=== PATIENT | male | born 1990 | race African-American/Black ===

== ENCOUNTER 2017-12-18 07:24 | Day surgery (SDC) | payer OTHER ==
[2017-12-15 14:40] LABS: Hematocrit 20.8 % (39.6-49.0)
[2017-12-18] MEDS ORDERED: NA CHLORIDE 0.9% 250 ML ONE (07:42)
[2017-12-18 07:43] VITALS: TEMP 98.1
[2017-12-18] MEDS ORDERED: FUROSEMIDE 40 MG/4 ML VIAL ONE (10:27)
[2017-12-18 10:56] VITALS: BP 161/66
[2017-12-18 12:21] VITALS: O2SAT 97
== END 2017-12-18 11:49 | disposition home or self-care (01) ==
LOC: DS 07:24
PROVIDERS: ATTEND Internal Medicine Nephrology
PROC: 30233N1 Transfusion of Nonautologous Red Blood Cells into Peripheral Vein, Percutaneous Approach (ICD-10-PCS; principal; 2017-12-18)
DX: D63.1 Anemia in chronic kidney disease (principal); N18.6 End stage renal disease; Z99.2 Dependence on renal dialysis
CPT/HCPCS: 36415; 36430; 85014; 85018; 86850; 86900; 86901; P9016

== ENCOUNTER 2019-03-15 13:53 | Emergency (ER) | payer OTHER ==
--- OUTSIDE RECORDS SUMMARY | 2019-03-15 13:56 | XMS REPORT | Clinical Summary ---
:1990 Author Organization [facility] Address [address] [place] [address] Care Team Providers Name Role Phone Dago Ortez MD Primary Care Provider Allergies No Known Allergies Medications Medication Sig Dispensed Refills Start Date End Date Status NIFEdipine CC 1 T PO BID 0 08/28/2018 Active (ADALAT CC) 90 MG 24 hr tablet sevelamer (RENVELA) 3 Tab PO TID 10 09/26/2018 Active 800 mg tablet WITH MEALS AND 1 T PO BID WITH A SNACK carvedilol (COREG) Take 50 mg by 0 Active 25 MG tablet mouth 2 (two) times a day with meals. famotidine (PEPCID) Take 20 mg by 0 Active 20 MG tablet mouth 2 (two) times a day. carvedilol (COREG) TK 2 TS PO BID 0 08/28/2018 Discontinued 25 MG tablet 9 hydrALAZINE 1 T PO BID 1 08/28/2018 Discontinued (APRESOLINE) 100 MG 9 tablet ramipril (ALTACE) 10 ONE PO QHS 2 08/28/2018 Discontinued MG capsule 9 doxazosin (CARDURA) 8mg 2x aday 3 10/26/2018 Discontinued 8 MG tablet 9 doxazosin (CARDURA) Take 8 mg by 0 Discontinued 4 MG tablet mouth 2 (two) 9 times a day. traMADol (ULTRAM) 50 Take 1 tablet 20 tablet 0 12/16/2018 mg tablet (50 mg total) 9 by mouth every 6 (six) hours as needed for moderate pain for up to 5 days. ferrous sulfate Take 1 tablet 30 tablet 0 12/16/2018 (FERROUSUL) 325 (65 (325 mg total) 9 FE) MG tablet by mouth daily with breakfast for 30 days. folic acid (FOLVITE) Take 1 tablet 30 tablet 0 12/16/2018 1 MG tablet (1 mg total) 9 by mouth daily for 30 days. cyanocobalamin Take 1 tablet 30 tablet 0 12/16/2018 (cyanocobalamin) (1,000 mcg 9 1000 MCG tablet total) by mouth daily for 30 days. doxazosin (CARDURA) Take 1 tablet 30 tablet 0 02/09/2019 4 MG tablet (4 mg total) 9 by mouth daily for 30 days. hydrALAZINE Take 1 tablet 60 tablet 0 02/08/2019 (APRESOLINE) 100 MG (100 mg total) 9 tablet by mouth every 12 (twelve) hours for 30 days. ramipril (ALTACE) 10 Take 1 capsule 30 capsule 0 02/09/2019 MG capsule (10 mg total) 9 by mouth daily for 30 days. 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 Overview: Added automatically from request for surgery [id number] Encounters Date Type Specialty Care Team Description 02/26/2019 Office Visit Cardiovascular Elizabeth Clemente Encounter regarding TRA Sanchez vascular access for dialysis for end-stage renal disease (HCC) (Primary Dx) 02/06/2019 Surgery General Surgery LEFT ARM AV FISTULA REVISION 02/06/2019 Anesthesia Event General Surgery Lucinda Bone FNP 02/06/2019 - Hospital Encounter General Internal Orlin De Luna ESRD (end stage renal disease) on dialysis ([facility]); 02/08/2019 Medicine MD Erlinda Anemia of chronic disease Yanira Mcfarland MD 01/04/2019 Prep for Surgery Cardiovascular Elizabeth Clemente ESRD (end stage renal disease) on dialysis ([facility]) (Primary Dx); TRA Sanchez Anemia of chronic disease 01/04/2019 Orders Only Cardiovascular Elizabeth Clemente Encounter regarding TRA Sanchez vascular access for dialysis for end-stage renal disease ([facility]) (Primary Dx) 01/03/2019 Office Visit Cardiovascular Orlin De Luna Aneurysm of arteriovenous dialysis fistula, subsequent encounter (Primary Dx); MD Erlinda Encounter regarding vascular access for dialysis for end- stage renal disease (HCC) 12/24/2018 Telephone Cardiovascular Jakob Cohn MA 12/12/2018 Surgery General Surgery LEFT AV FISTULOGRAM WITH ANGIOPLASTY AND REVISION 12/12/2018 Anesthesia Event General Surgery Lucinda Bone, MARKETING COMMUNICATIONS SPECIALIST 12/12/2018 - Hospital Encounter General Internal Orlin De Luna Aneurysm of 12/16/2018 Medicine MD Erlinda arteriovenous [place], dialysis fistula, MD Yanira initial encounter (HCC) 12/10/2018 Telephone Cardiovascular Jakob Cohn MA 11/27/2018 Telephone Cardiovascular Emilia Raya RN 11/22/2018 Hospital Encounter Radiology Orlin De Luna Preop testing MD Erlinda 11/22/2018 Pre-Admit Testing Pre-Admission Testing Orlin De Luna Preop testing (Primary Dx); Appointment MD Erlinda Aneurysm of arteriovenous dialysis fistula, initial encounter (HCC) 11/02/2018 Prep for Surgery Cardiovascular Elkin Raya, DAVID arteriovenous dialysis fistula, initial encounter (HCC) (Primary Dx) 11/02/2018 Orders Only Cardiovascular Elkin Raya RN arteriovenous dialysis fistula, initial encounter (HCC) (Primary Dx) 11/02/2018 Telephone Cardiovascular Jakob Cohn MA 10/18/2018 Office Visit Cardiovascular Orlin De Luna Encounter regarding MD Erlinda vascular access for dialysis for end-stage renal disease (HCC) (Primary Dx) 09/20/2018 Office Visit Cardiovascular Orlin De Luna Aneurysm of arteriovenous dialysis fistula, initial encounter (HCC) (Primary Dx); MD Erlinda Left arm swelling after 03/14/2018 Family History Medical History Relation Name Comments Hypertension Father Hypertension Mother Relation Name Status Comments Father Alive Mother Alive Social History Tobacco Use Types Packs/Day Years Used Date Never Smoker Smokeless Tobacco: Never Used Alcohol Use Drinks/Week oz/Week Comments No Alcohol Habits Answer Date Recorded How often do you have a drink containing alcohol? Never 12/12/2018 How many drinks containing alcohol do you have on a typical Not asked day when you are drinking? How often do you have six or more drinks on one occasion? Not asked Sex Assigned at Date Recorded Not on file Job Start Date Occupation Industry Not on file Not on file Not on file Travel History Travel Start Travel End No recent travel history available. Last Filed Vital Signs Vital Sign Reading Time Taken Blood Pressure 135/70 02/26/2019 11:15 AM CDT Pulse 81 02/26/2019 11:15 AM CDT Temperature 37.2 C (99 F) 02/08/2019 4:16 PM CDT Respiratory Rate 25 02/08/2019 4:30 PM CDT Oxygen Saturation 96% 02/26/2019 11:15 AM CDT Inhaled Oxygen Concentration - - Weight 98.9 kg (218 lb) 02/08/2019 3:45 AM CDT Height 195.6 cm (6' 5") 02/06/2019 8:37 PM CDT Body Mass Index 25.85 02/06/2019 8:37 PM CDT Plan of Treatment Health Maintenance Due Date Last Done Comments INFLUENZA VACCINE 03/21/2019 Procedures Procedure Name Priority Date/Time Associated Comments Diagnosis HEPATITIS B SURFACE Routine 02/08/2019 12:45 Results for this ANTIGEN PM CDT procedure are in the results section. HEMODIALYSIS Routine 02/08/2019 12:12 PM CDT ESTIMATED GFR Routine 02/08/2019 6:25 Results for this AM CDT procedure are in the results section. BASIC METABOLIC PANEL Routine 02/08/2019 6:25 Results for this AM CDT procedure are in the results section. HC COMPLETE BLD COUNT Routine 02/08/2019 6:25 Results for this W/AUTO DIFF AM CDT procedure are in the results section. ESTIMATED GFR Routine 02/07/2019 5:10 Results for this AM CDT procedure are in the results section. BASIC METABOLIC PANEL Routine 02/07/2019 5:10 Results for this AM CDT procedure are in the results section. CBC WITH PLATELET AND Routine 02/07/2019 5:10 Results for this DIFFERENTIAL AM CDT procedure are in the results section. NV AN ELECTIVE Routine 02/06/2019 2:07 SUPRAGLOTTIC AIRWAY PM CDT Procedure Note - Efrem Nielson CRNA - 02/06/2019 2:07 PM CDT Airway Date/Time: 02/06/2019 1:11 PM Performed by: Efrem Nielson CRNA Authorized by: Bhanu Hamilton MD Location: OR Urgency: Elective Anesthesiologist: Bhanu Hamilton MD Resident/BURNISHER AND BUMPER/AA: Efrem Nielson CRNA Performed by: resident/BURNISHER AND BUMPER/AA Preoxygenated with 100% O2: Yes Mask Ventilation: Easy mask Final Airway Type: Supraglottic airway Final LMA: I-Gel LMA Size: 5 Number of Attempts at Approach: 1 POC PANEL 4 Routine 02/06/2019 11:54 AM Results for this CDT procedure are in the results section. ESTIMATED GFR STAT 02/06/2019 11:50 AM Results for this CDT procedure are in the results section. TYPE AND SCREEN STAT 02/06/2019 11:50 AM Results for this CDT procedure are in the results section. PROTHROMBIN TIME WITH STAT 02/06/2019 11:50 AM ESRD (end stage Results for this INR CDT renal disease) on procedure are in dialysis ([facility]) the results section. PARTIAL THROMBOPLASTIN STAT 02/06/2019 11:50 AM ESRD (end stage Results for this TIME (PTT) CDT renal disease) on procedure are in dialysis ([facility]) the results section. HC COMPLETE BLD COUNT STAT 02/06/2019 11:50 AM ESRD (end stage Results for this W/AUTO DIFF CDT renal disease) on procedure are in dialysis ([facility]) the results Anemia of chronic section. disease BASIC METABOLIC PANEL STAT 02/06/2019 11:50 AM ESRD (end stage Results for this CDT renal disease) on procedure are in dialysis ([facility]) the results section. ESTIMATED GFR Routine 12/16/2018 5:44 AM Results for this CDT procedure are in the results section. BASIC METABOLIC PANEL Routine 12/16/2018 5:44 AM Results for this CDT procedure are in the results section. HC COMPLETE BLD COUNT Routine 12/16/2018 5:44 AM Results for this W/AUTO DIFF CDT procedure are in the results section. HEMODIALYSIS Routine 12/15/2018 11:19 AM CDT HC COMPLETE BLD COUNT Routine 12/15/2018 6:14 AM Results for this W/AUTO DIFF CDT procedure are in the results section. ESTIMATED GFR Routine 12/15/2018 6:14 AM Results for this CDT procedure are in the results section. BASIC METABOLIC PANEL Routine 12/15/2018 6:14 AM Results for this CDT procedure are in the results section. TRANSFUSE RED BLOOD STAT 12/14/2018 11:39 AM CELLS CDT HEMODIALYSIS Routine 12/14/2018 10:52 AM CDT HEPATITIS B SURFACE Routine 12/14/2018 7:30 AM Results for this ANTIBODY CDT procedure are in the results section. HEPATITIS B SURFACE AB, Routine 12/14/2018 7:30 AM Results for this QUANTITATIVE CDT procedure are in the results section. HEPATITIS B SURFACE Routine 12/14/2018 7:30 AM Results for this ANTIGEN CDT procedure are in the results section. ESTIMATED GFR Routine 12/14/2018 5:15 AM Results for this CDT procedure are in the results section. HC COMPLETE BLD COUNT Routine 12/14/2018 5:15 AM Results for this W/AUTO DIFF CDT procedure are in the results section. BASIC METABOLIC PANEL Routine 12/14/2018 5:15 AM Results for this CDT procedure are in the results section. ESTIMATED GFR Routine 12/13/2018 6:00 AM Results for this CDT procedure are in the results section. HC COMPLETE BLD COUNT Routine 12/13/2018 6:00 AM Results for this W/AUTO DIFF CDT procedure are in the results section. BASIC METABOLIC PANEL Routine 12/13/2018 6:00 AM Results for this CDT procedure are in the results section. OR FL < 1 HOUR Routine 12/12/2018 7:52 PM Results for this CDT procedure are in the results section. MAGNESIUM LEVEL Routine 12/12/2018 6:38 PM Results for this CDT procedure are in the results section. GLUCOSE LEVEL, SYRINGE Routine 12/12/2018 6:38 PM Results for this CDT procedure are in the results section. IONIZED CALCIUM, Routine 12/12/2018 6:38 PM Results for this ARTERIAL CDT procedure are in the results section. POTASSIUM, SYRINGE Routine 12/12/2018 6:38 PM Results for this CDT procedure are in the results section. HEMOGLOBIN, SYRINGE Routine 12/12/2018 6:38 PM Results for this CDT procedure are in the results section. ARTERIAL BLOOD GAS, Routine 12/12/2018 6:38 PM Results for this CORRECTED CDT procedure are in the results section. SODIUM LEVEL, SYRINGE Routine 12/12/2018 6:38 PM Results for this CDT procedure are in the results section. ACTIVATED CLOTTING TIME Routine 12/12/2018 6:35 PM Results for this CDT procedure are in the results section. MAGNESIUM LEVEL Routine 12/12/2018 5:44 PM Results for this CDT procedure are in the results section. GLUCOSE LEVEL, SYRINGE Routine 12/12/2018 5:44 PM Results for this CDT procedure are in the results section. HEMOGLOBIN, SYRINGE Routine 12/12/2018 5:44 PM Results for this CDT procedure are in the results section. IONIZED CALCIUM, Routine 12/12/2018 5:44 PM Results for this ARTERIAL CDT procedure are in the results section. POTASSIUM, SYRINGE Routine 12/12/2018 5:44 PM Results for this CDT procedure are in the results section. SODIUM LEVEL, SYRINGE Routine 12/12/2018 5:44 PM Results for this CDT procedure are in the results section. ARTERIAL BLOOD GAS, Routine 12/12/2018 5:44 PM Results for this CORRECTED CDT procedure are in the results section. ACTIVATED CLOTTING TIME Routine 12/12/2018 5:40 PM Results for this CDT procedure are in the results section. ARTERIAL LINE Routine 12/12/2018 4:55 PM CDT Procedure Note - Crescencio Nicholson - 12/12/2018 4:55 PM CDT Arterial line Performed by: Crescencio Nicholson CRNA Authorized by: Aby Robles MD Patient Location: OR Staff: Anesthesiologist: Aby Robles MD Performed by: Anesthesiologist Pre-procedure: patient identified, IV checked, site and side verified, risks and benefits discussed, procedure verified, surgical consent complete, patient position confirmed, monitors and equipment checked and pre-op evaluation complete MSBT: antiseptic used, all elements of maximal sterile barrier technique followed, hand hygiene performed, cap/gown used by other personnel and solutions labeled Indications: Indications: multiple ABGs and hemodynamic monitoring Anesthesia: Anesthesia: General Procedure Details: Arterial Line placement: Placed post induction Line placement site: Radial Line placement side: Right Arterial line gauge: 20 G Number of attempts: 2 Ultrasound guidance used: Yes Post-procedure: Post-procedure: Sterile dressing applied Post procedure circulation, sensation, movement: Normal and unchanged Patient tolerance: Patient tolerated the procedure well with no immediate complications ACTIVATED CLOTTING TIME Routine 12/12/2018 4:48 PM CDT ACTIVATED CLOTTING TIME Routine 12/12/2018 4:40 PM CDT HEMOGLOBIN, SYRINGE Routine 12/12/2018 4:34 PM CDT IONIZED CALCIUM, ARTERIAL Routine 12/12/2018 4:34 PM CDT MAGNESIUM LEVEL Routine 12/12/2018 4:34 PM CDT POTASSIUM, SYRINGE Routine 12/12/2018 4:34 PM CDT GLUCOSE LEVEL, SYRINGE Routine 12/12/2018 4:34 PM CDT SODIUM LEVEL, SYRINGE Routine 12/12/2018 4:34 PM CDT ARTERIAL BLOOD GAS, Routine 12/12/2018 4:34 PM CDT Results for this CORRECTED procedure are in the results section. NV AN ELECTIVE SUPRAGLOTTIC Routine 12/12/2018 1:21 PM CDT AIRWAY Procedure Note - Sabrina Kuo CRNA - 12/12/2018 1:21 PM CDT Airway Date/Time: 12/12/2018 1:10 PM Performed by: Sabrina Kuo CRNA Authorized by: Aby Robles MD Location: OR Urgency: Elective Difficult Airway: No Anesthesiologist: Aby Robles MD Resident/BURNISHER AND BUMPER/AA: Sabrina Kuo CRNA Performed by: resident/DARLYN/AA Preoxygenated with 100% O2: Yes C-spine Precautions Maintained Throughout: Yes Mask Ventilation: Easy mask Final Airway Type: Supraglottic airway Final LMA: I-Gel LMA Size: 5 Number of Attempts at Approach: 1 POC PANEL 4 Routine 12/12/2018 11:48 Results for this AM CDT procedure are in the results section. PREPARE RBC STAT 12/12/2018 11:40 Results for this AM CDT procedure are in the results section. PREPARE RBC STAT 12/12/2018 11:40 Results for this AM CDT procedure are in the results section. ESTIMATED GFR STAT 12/12/2018 11:40 Results for this AM CDT procedure are in the results section. TYPE AND SCREEN STAT 12/12/2018 11:40 Results for this AM CDT procedure are in the results section. PARTIAL THROMBOPLASTIN STAT 12/12/2018 11:40 Results for this TIME (PTT) AM CDT procedure are in the results section. PROTHROMBIN TIME WITH STAT 12/12/2018 11:40 Results for this INR AM CDT procedure are in the results section. BASIC METABOLIC PANEL STAT 12/12/2018 11:40 Results for this AM CDT procedure are in the results section. HC COMPLETE BLD COUNT STAT 12/12/2018 11:40 Results for this W/AUTO DIFF AM CDT procedure are in the results section. XR CHEST 2 VW Routine 11/22/2018 11:37 Preop testing Results for this AM CDT procedure are in the results section. TYPE AND SCREEN Routine 11/22/2018 11:08 Preop testing Results for this AM CDT procedure are in the results section. HC COMPLETE BLD COUNT Routine 11/22/2018 11:08 Aneurysm of Results for this W/AUTO DIFF AM CDT arteriovenous procedure are in dialysis fistula, the results initial encounter section. (HCC) PROTHROMBIN TIME WITH Routine 11/22/2018 11:08 Aneurysm of Results for this INR AM CDT arteriovenous procedure are in dialysis fistula, the results initial encounter section. (HCC) PARTIAL THROMBOPLASTIN Routine 11/22/2018 11:08 Aneurysm of Results for this TIME (PTT) AM CDT arteriovenous procedure are in dialysis fistula, the results initial encounter section. (HCC) ECG PRE/POST OP Routine 11/22/2018 10:09 Preop testing Results for this AM CDT procedure are in the results section. after 03/14/2018 Results Hepatitis B surface antigen (02/08/2019 12:45 PM CDT)Only the most recent of2 resultswithin the time period is included. Pathologist [facility] Hepatitis B surface Non-reactive Non-reactive [facility] Specimen Blood Performing Organization Address City/State/Zipcode Phone Number [facility] DEPARTMENT OF PATHOLOGY [address] [place] [address] AND GENOMIC MEDICINE [facility] [id number] Estimated GFR (02/08/2019 6:25 AM CDT)Only the most recent of8 resultswithin the time period is included. [facility] Estimated GFR 6 (A) mL/min/1.73 [facility] Comment: m2 [place] CatergoryUnitsInterpretation HOSPITAL G1 >=90 Normal or high G2 60-89Mildly decreased [id number] to moderately decreased [id number] to severely decreased G4 15-29Severely decreased G5 <15Kidney failure The eGFR was calculated using the Chronic Kidney Disease Epidemiology Collaboration (CKD-EPI) equation. Interpretation is based on recommendations of the National Kidney Foundation-Kidney Disease Outcomes Quality Initiative (NKF-KDOQI) published in 2014. Specimen Plasma specimen Performing Organization Address City/State/Zipcode Phone Number [facility] DEPARTMENT OF PATHOLOGY [address] [place] [address] AND GENOMIC MEDICINE [facility] [address] [place] [address] HOSPITAL CBC with platelet and differential (02/08/2019 6:25 AM CDT)Only the most recent of9 resultswithin the time period is included. WBC 4.6 4.5 - 11.0 k/uL [facility] RBC 3.07 (L) 4.40 - 6.00 [facility] m/uL [facility] HGB 9.2 (L) 14.0 - 18.0 [facility] g/dL [facility] HCT 29.2 (L) 41.0 - 51.0 % [facility] MCV 95.1 82.0 - 100.0 fL [facility] MCH 30.0 27.0 - 34.0 pg [facility] MCHC 31.5 31.0 - 37.0 [facility] g/dL [facility] RDW - SD 49.6 37.0 - 55.0 fL [facility] MPV 10.0 6.9 - 11.0 fL [facility] Platelet count 162 150 - 400 K/uL [facility] Nucleated RBC 0.00 /100 WBC [facility] Neutrophils 68.0 39.0 - 69.0 % [facility] Lymphocytes 16.7 (L) 25.0 - 45.0 % [facility] Monocytes 7.4 0.0 - 10.0 % [facility] Eosinophils 6.7 (H) 0.0 - 5.0 % [facility] Basophils 0.6 0.0 - 1.0 % [facility] Immature granulocytes 0.6 0.0 - 1.0 % [facility] Specimen Blood Performing Organization Address City/[facility]/Zipcode Phone Number [facility] DEPARTMENT OF PATHOLOGY [address] [place] [address] Basic metabolic panel (02/08/2019 6:25 AM CDT)Only the most recent of8 resultswithin the time period is included. Sodium 138 135 - 148 mEq/L [facility] Potassium 4.5 3.5 - 5.0 mEq/L [facility] Chloride 97 (L) 98 - 112 mEq/L [facility] CO2 30 24 - 31 mEq/L [facility] Anion gap 11@ANIO 7 - 15 mEq/L [facility] BUN 34 (H) 6 - 20 mg/dL [facility] Creatinine 11.03 (H) 0.70 - 1.20 mg/dL [facility] Glucose 87 65 - 99 mg/dL [facility] Calcium 9.1 8.3 - 10.2 mg/dL [facility] Specimen Plasma specimen Performing Organization Address City/[facility] Phone Number [facility] DEPARTMENT OF PATHOLOGY [address] [place] [address] [place] [address] HOSPITAL POC panel 4 (02/06/2019 11:54 AM CDT)Only the most recent of2 resultswithin the time period is included. POC sodium 141 135 - 148 [facility] mmol/L [facility] POC potassium 3.4 (L) 3.5 - 5.0 [facility] mmol/L [facility] POC hematocrit 32 (L) 41 - 51 % [facility] POC glucose 84 65 - 99 mg/dL [facility] POC hemoglobin 10.9 (L) 14.0 - 18.0 [facility] Comment: g/dL [place] Meter ID: [id number] HOSPITAL Informatica: Ricardo Lord Specimen Blood Performing Organization Address City/[facility]/Zipcode Phone Number [facility] DEPARTMENT OF PATHOLOGY [address] [place] [address] [place] [address] HOSPITAL Partial thromboplastin time, activated (02/06/2019 11:50 AM CDT)Only the most recent of3 resultswithin the time period is included. PTT 40.0 (H) 23.0 - 36.0 [facility] Comment: [facility] PTT therapeutic range for unfractionated heparin is HOSPITAL 61.0-112.0 seconds which corresponds to Anti-Xa 0.3-0.7 U/ml. Specimen Blood Performing Organization Address City/[facility]/Zipcode Phone Number [facility] DEPARTMENT OF PATHOLOGY [address] [place] [address] [place] [address] HOSPITAL Prothrombin time with INR (02/06/2019 11:50 AM CDT)Only the most recent of3 resultswithin the time period is included. Prothrombin time 14.5 11.5 - 14.5 [facility] INR 1.2 [place] Comment: [facility] International Normalized Ratio (INR) is a [facility] monitoring tool for patients who are stable on oral anticoagulant therapy. An INR of 2.0-3.0 is suggested for deep vein thrombosis/pulmonary embolism. Specimen Blood Performing Organization Address City/[facility]/Zipcode Phone Number [facility] DEPARTMENT OF PATHOLOGY [address] [place] [address] [place] [address] HOSPITAL Type and screen (02/06/2019 11:50 AM CDT)Only the most recent of3 resultswithin the time period is included. ABO grouping A [facility] Rh type POS [facility] Antibody screen (gel) NEG [facility] Specimen Blood Performing Organization Address City/State/Zipcode Phone Number [facility] DEPARTMENT OF PATHOLOGY [address] [place] [address] Transfuse RBC (12/14/2018 11:39 AM CDT)Only the most recent of2 resultswithin the time period is included.Hepatitis B surface Ab, quantitative (12/14/2018 7: 30 AM CDT) Hepatitis B surface 630.50 IU/L [facility] Comment: The anti-HBs is greater than or equal to 10 IU/L. This patient has either had an antibody response to HBV vaccination, received a transfusion, or has recovered from HBV infection. This patient should be considered immune to hepatitis B. An anti-HBs result greater than or equal to 10 IU/L implies immunity. For post-vaccination antibody testing guidelines for the general public refer to MMWR August 12, 2005/Vol. 54(No. 16);09-12, and for healthcare workers refer to MMWR August 09, 2013/Vol. 62(No. 10);09-08. Reference Interval: anti-HBs 9.99 IU/L or less ....... Negative 10.00 IU/L or greater .... Positive Results greater than 1,000.00 IU/L are reported as greater than 1,000.00 IU/L. This assay should not be used for blood donor screening, associated re-entry protocols, or for screening Human Cell, Tissues and Cellular and Tissue-Based Products (HCT/P). Performed by [employer] ([place]), [address] [place] [address] [id number] [email or web address], Fritz Galan MD - Lab. Director Specimen Serum Performing Organization Address [facility] [place]/[facility]/Zipcode Phone Number [facility] [address] [place] [address] [facility] RE[facility] LAB [address] [place] [phone] Hepatitis B surface antibody (12/14/2018 7:30 AM CDT) Hepatitis B surface Reactive (A) Non-reactive [facility] Specimen Performing Organization Address City/[facility]/Zipcode Phone Number [facility] DEPARTMENT OF PATHOLOGY AND [address] [place] [id number] [facility]IC[facility] [address] [address] [place] < 1 Hour (12/12/2018 7:52 PM CDT) Specimen Narrative Performed At EXAMINATION:OR [place] 1 HOUR [facility] CLINICAL HISTORY:intraoperative IMPRESSION: Fluoroscopy was provided. No radiologist present.Please see procedure report for discussion of procedure, findings. [facility]-[id number] Procedure Note Hm Interface, Radiology Results Incoming - 12/12/2018 8:03 PM CDT EXAMINATION: [place] 1 HOUR CLINICAL HISTORY: intraoperative IMPRESSION: Fluoroscopy was provided. No radiologist present. Please see procedure report for discussion of procedure, findings. [facility]-[id number] Performing Organization Address City/State/Zipcode Phone Number [facility] [address] [place] [address] Sodium level, syringe (12/12/2018 6:38 PM CDT)Only the most recent of3 resultswithin the time period is included. Sodium, syringe 137 125 - 148 mEq/L [facility] Specimen Blood Performing Organization Address City/[facility] Phone Number [facility] DEPARTMENT OF PATHOLOGY [address] [place] [address] [place] [address] HOSPITAL Potassium, syringe (12/12/2018 6:38 PM CDT)Only the most recent of3 resultswithin the time period is included. Potassium, syringe 4.7 3.5 - 5.0 mEq/L [facility] Specimen Blood Performing Organization Address [facility] Centercomo Phone Number [facility] DEPARTMENT OF PATHOLOGY [address] [place] [address] Ionized calcium, arterial (12/12/2018 6:38 PM CDT)Only the most recent of3 resultswithin the time period is included. Ionized calcium, 1.11 1.11 - 1.32 [facility] arterial mmol/L [facility] Specimen Blood Performing Organization Address [facility]/Zipcode Phone Number [facility] DEPARTMENT OF PATHOLOGY [address] [place] [address] [place] [address] HOSPITAL Hemoglobin, syringe (12/12/2018 6:38 PM CDT)Only the most recent of3 resultswithin the time period is included. Hemoglobin, syringe 9.4 (L) 14.0 - 18.0 g/dL [facility] Specimen Blood Performing Organization Address City/[facility] Cent[facility]ode Phone Number [facility] DEPARTMENT OF PATHOLOGY [address] [place] [address] [place] [address] HOSPITAL Glucose level, syringe (12/12/2018 6:38 PM CDT)Only the most recent of3 resultswithin the time period is included. Glucose, syringe 99 65 - 99 mg/dL [facility] Specimen Blood Performing Organization Address [facility] Centercode Phone Number [facility] DEPARTMENT OF PATHOLOGY [address] [place] [address] [place] [address] HOSPITAL Arterial blood gas, corrected (12/12/2018 6:38 PM CDT)Only the most recent of3 resultswithin the time period is included. pH, arterial 7.49 (H) 7.35 - 7.45 [facility] pCO2, arterial 45 35 - 45 mmHg [facility] pO2, arterial 221 (H) 80 - 90 mmHg [facility] Temperature, Celsius 37.0 Degrees C [facility] O2 saturation, 99 95 - 100 % [facility] arterial [facility] pH, arterial 7.49 [facility] pCO2, arterial 45 mmHg [facility] pO2, arterial 221 mmHg [facility] Base excess, arterial 9 (H) -2 - 2 mEq/L [facility] Specimen Blood Performing Organization Address [facility] Phone Number [facility] DEPARTMENT OF PATHOLOGY [address] [place] [address] [place] [address] HOSPITAL Magnesium level (12/12/2018 6:38 PM CDT)Only the most recent of3 resultswithin the time period is included. Magnesium 1.8 1.6 - 2.6 mg/dL [facility] Specimen Plasma specimen Performing Organization Address City/[facility]/Zipcode Phone Number [facility] DEPARTMENT OF PATHOLOGY [id number] [place] [address] Activated clotting time (12/12/2018 6:35 PM CDT)Only the most recent of4 resultswithin the time period is included. Activated clotting 122 96 - 152 sec [facility] Comment: [place] Meter ID: [id number] ?Inform[employer]: Name not found in RALS Specimen Performing Organization Address [facility]/Zipcode Phone Number [facility] DEPARTMENT OF PATHOLOGY [address] [place] [address] Prepare RBC, 1 Units (12/12/2018 11:40 AM CDT)Only the most recent of2 resultswithin the time period is included. Product name Red Blood Cells [facility] -1, Leukored [facility] Unit number [id number] [facility] Product code [id number] [facility] Dispense status Transfused [facility] Blood expiration [id number] [facility] Blood type code 6200 [facility] Blood type A POSITIVE [facility] Specimen Blood Performing Organization Address City/[facility]/Zipcode Phone Number [facility] DEPARTMENT OF PATHOLOGY [address] [place] [address] XR Chest 2 Vw (11/22/2018 11:37 AM CDT) Specimen Narrative Performed At EXAMINATION:XR CHEST 2 VW [facility] CLINICAL HISTORY:Z01.818 Encounter for other preprocedural examination, Routine CXR [id number] surgery, Pre OP Testing COMPARISON: None . IMPRESSION: 1.Heart size is enlarged. 2.There is interstitial prominence in lungs bilaterally probably involving the lung bases. Differential considerations include the possibility of infection or interstitial changes relating to the patient's volume status. 3.A pleural effusion or pneumothorax is not identified. Osseous structures are intact. [facility]-[id number] Procedure Note Hm Interface, Radiology Results Incoming - 11/22/2018 11:44 AM CDT EXAMINATION: XR CHEST 2 VW CLINICAL HISTORY: Z01.818 Encounter for other preprocedural examination, Routine CXR pre-op high-risk surgery, Pre OP Testing COMPARISON: None . IMPRESSION: 1. Heart size is enlarged. 2. There is interstitial prominence in lungs bilaterally probably involving the lung bases. Differential considerations include the possibility of infection or interstitial changes relating to the patient's volume status. 3. A pleural effusion or pneumothorax is not identified. Osseous structures are intact. [id number] Performing Organization Address [facility] Centercomo Phone Number [facility] [address] [place] [address] ECG Pre/Post Op (11/22/2018 10:09 AM CDT) Ventricular rate 74 [facility] Atrial rate 74 [facility] NV interval 158 [facility] QRSD interval 112 [facility] QT interval 412 [facility] QTC interval 457 [facility] P axis 1 51 [facility] QRS axis 1 72 [facility] T wave axis 110 [facility] EKG impression Normal sinus [facility] rhythm-Nonspecific ST abnormality-Abnormal ECG-No previous ECGs available- Specimen Narrative Performed At Performing Organization Address [facility]com[facility] Phone Number [facility] [employer] [address] [place] [address] after 03/14/2018 Insurance Payer Benefit Plan / Subscriber ID Effective Dates Phone Address Type Group MEDICARE MEDICARE PART A xxxxxxxxxxx 2015-Present [place], [place] Medicare AND B CIGNA CIGNA OPEN xxxxxxxxxxx 2015-Present O ACCESS/NETWORK Advance Directives Patient has advance care planning documents, and code status on file. For more information, please contact:Jacob Plata[address] [place] [address] Code Status Date Activated Date Inactivated Comments Full Code 02/06/2019 8:42 PM 02/08/2019 10:44 PM Code Status decision reached by: Patient
--- OUTSIDE RECORDS SUMMARY | 2019-03-15 13:57 | XMS REPORT ---
:1990 [facility] Address [address] [place] [address] Dr. [address] [place] [address] Care Team Providers Name Role Phone Unavailable Unavailable Unavailable Problems This patient has no known problems. Allergies, Adverse Reactions, Alerts This patient has no known allergies or adverse reactions. Medications This patient has no known medications. Encounters Start End Encounter Admission Attending Care Care Encounter Date/Time Date/Time Type Type Clinicians Facility Department ID 2019-03-13 Outpatient [facility] CAR [id number] 15:38:29 2019-02-13 Outpatient [facility] CAR 7520 15:11:59 2019-01-07 Outpatient [facility] PUL [id number] 15:14:45 2018-11-26 Inpatient [facility] [id number] 15:57:49 2018-11-26 Outpatient [facility] CAR [id number] 15:57:24 2019-02-14 2019-02-14 Outpatient [facility] [id number] 13:21:00 13:21:00
--- OUTSIDE RECORDS SUMMARY | 2019-03-15 13:57 | XMS REPORT | Continuity of Care Document ---
:1990 Author Organization [employer] Care Team Providers Name Role Phone [facility] Unavailable Unavailable Problems Problem Status Onset Classification Date Comments Source Date Reported ARF Active Finding 12/18/[address] [facility] [place] Weakness Active Finding 12/18/[address] [facility] [place] High blood Active Finding 12/18/[address] [facility] pressure 6 - [place] Vomiting Active Finding 12/18/[address] [facility] [place] Medications Medication Details Route Status Patient Ordering Order Source Instructions Provider Date Hydralazine TWICE Active Carmen [facility] [place] Carvedilol TWICE Active Carmen [facility] [place] Losartan DAILY Active Carmen [facility] Potassium [facility] [place] Nifedipine DAILY Active Carmen [facility] [place] Allergies, Adverse Reactions, Alerts Substance Category Reaction Severity Reaction Status Date Comments Source type Reported No Known Unknown Allergy to Active [facility] All[facility]ies [place] No Known Unknown Allergy to Active [facility] [place] Immunizations No Data Provided for This Section Results Order Name Results Value Reference Date Interpretation Comments Source Range Laboratory Hemoglobin 7.6 13.6 - 17.9 12/18/ [facility] [place] Laboratory Hematocrit 21.8 39.6 - 49.0 12/18/ [facility] [place] Pathology Reports No Data Provided for This Section Diagnostic Reports No Data Provided for This Section Consultation Notes No Data Provided for This Section Discharge Summaries No Data Provided for This Section History and Physicals No Data Provided for This Section Vital Signs Vital Sign Value Date Comments Source Temperature Oral (F) 98.1 F 12/18/2017 [facility] Heart Rate 76 12/18/2017 [facility] Hubbard Respitory Rate 20 12/18/2017 [facility] - [place] Systolic (mm Hg) 161 12/18/2017 [facility] Diastolic (mm Hg) 66 12/18/2017 D[facility] Hubbard Height 78 12/18/2017 [facility] Hubbard Weight 232.00 12/18/2017 [facility] Hubbard Encounters Location Location Encounter Encounter Reason Attending ADM DC Status Source Details Type Number For Provider Date Date Visit DANNI Gore Registered [id number] 12/13 [facility] [place] DANNI Gore Departed [id number] 12/18 12/[address] [facility] - [facility] [place] Procedures No Data Provided for This Section Assessment and Plan No Data Provided for This Section Plan of Care Plan of Care Date Source No known plan of care. 12/18/2017 DANNI Hubbard No known plan of care. 12/18/2017 [facility] Hubbard Social History Social History Date Source Query Response Date Recorded Comment 12/18/2017 [facility] Alcohol Use? Yes August 21, 2015 4:01pm CD- Drugs? No August 21, 2015 4:01pm Family History Value Date Source Query Response Instance Date Recorded Comment 12/18/2017 DANNI Hubbard Nurses notes kidney polycystic disease aneurysm 1997 uncle August 21, 2015 4:01pm Nurses notes polycystic kidney disease mom August 21, 2015 4:01pm Nurses notes polycystic kidney disease August 21, 2015 4:01pm Medical History Heart disease Stroke Kidney disease uncle August 21, 2015 4:01pm Medical History Hypertension Kidney disease mom August 21, 2015 4:01pm Medical History Hypertension Kidney disease August 21, 2015 4:01pm Advance Directives Order Name Results Value Date Source Advance Directives Advance Directives Advance Directive Response Recorded Date/Time 12/18/2017 DANNI Davis - Does Patient Have Living Will [place] No August 31, 2015 6:00pm Durable Power of Garage Manager for Health Care No August 21, 2015 4:01pm Functional Status No Data Provided for This Section
[2019-03-15] MEDS ORDERED: ONDANSETRON 4 MG/2 ML VIAL ONE (15:44)
[2019-03-15] MEDS ORDERED: MORPHINE 4 MG/ML SYR ONE ×2 (15:44→15:51)
[2019-03-15] MEDS ORDERED: LIDOCAINE 1% MPF 5 ML VIAL ONE (16:43)
--- NOTE | 2019-03-15 17:55 | EDPHYS ---
Physician Documentation [facility] Name: Clyde Juárez Age: 28 yrs Sex: Male : 1990 Arrival Date: 03/15/2019 Time: 13:54 Bed 24 Private MD: ED Physician Navjot Beltrán HPI: 03/15 15:06 This 28 yrs old Black Male presents to ER via Ambulatory with complaints of Penile jmm Problem. 15:06 The patient presents with swelling. Onset: The symptoms/episode began/occurred jmm gradually, at 11:30. Modifying factors: The symptoms are alleviated by nothing, the symptoms are aggravated by nothing. This is a 28 year old male with a history of esrd that presents to the ED with complaints of an erection beginning at approx 1130 am. Patient has had a similar episode a few months prior. . Historical: - Allergies: 14:28 No Known Allergies; ss - PMHx: 14:28 Hypertension; ESRD; dialysis MWF; ss - PSHx: 14:28 pins put in right thumb; fistula left upper arm; ss - Immunization history:: Adult Immunizations up to date. - Social history:: Smoking status: Patient/guardian denies using tobacco. - Ebola Screening: : Patient denies exposure to infectious person Patient denies travel to an Ebola-affected area in the 21 days before illness onset. ROS: 15:06 Constitutional: Negative for fever, chills, and weight loss, Cardiovascular: Negative jmm for chest pain, palpitations, and edema, Respiratory: Negative for shortness of breath, cough, wheezing, and pleuritic chest pain. 15:06 : Positive for penile pain. 15:06 All other systems are negative. Exam: 15:06 Constitutional: This is a well developed, well nourished patient who is awake, alert, jmm and in no acute distress. Head/Face: atraumatic. Eyes: EOMI, no conjunctival erythema appreciated ENT: Moist Mucus Membranes Neck: Trachea midline, Supple Chest/axilla: Normal chest wall appearance and motion. Cardiovascular: Regular rate and rhythm. No edema appreciated Respiratory: Normal respirations, no respiratory distress appreciated Abdomen/GI: Non distended, soft Back: Normal ROM 15:06 Skin: General appearance color normal MS/ Extremity: Moves all extremities, no obvious deformities appreciated, no edema noted to the lower extremities Neuro: Awake and alert, normal gait Psych: Behavior is normal, Mood is normal, Patient is cooperative and pleasant 15:06 : Male external genitalia: swelling: penile, that is moderate. Vital Signs: 14:26 BP 143 / 69; Pulse 76; Resp 16; Temp 99.0(TE); Pulse Ox 99% on R/A; Weight 95.25 kg; ss Height 6 ft. 5 in. (195.58 cm); Pain 10/10; 16:01 BP 161 / 93; Pulse 75; Resp 16; Pulse Ox 100% ; rv 16:30 BP 162 / 99; Pulse 75; Resp 15; Pulse Ox 100% on R/A; rv 17:00 BP 162 / 101; Pulse 79; Resp 15; Pulse Ox 97% on R/A; rv 17:30 BP 160 / 101; Pulse 79; Resp 14; Pulse Ox 97% on R/A; rv 18:00 BP 165 / 95; Pulse 77; Resp 17; Pulse Ox 99% on R/A; rv 14:26 Body Mass Index 24.90 (95.25 kg, 195.58 cm) Procedures: 15:06 Performed aspiration of cavernous . local lidocaine 1% plain injected at the 9/3 oclock jmm position. Aspirated venous blood bilaterally. Decreased tumescence after procedure. . MDM: 15:06 Patient medically screened. inge 17:54 Data reviewed: vital signs, nurses notes. Counseling: I had a detailed discussion with inge the patient and/or guardian regarding: the historical points, exam findings, and any diagnostic results supporting the discharge/admit diagnosis, the need for outpatient follow up, to return to the emergency department if symptoms worsen or persist or if there are any questions or concerns that arise at home. 17:54 ED course: Unable to perform UA to ESRD. Patient is advised to follow up with Urology jmm for reevaluation. Patient was otherwise given strict return precautions. patient understood and agrees with the plan of care. . 03/15 15:14 Order name: Saline Lock; Complete Time: 15:40 inge Administered Medications: 15:15 Drug: Zofran 4 mg Route: IVP; Site: right antecubital; ca1 15:20 Drug: morphine 4 mg Route: IVP; Site: right antecubital; ca1 18:05 Not Given (discontinued by MD): Terbutaline 10 mg PO once rv Disposition: 03/16 09:49 Co-signature as Attending Physician, Navjot Beltrán MD I agree with the assessment and jovan plan of care. Disposition: 03/15/19 17:54 Discharged to Home. Impression: Priapism. - Condition is Stable. - Discharge Instructions: Priapism. - Medication Reconciliation Form, Thank You Letter, Antibiotic Education, Prescription Opioid Use form. - Follow up: Dotty Mendoza MD; When: 2 - 3 days; Reason: Recheck today's complaints, Continuance of care, Re-evaluation by your physician. Signatures: Navjot Beltrán MD MD cha Mickail, Joel, PA PA jm Bindu Cazares, DAVID RN Trung Mina RN RN Angie Ortiz RN RN ca1 Corrections: (The following items were deleted from the chart) 03/15 18:05 17:26 Urine Dipstick-Ancillary ordered. [facility] 18:09 17:54 03/15/2019 17:54 Discharged to Home. Impression: Priapism. Condition is Stable. rv Forms are Medication Reconciliation Form, Thank You Letter, Antibiotic Education, Prescription Opioid Use. Follow up: Dotty Mendoza; When: 2 - 3 days; Reason: Recheck today's complaints, Continuance of care, Re-evaluation by your physician. [facility] 19:27 15:06 Performed aspiration of cavernous . inge calvin
--- NOTE | 2019-03-15 17:55 | ER ---
Nurse's Notes [facility] Name: Clyde Juárez Age: 28 yrs Sex: Male : 1990 Arrival Date: 03/15/2019 Time: 13:54 Bed 24 Private MD: Diagnosis: Priapism Presentation: 03/15 14:26 Presenting complaint: Patient states: "I have been having erection problems. They come ss periodically, the come and go randomly, and usually last 1 hour, but it's been over two hours, so I'm here." Spouse reports patient had to have it drained 1 month ago. Transition of care: patient was not received from another setting of care. Onset of symptoms was March 15, 2019. Risk Assessment: Do you want to hurt yourself or someone else? Patient reports no desire to harm self or others. Initial Sepsis Screen: Does the patient meet any 2 criteria? No. Patient's initial sepsis screen is negative. Does the patient have a suspected source of infection? No. Patient's initial sepsis screen is negative. Care prior to arrival: None. 14:26 Method Of Arrival: Ambulatory ss 14:26 Acuity: ROSSY 2 ss Historical: - Allergies: 14:28 No Known Allergies; ss - PMHx: 14:28 Hypertension; ESRD; dialysis MWF; ss - PSHx: 14:28 pins put in right thumb; fistula left upper arm; ss - Immunization history:: Adult Immunizations up to date. - Social history:: Smoking status: Patient/guardian denies using tobacco. - Ebola Screening: : Patient denies exposure to infectious person Patient denies travel to an Ebola-affected area in the 21 days before illness onset. Screenin:00 Abuse screen: Denies threats or abuse. Denies injuries from another. Nutritional rv screening: No deficits noted. Tuberculosis screening: No symptoms or risk factors identified. Fall Risk None identified. Assessment: 15:58 General: Appears in no apparent distress. uncomfortable, Behavior is calm, cooperative. rv Pain: Complains of pain in genital. Neuro: Level of Consciousness is awake, alert, obeys commands, Oriented to person, place, time, situation. Cardiovascular: Patient's skin is warm and dry. Respiratory: Airway is patent. GI: No signs and/or symptoms were reported involving the gastrointestinal system. : Reports pain painful erection. EENT: No signs and/or symptoms were reported regarding the EENT system. Derm: Skin is intact. Musculoskeletal: No signs and/or symptoms reported regarding the musculoskeletal system. Vital Signs: 14:26 BP 143 / 69; Pulse 76; Resp 16; Temp 99.0(TE); Pulse Ox 99% on R/A; Weight 95.25 kg; ss Height 6 ft. 5 in. (195.58 cm); Pain 10/10; 16:01 BP 161 / 93; Pulse 75; Resp 16; Pulse Ox 100% ; rv 16:30 BP 162 / 99; Pulse 75; Resp 15; Pulse Ox 100% on R/A; rv 17:00 BP 162 / 101; Pulse 79; Resp 15; Pulse Ox 97% on R/A; rv 17:30 BP 160 / 101; Pulse 79; Resp 14; Pulse Ox 97% on R/A; rv 18:00 BP 165 / 95; Pulse 77; Resp 17; Pulse Ox 99% on R/A; rv 14:26 Body Mass Index 24.90 (95.25 kg, 195.58 cm) ED Course: 13:54 Patient arrived in ED. as 14:28 Triage completed. ss 14:28 Arm band placed on right wrist. ss 15:05 Mauricio Thornton PA is PHCP. [facility] 15:05 Navjot Beltrán MD is Attending Physician. jmm 15:39 Angie Ortiz, RN is Primary Nurse. ca1 15:50 Trung Mina, RN is Primary Nurse. rv 16:00 Patient has correct armband on for positive identification. Placed in gown. Bed in low rv position. Call light in reach. Side rails up X 1. Adult w/ patient. Pulse ox on. NIBP on. 17:54 Dotty Mendoza MD is Referral Physician. jm 18:06 ASPIRATION OF BLOOD IN THE GENITALIA. IV discontinued, intact, bleeding controlled, No rv redness/swelling at site. Pressure dressing applied. Administered Medications: 15:15 Drug: Zofran 4 mg Route: IVP; Site: right antecubital; ca1 15:20 Drug: morphine 4 mg Route: IVP; Site: right antecubital; ca1 18:05 Not Given (discontinued by MD): Terbutaline 10 mg PO once rv Outcome: 17:54 Discharge ordered by MD. alcazar 18:07 Discharged to home ambulatory. rv 18:07 Condition: good 18:07 Discharge instructions given to patient, family, Instructed on discharge instructions, follow up and referral plans. Demonstrated understanding of instructions, follow-up care. 18:09 Patient left the ED. rv Signatures: Mauricio Thornton PA PA jmm Martinez, Amelia as Smirch, Shelby, RN RN ss Trung Mina RN RN rv Angie Ortiz RN RN ca1 Corrections: (The following items were deleted from the chart) 18:09 18:06 No provider procedures requiring assistance completed. rv rv
[2019-03-15 18:57] VITALS: TEMP 99
[2019-03-15 19:03] VITALS: BP 165/95; O2SAT 99
== END 2019-03-15 18:09 | disposition home or self-care (01) ==
LOC: ER 13:53
DX: N48.30 Priapism, unspecified (principal); I12.0 Hypertensive chronic kidney disease with stage 5 chronic kidney disease or end stage renal disease; N18.6 End stage renal disease; Z99.2 Dependence on renal dialysis
CPT/HCPCS: 96375; 96374; 99283; J2405

== ENCOUNTER 2020-11-09 08:55 | Inpatient (IN) | payer OTHER ==
--- OUTSIDE RECORDS SUMMARY | 2020-11-09 09:05 | XMS REPORT | Continuity of Care Document ---
:1990 Author Organization [facility] Address [address] [place] [address] Care Team Providers Name Role Phone Laura Vargas Attending Clinician YOEL Attending Clinician Unavailable AMITA Attending Clinician Unavailable FRAN Attending Clinician Unavailable Odalis Castillo Attending Clinician Dimas Attending Clinician Lorin Attending Clinician OLIVIA Attending Clinician Unavailable Guerita Arango Attending Clinician Agustin Ortez Attending Clinician Eric Guerrier Attending Clinician Blanca Angulo Attending Clinician Sadi Gillette Attending Clinician Laura Vargas Admitting Clinician YOEL Admitting Clinician Unavailable OLIVIA Admitting Clinician Unavailable Odalis Castillo Admitting Clinician Eric Guerrier Admitting Clinician Blanca Angulo Admitting Clinician Problems Condition Condition Condition Status Onset Resolution Last Treating Co mments Source Name Details Category Date Date Treatment Clinician Date LABS Diagnosis Active 2020-11-06 Mem oria 3-17 08:00:00 l LABS 11:00: [place] 00 Active 11/04/2020 [facility] D41.02 Diagnosis Active 2020-10-20 Mem oria 1-21 05:21:00 l D41.02 00:00: [place] 00 Active 09/10/2020 [facility] ESLD Diagnosis Active 2020-06-03 Mem oria 9-17 13:07:00 l ESLD 00:00: [place] 00 Active 05/07/2020 [facility] LISTED Diagnosis Active 2020-04-30 Mem oria UPDATE 8-11 09:10:00 l LISTED 00:00: [place] UPDATE 00 Active 03/31/2020 [facility] ESRD Diagnosis Active 2020-04-30 Mem oria 8-11 13:03:00 l ESRD 00:00: [place] 00 Active 03/31/2020 [facility], [place] SPLIT Diagnosis Active 2020-02-13 Mem oria NIGHT 02-03 16:45:00 l STUDY SPLIT 00:00: [place] [id number] NIGHT 00 STUDY [id number] Active 02/04/2020 [facility] FOLLOW UP/ Diagnosis Active 2020-01-28 Memoria PAH;ESRD 01-14 15:30:00 l FOLLOW 00:00: [place] UP/ 00 PAH;ESRD Active 01/15/2020 [facility] FOLLOW UP Diagnosis Active 2020-05-05 Memoria S/P RHC 01-14 16:43:00 l FOLLOW 00:00: [place] UP S/P RHC 00 Active 01/15/2020 [facility] CCL/ RHC Diagnosis Active 2020-01-21 M emoria - 08:03:00 l CCL/ RHC 00:00: Jose n 00 Active 01/08/2020 [facility] PAH Diagnosis Active 2019-10-20 Mem oria 1-03 15:11:00 l PAH 00:00: [place] 00 Active 08/23/2019 [facility] HIGH Diagnosis Active 2019-04-30 Mem oria CARDIAC 9-04 10:14:00 l OUTPUT HIGH 00:00: [place] CARDIAC 00 OUTPUT Active 04/24/2019 [facility] CCL / RHC Diagnosis Active 2019-04-02 Memoria W/ [place] 03-13 08:29:00 l CCL / 00:00: [place] RHC W/ [place] 00 Active 03/13/2019 [facility] FOLLOW UP Diagnosis Active 2019-05-18 Memoria 5-16 19:15:00 l FOLLOW 00:00: [place] UP 00 Active 9 [facility] PULMONARY Diagnosis Active 2019-04-18 Memoria HYPERTENSI - 11:44:00 l ON 00:00: [place] PULMONARY 00 HYPERTENSI ON Active 9 [facility] CCL / RHC Diagnosis Active 2018-12-28 Memoria - 15:52:00 l CCL / 00:00: [place] RHC 00 Active 09/11/2018 [facility] CLEARANCE Diagnosis Active 2018-11-19 Memoria FOR 08-28 14:36:00 l RENAL/LUNG 00:00: Jose n BIOPSY CLEARANCE 00 FOR RENAL/LUNG BIOPSY Active 08/28/2018 [facility] 1ST NIGHT Diagnosis Active 2017-082018-11-17 Memoria - [id number] 2 16:09:00 l 1ST 00:00: [place] NIGHT - 00 [id number] Active 07/25/2018 [facility] PNEUMONITI Diagnosis Active 2017-082018-11-14 Memoria S 09-10 16:05:00 l 00:00: [place] PNEUMONITI 00 S Active 07/11/2018 [facility] I27.20 - Diagnosis Active 2017-082018-08-19 M emoria PULMONARY - 15:41:00 l HYPERTENSI I27.20 - 00:01: He rmann ON, UNSPEC PULMONARY 00 HYPERTENSI ON, UNSPEC Active 07/03/2018 [facility] DX: Diagnosis Active 2017-082018-11-16 Mem oria R06.00/I27 08 15:36:00 l .20 DX: 00:00: [place] R06.00/I27 00 .20 Active 06/28/2018 [facility] [place] PULMONARY Diagnosis Active 2017-082018-11-14 Memoria HTN, FLUID 0- 16:05:00 l OVERLOAD 00:00: [place] PULMONARY 00 HTN, FLUID OVERLOAD Active 05/21/2018 [facility] N18.6 Diagnosis Active 2017 Mem oria 12-11 14:49:00 l N18.6 00:00: [place] 00 Active 12/11/2017 [facility] NA Diagnosis Active 2017 Mem oria 12-11 08:22:00 l NA 00:00: [place] 00 Active 12/11/[address] [facility] END STAGE Diagnosis Active 2017-12-22 Memoria RENAL 4- 13:45:00 l DISEASE ON END 00:00: Jose mulligan DIALYSIS STAGE 00 RENAL DISEASE ON DIALYSIS Active 12/11/[address] [facility] LAB Diagnosis Active 2017-12-01 Mem oria 4-11 14:25:00 l LAB 11:00: [place] 00 Active 11/29/2017 [facility] F/U Diagnosis Active 2017-11-16 Mem oria 3-06 14:48:00 l F/U 00:00: [place] 00 Active 10/24/2017 [facility] LABH Diagnosis Active 2017-09-01 Mem oria 1-05 15:53:00 l LABH 11:00: [place] 00 Active 08/25/2017 [facility] PA KIDNEY Diagnosis Active 2020-04-06 Memoria ACCT FOR 3-07 10:10:00 l F/C NOTES PA 08:00: [place] ONLY KIDNEY 00 ACCT FOR F/C NOTES ONLY Active 10/25/2016 [facility] CARDIAC Diagnosis Active 2016 Me moria CLEARANCE 3-07 15:05:00 l CARDIAC 00:00: [place] CLEARANCE 00 Active 10/25/2016 [facility] PRE Diagnosis Active 2016-11-03 Mem oria TRANSPLANT 2-08 08:58:00 l VISIT PRE 00:00: [place] TRANSPLANT 00 VISIT Active 09/28/2016 [facility] N/A Diagnosis Active 2016-05-17 Mem oria 05-10 06:57:00 l N/A 00:00: [place] 00 Active 05/10/[address] [facility] Asthma Problem Active 2020-10-19 Memor ia (disorder) 07:43:11 l Asthma [place] (disorder) Active Problem 10/19/2020 [facility], [place] [facility] [place],[facility], [facility], [facility] Dependence Problem Active 2020-10-19 M emoria on renal 07:43:11 l dialysis [place] (finding) Dependence on renal dialysis (finding) Active Problem 10/19/2020 MWF [facility], [place],M Bean [place],[facility], [facility], [place], [facility] End stage Problem Active 2020-10-19 Me moria renal 07:43:11 l disease End [place] (disorder) stage renal disease (disorder) Active Problem 10/19/2020 [facility], [place],[facility] [place],[facility], [facility] [place], [facility] Gastroesop Problem Active 2020-10-19 M emoria hageal 07:43:11 l reflux [place] disease Gastroesop (disorder) hageal reflux disease (disorder) Active Problem 10/19/2020 [facility], [place],[facility] MAR[place],[facility], [facility], [place] [facility], [facility] Hypertensi Problem Active 2020-10-19 M emoria ve 07:43:11 l disorder, [place] systemic Hypertensi arterial ve (disorder) disorder, systemic arterial (disorder) Active Problem 10/19/2020 [facility], [place],[facility] MAR[place]IN V[place],[facility], [facility], [place],[facility], [facility] Obesity Problem Active 2020-10-19 Bernabe lester (disorder) 07:43:11 l Obesity [place] (disorder) Active Problem 10/19/2020 [facility], [place], [place],[facility], [facility], [place],[facility], [facility] Anemia Problem Active 2020-10-19 Memor ia (disorder) 07:43:11 l Anemia [place] (disorder) Active Problem 10/19/2020 [facility], [place], [place],[facility], [facility], [facility] [facility], [facility] Pulmonary Problem Active 2020-10-19 Me moria hypertensi 07:43:11 l on [place] (disorder) Pulmonary hypertensi on (disorder) Active Problem 10/19/2020 [facility], [place],[facility], [facility] Disease of Problem Active 2020-10-19 M emoria bladder 07:43:11 l (disorder) Disease Her ruiz of bladder (disorder) Active Problem 10/19/2020 [facility] Low Problem Active 2020-10-19 Memor ia compliance 07:43:11 l bladder Low [place] (disorder) compliance bladder (disorder) Active Problem 10/19/2020 [facility] 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 of 07:43:11 l 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 Active Problem 10/19/2020 [facility] Overactive Problem Active 2020-10-19 M emoria bladder 07:43:11 l [place] Overactive bladder Active Problem 10/19/2020 [facility] ENCNTR FOR Diagnosis Active 2020-01-28 Memoria GENERAL 15:30:00 l ADULT ENCNTR [place] MEDICAL FOR EXAM W/ GENERAL ADULT MEDICAL EXAM W/ Active [facility] ENCOUNTER Diagnosis Active 2017-12-01 Memoria FOR 14:25:00 l PREPROCEDU Jose n RAL ENCOUNTER LABORATORY FOR E PREPROCEDU RAL LABORATORY E Active [facility] KIDNEY Diagnosis Active 2017-10-04 Mem oria TRANSPLANT 15:41:00 l STATUS KIDNEY [place] TRANSPLANT STATUS Active [facility] PRIMARY Diagnosis Active 2018-01-29 Me moria PULMONARY 11:45:00 l HYPERTENSI PRIMARY Her ruiz ON PULMONARY HYPERTENSI ON Active [facility] END STAGE Diagnosis Active 2017-12-22 Memoria RENAL 13:45:00 l DISEASE END [place] STAGE RENAL DISEASE Active [facility] DYSPNEA, Diagnosis Active 2018-11-16 M emoria UNSPECIFIE 15:36:00 l D DYSPNEA, Jose n UNSPECIFIE D Active [facility] PULMONARY Diagnosis Active 2018-11-16 Memoria HYPERTENSI 15:36:00 l ON, [place] UNSPECIFIE PULMONARY D HYPERTENSI ON, UNSPECIFIE D Active [facility] OBSTRUCTIV Diagnosis Active 2018-11-17 Memoria E SLEEP 16:09:00 l APNEA [place] (ADULT) OBSTRUCTIV (PEDIATR E SLEEP APNEA (ADULT) (PEDIATR Active [facility] HIGH Diagnosis Active 2019-04-30 Mem oria OUTPUT 10:14:00 l HEART HIGH [place] FAILURE OUTPUT HEART FAILURE Active [facility] SLEEP Diagnosis Active 2020-02-13 Mem oria APNEA, 16:45:00 l UNSPECIFIE SLEEP Rahel nn D APNEA, UNSPECIFIE D Active [facility] Pleural Problem 2019-01-21 Bernabe lester effusion, 11:46:42 l not Pleural [place] elsewhere effusion, classified not elsewhere classified 01/21/2019 [facility] Pericardia Problem 2019-01-21 M emoria l effusion 11:46:42 l (noninflam Jose n matory) Pericardia l effusion (noninflam matory) 01/21/2019 [facility] Cardiomega Problem 2019-01-21 M emoria ly 11:46:42 l [place] Cardiomega ly 01/21/2019 [facility] Secondary Problem 2019-01-21 Ak moria pulmonary 11:46:42 l arterial [place] hypertensi Secondary on pulmonary arterial hypertensi on 01/21/2019 [facility] Dyspnea, Problem 2019-01-21 Mem oria unspecifie 11:46:42 l d Dyspnea, Jose n unspecifie d 01/21/2019 [facility] Unspecifie Problem 2018-02-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:01:32 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 unspecifie d morphologi c changes 02/22/2018 [facility] End stage Problem 2019-03-27 Ak moria renal 11:09:14 l disease End [place] stage renal disease 03/27/2019 [facility] Personal Problem 2018-02-22 Mem oria history of 12:01:32 l other Personal Jose n specified history of conditions other specified conditions 02/22/2018 [facility] Abnormal Problem 2018-02-22 Mem oria weight 12:01:32 l loss Abnormal Jose n weight loss 8 [facility] Anemia in Problem 2018-02-28 Ak moria chronic 11:28:45 l kidney Anemia [place] disease in chronic kidney disease 02/28/2018 [facility] Secondary Problem 2018-02-28 Ak moria hyperparat 11:28:45 l hyroidism [place] of renal Secondary origin hyperparat hyroidism of renal origin 02/28/2018 [facility] Obesity, Problem 2019-03-27 Mem oria unspecifie 11:09:14 l d Obesity, Jose n unspecifie d 03/27/2019 [facility] Body mass Problem 2018-02-28 Me moria index 11:28:45 l (BMI) Body [place] 29.0-29.9, mass index adult (BMI) 29.0-29.9, adult 02/28/2018 [facility] Other Problem 2019-02-05 Memor ia nonspecifi 14:19:34 l c abnormal Other Rahel nn finding of nonspecifi lung field c abnormal finding of lung field 02/05/2019 [facility] [place] Dependence Problem 2019-03-27 M emoria on renal 11:09:14 l dialysis [place] Dependence on renal dialysis 03/27/2019 [facility] Gastro-eso Problem 2019-03-27 M emoria phageal 11:09:14 l reflux [place] disease Gastro-eso without phageal esophagiti reflux s disease without esophagiti s 03/27/2019 [facility] Unspecifie Problem 2019-03-27 M emoria d asthma, 11:09:14 l uncomplica Jose n hailey Unspecifie d asthma, uncomplica hailey 03/27/2019 [facility] Anemia, Problem 2019-03-27 Bernabe lester unspecifie 11:09:14 l d Anemia, [place] unspecifie d 03/27/2019 [facility] Body mass Problem 2019-03-27 Me moria index 11:09:14 l (BMI) Body [place] 26.0-26.9, mass index adult (BMI) 26.0-26.9, adult 03/27/2019 [facility] Primary Problem 2018-02-27 Bernabe lester pulmonary 13:43:38 l hypertensi Primary Her ruiz on pulmonary hypertensi on 02/27/2018 [facility] Hypertensi Problem 2018-02-27 M emoria ve heart 13:43:38 l and [place] chronic Hypertensi kidney ve heart disease and with heart chronic failure kidney and with disease stage 5 with heart chronic failure kidney and with disease, stage 5 or end chronic stage kidney renal disease, disease or end stage renal disease 02/27/2018 [facility] Acute on Problem 2018-02-27 Mem oria chronic 13:43:38 l diastolic Acute on Her ruiz (congestiv chronic e) heart diastolic failure (congestiv e) heart failure 02/27/2018 [facility] Anemia in Problem 2018-02-27 Me moria other 13:43:38 l chronic Anemia [place] diseases in other classified chronic elsewhere diseases classified elsewhere 02/27/2018 [facility] Other Problem 2018-02-27 Memor ia disorders 13:43:38 l of Other [place] phosphorus disorders metabolism of phosphorus metabolism 02/27/2018 [facility] Alkalosis Problem 2018-02-27 Me moria 13:43:38 l [place] Alkalosis 02/27/2018 [facility] Hypokalemi Problem 2018-02-27 M emoria a 13:43:38 l [place] Hypokalemi a 02/27/2018 [facility] Morbid Problem 2018-02-27 Memor ia (severe) 13:43:38 l obesity Morbid [place] due to (severe) excess obesity calories due to excess calories 02/27/2018 [facility] Body mass Problem 2018-02-27 Ak moria index 13:43:38 l (BMI) Body [place] 28.0-28.9, mass index adult (BMI) 28.0-28.9, adult 02/27/2018 [facility] Awaiting Problem 2018-02-27 [facility] oria organ 13:43:38 l transplant Awaiting He rmann status organ transplant status 02/27/2018 [facility] Abnormal Problem 2019-03-18 Mem oria findings 11:06:24 l on Abnormal Jose n diagnostic findings imaging of on other diagnostic specified imaging of body other structures specified body structures 03/18/2019 [facility] Venous Problem Resolve 2020-10-19 Bernabe lester thrombosis d 07:43:11 l (disorder) Venous Herm yadira thrombosis (disorder) Resolved Problem 10/19/2020 [facility] History of Problem Resolve 2017-2020-10-19 2020-10-19 Memoria - blood d -30 07:43:11 07:43:11 l transfusio History 00:00: Her ruiz n of - blood 00 (context-d transfusio ependent n category) (context-d ependent category) Resolved 12/18/2017 Problem 10/19/2020 [facility], [place],[facility], [facility], [facility], [facility] History of Past Illness Condition Condition Condition Status Onset Resolution Last Treating Co mments Source Name Details Category Date Date Treatment Clinician Date Obstructiv Problem 2019-04-02 2019-04-02 Memoria e sleep - 11:11:26 11:11:26 l apnea 04:56: [place] (adult) Obstructiv 47 (pediatric e sleep ) apnea (adult) (pediatric ) 09/15/2018 04/02/2019 [facility] Hypertensi Problem 2019-03-27 2019-03-27 Memoria ve chronic - 11:09:14 11:09:14 l kidney 04:33: [place] disease Hypertensi 53 with stage ve chronic 5 chronic kidney kidney disease disease or with stage end stage 5 chronic renal kidney disease disease or end stage renal disease 09/12/2018 03/27/2019 [facility] Pulmonary Problem 2019-03-18 2019-03-18 Memoria hypertensi - 11:06:24 11:06:24 l on, 04:31: [place] unspecifie Pulmonary 58 d hypertensi on, unspecifie d 08/31/2018 03/18/2019 [facility], [place] Pneumonia, Problem 2017-082019-02-05 2019-02-05 Memoria unspecifie 10-10 14:19:34 14:19:34 l d organism 04:42: Jose mulligan Pneumonia, 30 unspecifie d organism 08/09/2018 02/05/2019 [facility] Encounter Problem 2018-02-22 2018-02-22 Memoria for 11-24 12:01:32 12:01:32 l preprocedu 03:05: Jose lynch Encounter 42 cardiovasc for ular preprocedu examinatio ral n cardiovasc ular examinatio n 11/24/2017 02/22/2018 [facility] Encounter Problem 2018-01-03 2018-01-03 Memoria for - 16:50:58 16:50:58 l preprocedu 04:03: Jose lynch Encounter 23 laboratory for examinatio preprocedu n ral laboratory examinatio n 10/04/2017 01/03/2018 [facility] Kidney Problem 2018-2017-12-29 2017-12-29 M emoria transplant -20 16:04:29 16:04:29 l status Kidney 04:07: [place] transplant 34 status 10/10/2017 12/29/2017 [facility] Allergies, Adverse Reactions, Alerts Allergy Allergy Status Severity Reaction(s) Onset Inactive Treating Comm ents Source Name Type Date Date Clinician NKFA NKFA Active Memoria l [place] No Known No Known Active Memori a Medicati Medicati l on on [place] Allergie Allergie s s Social History Social Habit Start Date Stop Date Quantity Comments Source Social History 2020-10-13 2020-10-13 [facility] 13:14:45 13:14:45 Medications Ordered Filled Start Stop Current Ordering Indication Dosage Frequency Signature Comments Components Source Medication Medication Date Date Medication? Clinician (SIG) Name Name Oxycodone Yes 5 mg = 1 Bernabe lester Hydrochlori 2-26 tab, PO, l de 5 MG 20:52: Q4H, PRN Jose n Oral Tablet 00 Pain Score 4-6, X 7 day, # 20 tab, 0 Refill(s), [id number], 195.58, cm, 10/13/20 6:54:00 AURICULOTHERAPIST, Height, 98.8, kg, 10/13/20 6:54:00 AURICULOTHERAPIST, Weight Acetaminoph Yes 650 mg = 2 Memoria en 325 MG 2-26 tab, PO, l Oral Tablet 20:52: Q6H, 0 Herm yadira 00 Refill(s) heparin No Notes: Memoria sodium, 2-25 porcine l porcine 22:00: heparin [place] 2500 UNT/ML 00 Injectable Solution Docusate No Notes: Memoria Sodium 100 2-24 (Same as: l MG Oral 15:00: Colace) [place] Capsule 00 (Do Not [Colace] Crush) sennosides, No Notes: Bernabe lester FPC 8.6 MG 2-24 (Same as: l Oral Tablet 15:00: Senokot) He rmann 00 Miralax No Notes: Memoria 2-24 Dissolve l 15:00: in 8 oz of [place] 00 water or juice. (Same as: Miralax) Oxycodone No Notes: Memori a Hydrochlori 2-24 (Same as: l de 5 MG 14:10: Roxicodone Herm yadira Oral Tablet 00 ) Tylenol No Notes: Do Memor ia 2-24 not exceed l 14:10: 4 gm/day. [place] (Same as: Tylenol) Ancef + No Notes: Memoria sterile 2-24 (Same As: l water 10 mL 14:00: Ancef, Herm yadira 00 Kefzol) MEDICATION WASTE Product Size: 1000 mg Product Wasted: ___ mg Renvela No Notes: Memoria 2-24 Same as: l 14:00: Renvela [place] Dulcolax No Notes: Memoria Laxative 2-24 (Same As: l 13:38: Dulcolax, [place] Bisco-Lax) Acetaminoph No Notes: Do M emoria en 300 MG / 2-24 not exceed l Codeine 13:38: 4gm/day of Herm yadira Phosphate 00 acetaminop 30 MG Oral hen. Tablet (Same as: [Tylenol Tylenol with with Codeine #3] Codeine # 3) carvedilol No Notes: Memor ia 2-24 Give with l 03:00: food. [place] 00 (Same As: Coreg) Famotidine No Notes: Memor ia 20 MG Oral 2-24 (Same as: l Tablet 03:00: Pepcid) NIFEdipine No Notes: Memor ia 90 mg oral 2-24 (Same as: l tablet, 03:00: Adalat [place] extended 00 CC,Procard release ia XL) "Do Not Crush" "Avoid grapefruit and grapefruit juice" Ramipril No 10 mg, 1 Memor ia 2-24 cap, l 03:00: Route: PO, [place] 00 Drug form: CAP, Bedtime, Dosing Weight 98.8, kg, Start date: 10/13/20 21:00:00 AURICULOTHERAPIST, Duration: 30 day, Stop date: 11/11/20 21:00:00 CDT sevelamer Yes TAKE 3 Memori a carbonate 2-24 TABLETS BY l 800 mg oral 00:00: MOUTH Rahel nn tablet 00 THREE TIMES DAILY Zofran No Notes: Memoria 2-23 (Same as: l 23:46: Zofran) [place] 00 MEDICATION WASTE Product Size: 4 mg Product Wasted: ___ mg Tylenol No Notes: Do Memor ia 2-23 not exceed l 23:46: 4 gm/day. [place] (Same as: Tylenol) Maalox No Notes: Memoria Advanced 2-23 (aluminum l Regular 23:46: hydroxide- Herm ydaira Strength magnesium SUSP hyd-simeth icone 200-200-20 mg/5ml 30 ml ud ALEX) Dulcolax No Notes: Memoria Laxative 2-23 (Same As: l 23:46: Dulcolax, Bisco-Lax) Hydralazine No Notes: Bernabe lester Hydrochlori 2-23 (Same as: l de 50 MG 20:18: Apresoline Her ruiz Oral Tablet ) May interfere w/enteral feedings Take With Food sugammadex No Route: IV, M emoria (ANES) 2-23 Drug form: l 17:42: SOLN, ONCE, Stop date: 10/13/20 11:42:00 AURICULOTHERAPIST ondansetron No Route: IV, Memoria (ANES) 2-23 Drug form: l 16:46: INJ, ONCE, Stop date: 10/13/20 10:46:00 AURICULOTHERAPIST cisatracuri No Route: IV, Memoria um (ANES) 2-23 Drug form: l 15:51: INJ, ONCE, Stop date: 10/13/20 9:51:00 AURICULOTHERAPIST Hydralazine No Notes: Bernabe lester 2-23 (Same as: l 15:51: Apresoline [place] ) Push over 5 minutes Labetalol No 10 mg, 2 Bernabe lester 2-23 mL, Route: l 15:51: IVP, Drug form: INJ, Q5Min, Dosing Weight 98.8, kg, PRN Elevated BP, Start date: 10/13/20 9:51:00 AURICULOTHERAPIST, Duration: 5 doses or times, Stop date: 10/14/20 0:00:00 AURICULOTHERAPIST, 0 Oxycodone No Notes: Memori a Hydrochlori 2-23 (Same as: l de 5 MG 15:51: Roxicodone Oral Tablet ) Hydromorpho No Notes: Bernabe lester ne 2-23 Same as l 15:51: Dilaudid Flumazenil No Notes: Memor ia 2-23 (Same as: l 15:51: Romazicon) Naloxone No Notes: Memoria 2-23 Same as l 15:51: Narcan Ondansetron No Notes: Bernabe lester 2-23 (Same as: l 15:51: Zofran) MEDICATION WASTE Product Size: 4 mg Product Wasted: ___ mg lidocaine No Route: IV, Me moria (ANES) 2-23 Drug form: l 15:35: INJ, ONCE, Stop date: 10/13/20 9:35:00 AURICULOTHERAPIST propofol No Route: IV, Mem oria (ANES) 2-23 Drug form: l 15:30: INJ, ONCE, Stop date: 10/13/20 9:30:00 AURICULOTHERAPIST fentaNYL No Route: IV, Mem oria (ANES) 2-23 Drug form: l 15:30: INJ, ONCE, Stop date: 10/13/20 9:30:00 AURICULOTHERAPIST ketAMINE No Route: IV, Mem oria (ANES) 2-23 Drug form: l 15:30: INJ, ONCE, Stop date: 10/13/20 9:30:00 AURICULOTHERAPIST midazolam No Route: IV, Me moria (ANES) 2-23 Drug form: l 15:25: SOLN, ONCE, Stop date: 10/13/20 9:25:00 AURICULOTHERAPIST rocuronium No Route: IV, M emoria (ANES) 2-23 Drug form: l 15:15: INJ, ONCE, Stop date: 10/13/20 9:15:00 AURICULOTHERAPIST ceFAZolin No Route: IV, moria (ANES) 2-23 Drug form: l 15:10: INJ, ONCE, Stop date: 10/13/20 9:10:00 AURICULOTHERAPIST Minoxidil No 7.5 mg, 3 Mem oria 2-23 tab, l 15:00: Route: PO, Drug form: TAB, Daily, Dosing Weight 98.8, kg, Start date: 10/13/20 9:00:00 AURICULOTHERAPIST, Duration: 30 day, Stop date: 11/11/20 9:00:00 CDT Hydromorpho No Notes: Bernabe lester ne -23 (Same as: l 13:37: Dilaudid) conc = 0.5 mg/ml Hydromorph one NITRATING ACID MIXER Dose: ;Delay: ;Basal: Naloxone No Notes: Memoria 2-23 Same as l 13:37: Narcan Lactated No Route: IV, Mem oria Ringers 2-23 Total l Injection 13:35: Volume: Rahel nn IV (ANE) 00 1,000, 1000 mL Start date: 10/13/20 7:35:00 AURICULOTHERAPIST, Stop date: 10/13/20 8:35:00 AURICULOTHERAPIST normal No 1,000 mL, Memori a saline 0.9% - Rate: tko l IV 1,000 mL 13:31: ml/hr, Route: IV, Dosing Weight 98.8 kg, Total Volume: 1,000, Start date: 10/13/20 7:31:00 AURICULOTHERAPIST, Duration: 30 day, Stop date: 11/12/20 7:30:00 CDT, 2.32, m2, 0 Exparel Yes Notes: Memoria 2-23 (Same as: l 13:13: Exparel) NOT FOR IV use Postoperat chica analgesia: Infiltrati on (local): Dose is based on surgical site and volume required to cover the area (in general, the maximum total dose is 266 mg). Bunionecto my: 7 mL into the tissues surroundin g the osteotomy and 1 mL into the subcutaneo us tissue of the surgical site (total dose = 8 mL [106 mg]) Hemorrhoid ectomy: 30 mL (20 mL vial diluted with 10 mL NS) divided and administer ed as 6 injections of 5 mL each (total dose = 30 mL [266 mg]) Interscale ne brachial plexus nerve block: Single dose: Total shoulder arthroplas ty or rotator cuff repair: 133 mg (10 mL) Sodium No 1,000 mL, Memori a Chloride 2-23 Rate: 75 l 0.9% IV 12:10: ml/hr, [place] 1,000 mL 00 Infuse over: 13.3 hr, Route: IV, Dosing Weight 97.727 kg, Total Volume: 1,000, Start date: 10/13/20 6:10:00 AURICULOTHERAPIST, Duration: 30 day, Stop date: 11/12/20 6:09:00 CDT, 2.32, m2, 0 Acetaminoph No Notes: Max [facility]oria en 2-23 acetaminop l 12:10: hen 4000 [place] 00 mg/day (4 gm/day). (Same as: Tylenol Extra Strength) Minoxidil No Notes: Memori a 8-14 (Same l 14:00: as:Loniten ) Ramipril No Notes: Memoria 8-14 (Same as: l 02:00: Altace) carvedilol No Notes: Memor ia 8-13 Give with l 22:00: food. [place] (Same As: Coreg) Famotidine No Notes: Memor ia 20 MG Oral 8-13 (Same as: l Tablet 22:00: Pepcid) [place] 00 NIFEdipine No Notes: Memor ia 90 mg oral 8-13 (Same as: l tablet, 22:00: Adalat [place] extended 00 CC,Procard release ia XL) "Do Not Crush" "Avoid grapefruit and grapefruit juice" Hydralazine No Notes: Bernabe lester Hydrochlori 8-13 (Same as: l de 50 MG 18:00: Apresoline Her ruiz Oral Tablet 00 ) May interfere w/enteral feedings Take With Food. Nitroglycer No Notes: Bernabe lester in - (Same l 16:37: as:Nitroqu [place] 00 ick, Nitrostat) "Do Not Crush" Sublingual tablet minoxidil Yes 7.5 mg = 3 Me moria 2.5 mg oral 7-24 tab, PO, l tablet 16:41: Daily, for Rahel nn 39 a total of 7.5mg, # 270 tab, 3 Refill(s), Pharmacy: [id number] minoxidil No 5 mg = 2 Bernabe lester 2.5 mg oral 7-02 tab, PO, l tablet 19:54: Daily, X [place] 00 30 day, # 60 tab, 0 Refill(s), Pharmacy: [facility] minoxidil No 2.5 mg = 1 Me moria 2.5 mg oral 6-27 tab, PO, l tablet 18:50: Daily, # [place] 00 30 tab, 3 Refill(s), Pharmacy: [facility] Hydralazine Yes 50 mg = 1 M emoria Hydrochlori 1-17 tab, PO, l de 50 MG 22:42: TID, # 90 Herm yadira Oral Tablet 00 tab, 6 Refill(s) Fentanyl 2017-08 No 75 Memoria 1-29 microgram, l 17:50: Route: IV, [place] 00 ONCE, Dosing Weight 101.364, kg, Start date: 07/19/18 11:50:00 AURICULOTHERAPIST, Stop date: 07/19/18 11:50:00 AURICULOTHERAPIST Midazolam 2017-08 No 3 mg, Memoria 1-29 Route: IV, l 17:50: ONCE, Dosing Weight 101.364, kg, Start date: 07/19/18 11:50:00 AURICULOTHERAPIST, Stop date: 07/19/18 11:50:00 AURICULOTHERAPIST Famotidine 2017-08 Yes 20 mg = 1 Me moria 20 MG Oral 1-06 tab, PO, l Tablet 20:20: BID, # 60 Jose n 00 tab, 6 Refill(s), Pharmacy: [facility] Ramipril No Notes: Memoria 5-04 (Same as: l 02:00: Altace) Doxazosin No Notes: Memori a 5-04 (Same as: l 02:00: Cardura) Fentanyl No Notes: [facility] 5-03 (Same as: l 22:53: Sublimaze) Preservat chica free. Flumazenil No Notes: Memor ia 5-03 (Same as: l 22:53: Romazicon) Ondansetron No Notes: Bernabe lester 5-03 (Same as: l 22:53: Zofran) MEDICATION WASTE Product Size: 4 mg Product Wasted: _0__ mg Naloxone No Notes: Memoria 5-03 Same as l 22:53: Narcan Metoprolol No Notes: Memor ia 5-03 (Same as: l 22:53: Lopressor) Push over 2 minutes Hydralazine No Notes: Bernabe lester 5-03 (Same as: l 22:53: Apresoline ) Push over 5 minutes Acetaminoph No Notes: Bernabe lester en 5-03 Infuse l 22:53: over 15 minutes Do not exceed 4gm/day of acetaminop hen MEDICATION WASTE Product Size: 1000 mg Product Wasted: __0_ mg protamine No Route: IV, Me moria (ANES) 12-21 Drug form: l 22:03: INJ, ONCE, Stop date: 12/21/17 17:03:00 CDT NIFEdipine No Notes: Memor ia 90 mg oral 5-03 (Same as: l tablet, 22:00: Adalat [place] extended 00 CC,Procard release ia XL) "Do Not Crush" "Avoid grapefruit and grapefruit juice" Hydralazine No Notes: Bernabe lester Hydrochlori 5-03 (Same as: l de 50 MG 22:00: Apresoline Her ruiz Oral Tablet ) May interfere w/enteral feedings Take With Food. carvedilol No Notes: Memor ia 12-21 Give with l 22:00: food. [place] 00 (Same As: Coreg) Sodium No 250 mL, Memoria Chloride 12-21 Route: l 0.9% IV 21:59: IVPB, Start date: 12/21/17 16:59:00 CDT, Duration: 30 day, Stop date: 01/20/18 16:58:00 CDT, PRN Line Flush BD Normal No Notes: Memori a Saline 12-21 (Same as: l Flush 21:59: BD Posiflush) heparin No Route: IV, Bernabe lester (ANES) 12-21 Drug form: l 21:19: INJ, ONCE, Stop date: 12/21/17 16:19:00 CDT propofol No Route: IV, Mem oria (ANES) 12-21 Drug form: l 20:34: INJ, ONCE, Stop date: 12/21/17 15:34:00 CDT midazolam No Route: IV, Me moria (ANES) 12-21 Drug form: l 20:29: SOLN, ONCE, Stop date: 12/21/17 15:29:00 CDT lidocaine No Route: IV, Me moria (ANES) 12-21 Drug form: l 20:29: INJ, ONCE, Stop date: 12/21/17 15:29:00 CDT fentaNYL No Route: IV, Mem oria (ANES) 12-21 Drug form: l 20:29: INJ, ONCE, Stop date: 12/21/17 15:29:00 CDT NS 0.45% IV No 1,000 mL, M emoria 1,000 mL 12-21 Rate: 50 l 20:06: ml/hr, Infuse over: 20 hr, Route: IV, Dosing Weight 106.818 kg, Total Volume: 1,000, Start date: 12/21/17 15:06:00 CDT, Duration: 30 day, Stop date: 01/20/18 15:05:00 CDT, 2.43, m2 Zofran No Notes: Memoria 5-03 (Same as: l 20:06: Zofran) MEDICATION WASTE Product Size: 4 mg Product Wasted: ___ mg Acetaminoph No Notes: Do M emoria en 325 MG / 12-21 not exceed l Hydrocodone 20:06: 4gm/day of [place] Bitartrate 00 acetaminop 10 MG Oral hen. Tablet (Same as: [place] 325/10) Acetaminoph No Notes: Bernabe lester en 325 MG / 12-21 (Same as: l Hydrocodone 20:06: [place] Rahel nn Bitartrate 00 325/5) Do 5 MG Oral not exceed Tablet 4gm/day of acetaminop hen. Acetaminoph No Notes: Do M emoria en 12-21 not exceed l 20:06: 4 gm/day. (Same as: Tylenol) vancomycin No Route: IV, M emoria (ANES) 2000 12-21 Drug form: l mg 20:05: INJ, Start date: 12/21/17 15:05:00 CDT, Stop date: 12/21/17 16:05:00 CDT Sodium No Route: IV, Memor ia Chloride 12-21 Total l 0.9% IV 19:56: Volume: [place] (ANES) 500 00 500, Start mL date: 12/21/17 14:56:00 CDT, Stop date: 12/21/17 15:56:00 CDT Cefazolin No Notes: Memori a 12-21 (Same As: l 15:00: Ancef, Kefzol) MEDICATION WASTE Product Size: 1000 mg Product Wasted: ___ mg Restoril No Notes: Memoria 12-21 (Same As: l 14:34: Restoril) ramipril 10 Yes 10 mg = 1 M emoria mg oral 4-30 cap, PO, l capsule 18:27: Bedtime Procrit No Notes: Memoria 11-20 WASTE: F/P l 23:33: - Red; E Red MEDICATION WASTE Product Size: 3000 unit Product Wasted: ___ unit Ferrlecit + No Notes: Bernabe lester Sodium 4-02 (sodium l Chloride 22:00: ferric [place] 0.9% IV 100 00 gluconate mL complex (elemental iron) 62.5 mg/5 ml INJ) "Limited stability. Use immediatel y after admixture" (Same as: Ferrlecit) MEDICATION WASTE Product Size: 62.5 mg Product Wasted: ___ mg Sodium No 250 mL, Memoria Chloride 3-31 Rate: To l 0.9% 14:08: prime line [place] (titrate) 00 and flush 250 mL remaining blood products., Dosing Weight 108.636, kg, Route: IV, Total Volume: 250, Priority: Routine, Start Date: 11/18/17 9:08:00 CDT, Duration: 1 day, Stop date: 11/19/17 9:07:00 CDT, Replace Every: 24 hr Ferrlecit + No Notes: Bernabe lester Sodium 3-31 (sodium l Chloride 10:00: ferric [place] 0.9% IV 100 00 gluconate mL complex (elemental iron) 62.5 mg/5 ml INJ) "Limited stability. Use immediatel y after admixture" (Same as: Ferrlecit) MEDICATION WASTE Product Size: 62.5 mg Product Wasted: ___ mg Ferrlecit No Notes: Memori a 3-31 (sodium l 00:45: ferric [place] 00 gluconate complex (elemental iron) 62.5 mg/5 ml INJ) "Limited stability. Use immediatel y after admixture" (Same as: Ferrlecit) MEDICATION WASTE Product Size: 62.5 mg Product Wasted: ___ mg PHOS-NaK 2017- No Notes: Memoria 3-30 (Same as: l 22:06: Phos-NaK) [place] 00 Each 1.5 gm pkt has 250mg phosphorou s. Mix w/2.5oz water and stir. Losartan No Notes: Memoria 3-30 (Same as: l 14:00: Cozaar) [place] 00 Hydralazine No Notes: Bernabe lester Hydrochlori 3-30 (Same as: l de 50 MG 14:00: Apresoline Her ruiz Oral Tablet 00 ) May interfere w/enteral feedings Take With Food Furosemide No Notes: Memor ia 40 MG Oral 3-30 (Same as: l Tablet 14:00: Lasix) [place] [Lasix] 00 May cause GI upset. Give with food or milk. carvedilol No Notes: Memor ia 3-30 Give with l 14:00: food. [place] 00 (Same As: Coreg) Renvela No Notes: Memoria 3-30 Same as: l 13:00: Renvela [place] 00 NIFEdipine No Notes: Memor ia 90 mg oral 3-30 (Same as: l tablet, 10:16: Adalat [place] extended 00 CC,Procard release ia XL) "Do Not Crush" "Avoid grapefruit and grapefruit juice" potassium No Notes: Memori a chloride 20 3-30 (Same as: l mEq oral 02:35: K-Dur 20) Herm yadira tablet, 00 "Do Not extended Crush" For release patients unable to swallow tablet, dissolve in one half glass of water. Allow about 2 minutes for the tablets to disintegra te. Stir before giving to prepare slurry and administer . Please exclude Patient s with feeding tube less than 14 [place] (Dobhoff, J-tube etc) and pediatric and patients. With food and full glass of water Hydralazine No Notes: Bernabe lester Hydrochlori 3-30 (Same as: l de 25 MG 02:00: Apresoline Her ruiz Oral Tablet 00 ) May interfere w/enteral feedings Take With Food. Doxazosin No Notes: Memori a 3-30 (Same as: l 02:00: Cardura) [place] 00 DOBUTamine No Notes: Memor ia 50 mg + 3-29 (Same as: l Dextrose 5% 16:55: Dobutrex) H ermann in Water IV 00 Not for 46 mL direct administra tion- DILUTE. Furosemide No 40 mg = 1 Me moria 40 MG Oral 3-06 tab, PO, l Tablet 14:38: BID, Take Jose n [Lasix] 00 1 tablet by mouth twice daily as needed for swelling., 0 Refill(s) doxazosin 2 Yes 2 mg = 1 Me moria mg oral 3-06 tab, PO, l tablet 14:37: BID, 0 [place] 00 Refill(s) Hydralazine Yes 50 mg = 1 M emoria Hydrochlori 3-06 tab, PO, l de 50 MG 14:36: BID, 0 [place] Oral Tablet 00 Refill(s) Hydralazine Yes 25 mg = 1 M emoria Hydrochlori 3-30 tab, PO, l de 25 MG 20:46: QID, # 90 Herm yadira Oral Tablet 00 tab, 11 Refill(s), [id number] Yes 800 mg = 1 Me moria carbonate -28 tab, PO, l 800 MG Oral 19:36: TID-Meals, [place] Tablet 00 # 90 tab, [Renvela] 0 Refill(s) 24 HR No Notes: Memoria Nifedipine 05-18 (Same l 90 MG 14:00: as:Adalat [place] Extended 00 CC, Release Procardia Tablet XL) Give on empty stomach. Take 1 hour before or 2 hours after meal; "Avoid grapefruit and grapefruit juice". Do not crush Losartan No Notes: Memoria 05-18 (Same as: l 14:00: Cozaar) [place] 00 Hydralazine No Notes: Bernabe lester Hydrochlori 05-17 (Same as: l de 10 MG 22:00: Apresoline Her ruiz Oral Tablet 00 ) May interfere w/enteral feedings. Take With Food carvedilol No Notes: Memor ia 05-17 Give with l 22:00: food. [place] (Same As: Coreg) Acetaminoph Yes 2 tab, PO, Memoria en 300 MG / 05-17 Q4H, PRN l Codeine 17:46: Pain Score Herm yadira Phosphate 00 4-6, # 30 30 MG Oral tab, 0 Tablet Refill(s) Zofran No Notes: Memoria 05-17 (Same as: l 17:44: Zofran) [place] MEDICATION WASTE Product Size: 4 mg Product Wasted: ___ mg acetaminoph No Notes: Do M emoria en-codeine 05-17 not exceed l #3 17:44: 4gm/day of acetaminop hen. (Same as: Tylenol with Codeine # 3) Acetaminoph No Notes: Do M emoria en 05-17 not exceed l 17:44: 4 gm/day. (Same as: Tylenol) Cefazolin No Notes: Memori a 05-17 Same as: l 12:00: Ancef Vancomycin Yes 2001 mg: Me moria 05-17 infuse l 11:59: over 2.5 hours 24 HR No Notes: Memoria Nifedipine 10-20 (Same l 90 MG 15:00: as:Adalat Extended CC, Release Procardia Tablet XL) Give on empty stomach. Take 1 hour before or 2 hours after meal; "Avoid grapefruit and grapefruit juice". Do not crush Losartan No Notes: Memoria 10-20 (Same as: l 15:00: Cozaar) Hydralazine No Notes: Bernabe lester Hydrochlori 10-19 (Same as: l de 10 MG 23:00: Apresoline Her ruiz Oral Tablet ) May interfere w/enteral feedings. Take With Food carvedilol No Notes: Memor ia 10-19 Give with l 23:00: food. (Same As: Coreg) Acetaminoph Yes 2 tab, PO, Memoria en 300 MG / -01 Q4H, PRN l Codeine 15:10: Pain Score Herm yadira Phosphate 00 4-6, # 30 30 MG Oral tab, 1 Tablet Refill(s) Zofran No Notes: Memoria 10-19 (Same as: l 15:08: Zofran) MEDICATION WASTE Product Size: 4 mg Product Wasted: ___ mg acetaminoph No Notes: Do M emoria en-codeine 10-19 not exceed l #3 15:08: 4gm/day of acetaminop hen. (Same as: Tylenol with Codeine # 3) Acetaminoph No Notes: Do M emoria en 10-19 not exceed l 15:08: 4 gm/day. [place] (Same as: Tylenol) Ondansetron No Notes: Bernabe lester 10-19 (Same as: l 14:22: Zofran) [place] 00 MEDICATION WASTE Product Size: 4 mg Product Wasted: ___ mg Dexamethaso No Notes: Bernabe lester ne 10-19 Concentrat l 14:22: ion: [place] 00 4mg/ml Acetaminoph No Notes: Bernabe lester en 10-19 Infuse l 14:22: over 15 [place] 00 minutes Do not exceed 4gm/day of acetaminop hen MEDICATION WASTE Product Size: 1000 mg Product Wasted: ___ mg Labetalol No Notes: Memori a 10-19 (Same as: l 14:22: Normodyne, [place] 00 Trandate) Push over 2 minutes Give bolus over 2-3 minutes. Meperidine No Notes: Memor ia 10-19 (Same as: l 14:22: Demerol) "Use Precaution in Elderly, Seizure disorders, and Renal impairment " Fentanyl No Notes: Memoria 10-19 (Same as: l 14:22: Sublimaze) Preservat chica free. Diphenhydra No Notes: Bernabe lester mine 10-19 (Same as: l 14:22: Benadryl) Ketorolac Yes 4 days Memor ia 10-19 l 14:22: MEDICATION [place] 00 WASTE Product Size: 30 mg Product Wasted: ___ mg Flumazenil No Notes: Memor ia 10-19 (Same as: l 14:22: Romazicon) Naloxone No Notes: Memoria 10-19 (Same as: l 14:22: Narcan) Cefazolin No Notes: Memori a 10-19 Same as: l 13:00: Ancef [place] 00 Vancomycin Yes 2001 mg: Me moria 10-19 infuse l 12:34: over 2.5 [place] 00 hours carvedilol Yes 25 mg = 1 Me moria 25 mg oral 2-29 tab, PO, l tablet 14:44: BID [place] 00 losartan 50 Yes 50 mg = 1 M emoria mg oral 2-29 tab, PO, l tablet 14:44: Daily [place] 00 24 HR Yes 90 mg = 1 Memoria Nifedipine 2-29 tab, PO, l 90 MG 14:44: Daily [place] Extended 00 Release Tablet Hydralazine Yes 10 mg = 1 M emoria Hydrochlori 2-29 tab, PO, l de 10 MG 14:44: BID [place] Oral Tablet 00 Vital Signs Vital Name Observation Time Observation Value Comments Source Temperature Oral (F) 2020-10-17 01:37:00 99.2 F [facility] [place] Heart Rate 2020-10-17 01:37:00 [facility] [place] Systolic (mm Hg) 2020-10-17 01:37:00 Bernabe rial [place] Diastolic (mm Hg) 2020-10-17 01:37:00 Mem orial [place] Temperature Oral (F) 2020-10-17 00:30:00 97.6 F [facility] [place] Heart Rate 2020-10-17 00:30:00 [facility] [place] Respitory Rate 2020-10-17 00:30:00 Memori al [place] Systolic (mm Hg) 2020-10-17 00:30:00 Bernabe rial [place] Diastolic (mm Hg) 2020-10-17 00:30:00 Mem orial [place] Heart Rate 2020-10-17 00:00:00 [facility] [place] Respitory Rate 2020-10-17 00:00:00 Memori al [place] Systolic (mm Hg) 2020-10-17 00:00:00 Bernabe rial [place] Diastolic (mm Hg) 2020-10-17 00:00:00 Mem orial [place] Respitory Rate 2020-10-16 23:30:00 Memori al [place] Temperature Oral (F) 2020-10-16 20:30:00 99.1 F [facility] Height 2020-10-13 12:54:00 195.58 cm [facility] Weight 2020-10-13 12:54:00 [facility] BMI Calculated 2020-10-13 12:54:00 [facility] [place] Height 2020-10-09 17:18:00 198.12 cm [facility] [place] Weight 2020-10-09 17:18:00 [facility] [place] BMI Calculated 2020-10-09 17:18:00 [facility] [place] Height 2020-05-21 19:07:00 195.58 cm [facility] [place] Weight 2020-05-21 19:07:00 [facility] [place] BMI Calculated 2020-05-21 19:07:00 [facility] [place] Systolic (mm Hg) 2020-04-30 18:40:00 Bernabe rial [place] Diastolic (mm Hg) 2020-04-30 18:40:00 Mem orial [place] Heart Rate 2020-04-30 18:40:00 [facility] [place] Respitory Rate 2020-04-30 18:40:00 Mem[facility] al [place] Temperature Oral (F) 2020-04-30 18:40:00 97.3 F [facility] [place] Height 2020-04-30 18:40:00 165.1 cm [facility] [place] Weight 2020-04-30 18:40:00 [facility] [place] BMI Calculated 2020-04-30 18:40:00 Mem[facility] al [place] Systolic (mm Hg) 2020-04-07 12:51:00 Bernabe rial [place] Diastolic (mm Hg) 2020-04-07 12:51:00 Mem o[facility] [place] Heart Rate 2020-04-07 12:51:00 [facility] [place] Respitory Rate 2020-04-07 12:51:00 Mem[facility] al [place] Temperature Oral (F) 2020-04-07 12:51:00 98.1 F [facility] [place] Height 2020-04-07 12:51:00 196 cm [facility] [place] Weight 2020-04-07 12:51:00 [facility] [place] BMI Calculated 2020-04-07 12:51:00 [facility] [place] Systolic (mm Hg) 2020-01-28 18:41:00 Bernabe rial [place] Diastolic (mm Hg) 2020-01-28 18:41:00 Mem orial [place] Heart Rate 2020-01-28 18:41:00 [facility] [place] Respitory Rate 2020-01-28 18:41:00 Mem[facility] al [place] Temperature Oral (F) 2020-01-28 18:41:00 98.4 F [facility] [place] Height 2020-01-28 18:41:00 193.04 cm [facility] [place] Weight 2020-01-28 18:41:00 [facility] [place] BMI Calculated 2020-01-28 18:41:00 Memori al [place] Systolic (mm Hg) 2020-01-21 18:06:00 Bernabe rial [place] Diastolic (mm Hg) 2020-01-21 18:06:00 Mem orial [place] Systolic (mm Hg) 2020-01-21 17:45:00 Bernabe rial [place] Diastolic (mm Hg) 2020-01-21 17:45:00 Mem orial [place] Temperature Oral (F) 2020-01-21 13:32:00 98.8 F [facility] [place] Respitory Rate 2020-01-21 13:32:00 Memori al [place] Systolic (mm Hg) 2020-01-21 13:32:00 Bernabe rial [place] Diastolic (mm Hg) 2020-01-21 13:32:00 Mem orial [place] Height 2020-01-17 20:18:00 195.58 cm [facility] [place] Weight 2020-01-17 20:18:00 [facility] [place] BMI Calculated 2020-01-17 20:18:00 Memori al [place] Systolic (mm Hg) 2019-09-19 19:33:00 Bernabe rial [place] Diastolic (mm Hg) 2019-09-19 19:33:00 Mem orial [place] Heart Rate 2019-09-19 19:33:00 [facility] [place] Respitory Rate 2019-09-19 19:33:00 Memori al [place] Temperature Oral (F) 2019-09-19 19:33:00 98.0 F [facility] [place] Height 2019-09-19 19:33:00 193.04 cm [facility] [place] Weight 2019-09-19 19:33:00 [facility] [place] BMI Calculated 2019-09-19 19:33:00 Mem[facility] [place] Height 2019-04-30 15:08:00 195.58 cm [facility] [place] Weight 2019-04-30 15:08:00 [facility] [place] BMI Calculated 2019-04-30 15:08:00 Memori al [place] Systolic (mm Hg) 2019-04-02 21:23:00 Bernabe rial [place] Diastolic (mm Hg) 2019-04-02 21:23:00 Mem orial [place] Systolic (mm Hg) 2019-04-02 20:30:00 Bernabe rial [place] Diastolic (mm Hg) 2019-04-02 20:30:00 Mem orial [place] Systolic (mm Hg) 2019-04-02 20:27:00 Bernabe rial [place] Diastolic (mm Hg) 2019-04-02 20:27:00 Mem orial [place] Respitory Rate 2019-04-02 20:24:00 Memori al [place] Respitory Rate 2019-04-02 20:21:00 Mem[facility] al [place] Respitory Rate 2019-04-02 20:18:00 Mem[facility] al [place] Height 2019-04-02 13:44:00 195.58 cm [facility] [place] Weight 2019-04-02 13:44:00 [facility] [place] BMI Calculated 2019-04-02 13:44:00 Memori al [place] BMI Calculated 2019-02-19 18:50:00 Mem[facility] [place] Height 2019-02-19 18:50:00 193.04 cm [facility] [place] Weight 2019-02-19 18:50:00 [facility] [place] Temperature Oral (F) 2019-02-19 18:50:00 98.6 F [facility] [place] Respitory Rate 2019-02-19 18:50:00 [facility] [place] Heart Rate 2019-02-19 18:50:00 [facility] [place] Weight 2019-02-14 18:21:00 [facility] [place] BMI Calculated 2019-02-14 18:21:00 [facility] [place] Temperature Oral (F) 2019-02-14 18:21:00 98.2 F [facility] [place] Heart Rate 2019-02-14 18:21:00 [facility] [place] Respitory Rate 2019-02-14 18:21:00 Memori al [place] Systolic (mm Hg) 2019-02-14 18:21:00 Bernabe rial [place] Diastolic (mm Hg) 2019-02-14 18:21:00 Mem orial [place] Height 2019-02-14 18:21:00 193.04 cm [facility] [place] Systolic (mm Hg) 2018-10-09 01:00:00 Bernabe rial [place] Diastolic (mm Hg) 2018-10-09 01:00:00 Mem orial [place] Systolic (mm Hg) 2018-10-09 00:45:00 Bernabe rial [place] Diastolic (mm Hg) 2018-10-09 00:45:00 Mem orial [place] Systolic (mm Hg) 2018-10-09 00:30:00 Bernabe rial [place] Diastolic (mm Hg) 2018-10-09 00:30:00 Mem orial [place] Height 2018-10-08 22:28:00 193.04 cm [facility] [place] Weight 2018-10-08 22:28:00 [facility] [place] BMI Calculated 2018-10-08 22:28:00 Mem[facility] al [place] Temperature Oral (F) 2018-10-08 22:20:00 97.8 F [facility] [place] BMI Calculated 2018-09-06 21:43:00 [facility] [place] Height 2018-09-06 21:43:00 193.04 cm [facility] [place] Weight 2018-09-06 21:43:00 [facility] [place] Systolic (mm Hg) 2018-09-06 21:43:00 Bernabe rial [place] Diastolic (mm Hg) 2018-09-06 21:43:00 Mem orial [place] Heart Rate 2018-09-06 21:43:00 [facility] [place] Temperature Oral (F) 2018-09-06 21:43:00 98.0 F [facility] [place] Respitory Rate 2018-09-06 21:43:00 Mem[facility] [place] BMI Calculated 2018-08-28 20:54:00 [facility] [place] Weight 2018-08-28 20:54:00 [facility] [place] Height 2018-08-28 20:54:00 193.04 cm [facility] [place] Temperature Oral (F) 2018-08-28 20:54:00 98.3 F [facility] [place] Systolic (mm Hg) 2018-08-28 20:54:00 Bernabe rial [place] Diastolic (mm Hg) 2018-08-28 20:54:00 Mem orial [place] Respitory Rate 2018-08-28 20:54:00 [facility] [place] Heart Rate 2018-08-28 20:54:00 [facility] [place] Systolic (mm Hg) 2018-07-19 18:30:00 Bernabe rial [place] Diastolic (mm Hg) 2018-07-19 18:30:00 Mem orial [place] Respitory Rate 2018-07-19 18:30:00 Mem[facility] [place] Systolic (mm Hg) 2018-07-19 18:15:00 Bernabe rial [place] Diastolic (mm Hg) 2018-07-19 18:15:00 Mem orial [place] Respitory Rate 2018-07-19 18:15:00 [facility] [place] Respitory Rate 2018-07-19 18:00:00 [facility] [place] Systolic (mm Hg) 2018-07-19 18:00:00 Bernabe rial [place] Diastolic (mm Hg) 2018-07-19 18:00:00 Mem o[facility] [place] Height 2018-07-19 15:55:00 195.58 cm [facility] [place] Weight 2018-07-19 15:55:00 [facility] [place] BMI Calculated 2018-07-19 15:55:00 Mem[facility] [place] Systolic (mm Hg) 2018-06-26 19:37:00 Bernabe rial [place] Diastolic (mm Hg) 2018-06-26 19:37:00 Mem o[facility] [place] Heart Rate 2018-06-26 19:37:00 [facility] [place] BMI Calculated 2018-06-26 19:37:00 Mem[facility] [place] Respitory Rate 2018-06-26 19:37:00 [facility] [place] Weight 2018-06-26 19:37:00 [facility] [place] Height 2018-06-26 19:37:00 195.58 cm [facility] [place] Respitory Rate 2017-12-22 03:30:00 Mem[facility] [place] Systolic (mm Hg) 2017-12-22 03:30:00 Bernabe rial [place] Diastolic (mm Hg) 2017-12-22 03:30:00 Mem orial [place] Respitory Rate 2017-12-22 03:00:00 Mem[facility] [place] Systolic (mm Hg) 2017-12-22 03:00:00 Bernabe rial [place] Diastolic (mm Hg) 2017-12-22 03:00:00 Mem o[facility] [place] Systolic (mm Hg) 2017-12-22 02:30:00 Bernabe rial [place] Diastolic (mm Hg) 2017-12-22 02:30:00 Mem [facility] [place] Respitory Rate 2017-12-22 02:30:00 [facility] [place] Temperature Oral (F) 2017 14:30:00 97.8 F [facility] [place] Weight 2017-12-18 16:45:00 [facility] [place] BMI Calculated 2017-12-18 16:45:00 [facility] [place] Height 2017-12-18 16:45:00 198.12 cm [facility] [place] Respitory Rate 2017-11-21 17:06:00 [facility] [place] Heart Rate 2017-11-21 17:06:00 [facility] [place] Systolic (mm Hg) 2017-11-21 17:06:00 [facility] [place] Diastolic (mm Hg) 2017-11-21 17:06:00 [facility] [place] Temperature Oral (F) 2017-11-21 13:32:00 99.6 F [facility] [place] Heart Rate 2017-11-21 13:32:00 [facility] [place] Systolic (mm Hg) 2017-11-21 13:32:00 [facility] [place] Diastolic (mm Hg) 2017-11-21 13:32:00 [facility] [place] Respitory Rate 2017-11-21 13:32:00 [facility] [place] Systolic (mm Hg) 2017-11-21 08:53:00 [facility] [place] Diastolic (mm Hg) 2017-11-21 08:53:00 [facility] [place] Respitory Rate 2017-11-21 08:53:00 [facility] [place] Heart Rate 2017-11-21 08:53:00 [facility] Temperature Oral (F) 2017-11-21 08:53:00 98.6 F [facility] Temperature Oral (F) 2017-11-21 05:19:00 98.6 F [facility] Weight 2017-11-16 23:40:00 [facility] BMI Calculated 2017-11-16 23:40:00 [facility] [place] Height 2017-11-16 23:40:00 195.58 cm [facility] BMI Calculated 2017-11-16 20:33:00 [facility] Height 2017-11-16 20:33:00 193.04 cm [facility] Weight 2017-11-16 20:33:00 [facility] Temperature Oral (F) 2017-11-16 20:33:00 97.9 F [facility] Heart Rate 2017-11-16 20:33:00 [facility] Respitory Rate 2017-11-16 20:33:00 [facility] Systolic (mm Hg) 2017-11-16 20:33:00 [facility] [place] Diastolic (mm Hg) 2017-11-16 20:33:00 [facility] [place] BMI Calculated 2017-10-24 14:11:00 [facility] Respitory Rate 2017-10-24 14:11:00 [facility] [place] Heart Rate 2017-10-24 14:11:00 [facility] Weight 2017-10-24 14:11:00 [facility] Height 2017-10-24 14:11:00 196 cm [facility] Systolic (mm Hg) 2017-10-24 14:11:00 [facility] [place] Diastolic (mm Hg) 2017-10-24 14:11:00 [facility] [place] Temperature Oral (F) 2016-11-17 19:16:00 98.6 F [facility] Heart Rate 2016-11-17 19:16:00 [facility] Systolic (mm Hg) 2016-11-17 19:16:00 [facility] [place] Diastolic (mm Hg) 2016-11-17 19:16:00 [facility] [place] Height 2016-11-17 19:16:00 195.58 cm [facility] Weight 2016-11-17 19:16:00 [facility] BMI Calculated 2016-11-17 19:16:00 [facility] BMI Calculated 2016-10-25 13:43:00 [facility] Weight 2016-10-25 13:43:00 [facility] Height 2016-10-25 13:43:00 196 cm [facility] Systolic (mm Hg) 2016-10-25 13:43:00 [facility] Diastolic (mm Hg) 2016-10-25 13:43:00 [facility] Respitory Rate 2016-10-25 13:43:00 [facility] [place] Heart Rate 2016-10-25 13:43:00 [facility] Systolic (mm Hg) 2016-05-17 19:15:00 [facility] [place] Diastolic (mm Hg) 2016-05-17 19:15:00 [facility] Respitory Rate 2016-05-17 19:15:00 [facility] Respitory Rate 2016-05-17 19:00:00 [facility] [place] Systolic (mm Hg) 2016-05-17 19:00:00 [facility] Diastolic (mm Hg) 2016-05-17 19:00:00 [facility] Systolic (mm Hg) 2016-05-17 18:45:00 [facility] [place] Diastolic (mm Hg) 2016-05-17 18:45:00 [facility] [place] Respitory Rate 2016-05-17 18:45:00 [facility] Temperature Oral (F) 2016-05-17 12:15:00 97.8 F [facility] BMI Calculated 2016-05-12 19:49:00 [facility] Weight 2016-05-12 19:49:00 [facility] Height 2016-05-12 19:49:00 167.64 cm [facility] Systolic (mm Hg) 2015-10-20 16:45:00 [facility] [place] Diastolic (mm Hg) 2015-10-20 16:45:00 [facility] Respitory Rate 2015-10-20 16:45:00 [facility] Respitory Rate 2015-10-20 16:30:00 [facility] Systolic (mm Hg) 2015-10-20 16:30:00 [facility] [place] Diastolic (mm Hg) 2015-10-20 16:30:00 [facility] [place] Respitory Rate 2015-10-20 16:15:00 [facility] [place] Systolic (mm Hg) 2015-10-20 16:15:00 [facility] [place] Diastolic (mm Hg) 2015-10-20 16:15:00 [facility] Temperature Oral (F) 2015-10-20 15:06:00 98.7 F [facility] Temperature Oral (F) 2015-10-20 13:30:00 98.6 F [facility] Height 2015-10-19 14:19:00 198.12 cm [facility] Weight 2015-10-19 14:19:00 [facility] BMI Calculated 2015-10-19 14:19:00 [facility] Procedures Procedure Date / Time Performing Clinician Source Performed AV - Creation of 2018-01-05 05:00:00 [facility] Abdelrahman rmann arteriovenous fistula<sup>1</sup> AV - Creation of 2016-02-15 05:00:00 [facility] He rmann arteriovenous fistula [facility] Insertion of tunneled [facility] H ermann dialysis catheter using fluoroscopic guidance<sup>2</sup> Catheterization of right [facility] [place] [facility] Encounters Start End Encounter Admission Attending Care Care Encounter Source Date/Time Date/Time Type Type Clinicians Facility Department ID 2020-02-05 Outpatient [facility] CAR [id number] [facility] 15:03:55 2019-09-19 Outpatient [facility] PUL [id number] [facility] 13:33:11 2019-02-13 Outpatient [facility] CAR [id number] [facility] 15:11:59 2019-01-07 Outpatient [facility] PUL [id number] [facility] 15:14:45 2018-11-26 Inpatient [facility] MHHH [id number] MHH H 15:57:49 2018-11-26 Outpatient [facility] CAR [id number] [facility] 15:57:24 2020-11-04 2020-11-04 Outpatient [facility] MHH [id number] MHH 11:00:00 11:00:00 2020-10-15 2020-10-16 Outpatient Sam [facility] [id number] 11:21:00 20:23:00 Jacqueline Maria Fernanda Sam 2020-10-15 2020-10-16 Outpatient Sam [facility] [id number] 11:21:00 20:23:00 Jacqueline Maria Fernanda Sam 2020-10-15 2020-10-[address] [id number] 11:21:00 07:37:00 2020-09-17 2020-09-17 Outpatient [facility] [id number] [place] 00:00:00 00:00:[address] 2020-08-27 2020-08-27 Outpatient YOEL [facility] [id number] [place] 00:00:00 00:00:00 JOSE [address] 2020-07-23 2020-07-23 Outpatient YOEL [facility] [id number] [place] 00:00:00 00:00:00 JOSE [address] 2020-06-30 2020-07-12 Inpatient ANABELLGLJAKI [facility] 012 [id number] [place] 00:00:00 00:00:00 JASON [address] 2020-06-26 2020-06-26 Outpatient YOEL [facility] [id number] [place] 00:00:00 00:00:00 JOSE [address] 2020-06-26 2020-06-26 Outpatient WOJCIECHOWS [facility] [id number] [place] 00:00:00 00:00:00 KELLY, 953 [facility] HELEN 2020-06-24 2020-06-24 Outpatient YOEL [facility] [id number] [place] 00:00:00 00:00:00 JOSE Bridges [facility] i 2020-05-21 2020-06-19 [facility] [id number] 14:05:00 23:59:00 Rylee Roberts 2020-05-21 2020-05-21 Outpatient [facility] M[facility]H [id number] [facility] 14:05:00 14:05:00 2020-04-07 2020-05-06 Outpatient Dimas [facility] [id number] 07:35:00 23:59:00 Jarod 05 2020-04-07 2020-04-07 Outpatient [facility]H [id number] [facility] 07:35:00 07:35:00 2020-02-06 2020-03-06 Outpatient Akligianti, [facility] [id number] 16:02:00 23:59:00 Jazzmine 04 2020-03-03 2020-03-03 Outpatient Akligianti, [facility] [id number] 08:35:00 23:59:00 Jazzmine 03 2020-02-28 2020-02-29 Outpatient MH91 MH91 [id number] 10:40:23 23:59:59 2020-02-28 2020-02-29 Outpatient MH91 MH91 [id number] 10:40:23 23:59:59 2020-02-07 2020-02-07 Outpatient Akligianti, MHSE [facility]SE [id number] 19:19:00 23:59:00 Jazzmine 29 2020-02-07 2020-02-07 Outpatient MHSE PUL [id number] MH 19:19:00 19:19:00 [facility] 2020-01-28 2020-01-28 Outpatient Akligianti, [facility] [id number] 13:30:00 23:59:00 Jazzmine 27 2020-01-28 2020-01-28 Outpatient [facility] PUL [id number] [facility] 13:30:00 13:30:00 2020-01-23 2020-01-23 Outpatient YOEL [facility] [id number] [facility] [place] 00:00:00 00:00:00 JOSE [address] 2020-01-21 2020-01-21 Outpatient Dimas [facility] [id number] 08:02:00 13:30:00 Jarod 26 2020-01-21 2020-01-21 Outpatient MH CAR [id number] [facility]H 08:02:00 08:02:00 2019-12-31 2020-01-02 Inpatient OLIVIA, [facility] [id number] [place] 00:00:00 00:00:00 PARDEEP [address] 2019-12-24 2019-12-24 Outpatient YOEL, [facility] [id number] [place] 00:00:00 00:00:00 JOSE [address] 2019-12-24 2019-12-24 Outpatient YOEL, [facility] [id number] [place] 00:00:00 00:00:00 JOSE [address] 2019-12-24 2019-12-24 Outpatient YOEL, [facility] [id number] [place] 00:00:00 00:00:00 JOSE [address] 2019-12-19 2019-12-19 Outpatient YOEL, [facility] [id number] [place] 00:00:00 00:00:00 JOSE [address] 2019-10-17 2019-10-17 Outpatient Lorin, [facility] [id number] 08:41:00 23:59:00 Jazzmine 02 2019-09-19 2019-09-19 Out[facility] [id number] 13:19:00 23:59:00 Jarod 23 2019-09-19 2019-09-[address] [facility] CAR [id number] MH 13:19:00 13:19:00 2019-04-30 2019-04-30 Outpatient Nba [facility] [id number] 09:57:00 23:59:00 Leonardo Dexter 2019-04-30 2019-04-[address] [facility] CAR [id number] MHH 09:57:00 09:57:00 2019-04-02 2019-04-02 Outpatient Nba [facility] [id number] 08:29:00 16:40:00 Leonardo Maria Eugenia Dexter 2019-04-02 2019-04-02 Outpatient [facility] CAR [id number] [facility] 08:29:00 08:29:00 2019-02-14 2019-03-15 Outpatient Akkanti, [facility] [id number] 13:21:00 23:59:00 Jazzmine 03 2019-02-14 2019-02-14 Outpatient [facility] CAR [id number] [facility] 13:21:00 13:21:00 2018-10-08 2018-10-08 [facility] [id number] 16:13:00 19:00:00 Jarod 16 2018-09-12 2018-09-12 Outpatient Akkanti, MHSE MHSE [id number] 19:35:00 23:59:00 Jazzmine 14 2018-09-12 2018-09-12 Outpatient Akkanti, MHSE [facility]SE [id number] 19:35:00 23:59:00 Jazzmine 14 2018-09-06 2018-09-06 Outpatient Cochran, [facility] [id number] 15:15:00 23:59:00 Jarod 15 2018-08-28 2018-08-28 Outpatient Akkanti, [facility] [id number] 14:44:00 23:59:00 Jazzmine 12 2018-07-19 2018-07-19 Outpatient Akkanti, [facility] [id number] 09:11:00 13:00:00 Jazzmine 13 2018-07-19 2018-07-19 Outpatient Akkanti, [id number] 11:40:00 11:40:00 Jazzmine [id number] 5.30 2018-07-03 2018-07-03 Outpatient Akkanti, [facility] [id number] 07:48:00 23:59:00 Jazzmine 11 2018-06-26 2018-06-26 Outpatient Akkanti, [facility] [id number] 12:13:00 23:59:00 Jazzmine 10 2018-06-18 2018-06-19 Outpatient MH91 MH91 [id number] 10:18:00 23:59:59 00 2017 2017 Outpatient Pérez, [facility] [id number] 08:23:00 22:45:00 Dago Dmitry Velez 2017-11-29 2017-11-29 Outpatient De [facility] [id number] 15:00:00 23:59:00 Golmannyne, 02 Shalini Odalis 2017-10-24 2017-11-22 Outpatient De [facility] [id number] 07:34:00 23:59:00 Golconsuelo, 02 Shalini Odalis 2017-11-20 2017-11-21 Outpatient Chey, [facility] [id number] 13:09:00 16:00:00 Nayeli Luda Sheltonis 2017-11-16 2017-11-16 Outpatient Cochran, [facility] [id number] 14:46:00 23:59:00 Jarod 2017-09-27 2017-09-27 Outpatient De [facility] [id number] 15:00:00 23:59:00 Golovine, 39 Shalini Odalis 2017-09-22 2017-09-22 Outpatient De [facility] [id number] 15:00:00 23:59:00 Golovine, 44 Shalini Odalis 2017-09-20 2017-09-20 Outpatient Kev, [facility] [id number] 15:00:00 23:59:00 Emelia Rasheedh 2017-03-22 2017-03-22 Outpatient De [facility] [id number] 15:00:00 23:59:00 Golovine, 15 Shalini Odalis 2016-10-25 2016-11-23 Outpatient De [facility] [id number] 07:32:00 23:59:00 Golovine, 01 Shalini Odalis 2016-11-17 2016-11-17 Outpatient Dimas, [facility] [id number] 14:00:00 23:59:00 Jarod 2016-11-17 2016-11-17 Outpatient De [facility] M[facility] [id number] 10:36:00 23:59:00 Golovine, 00 Shalini Jacobo 2016-05-17 2016-05-17 Outpatient [facility] [id number] 06:53:00 14:40:00 Messi T 02 2015-10-20 2015-10-20 Outpatient Nain [facility] [id number] 06:08:00 11:19:00 Messi T 00 Results Test Description Test Time Test Comments Results Result Comments Source CHEM PANEL 2020-10-16 2.2 [facility] 11:08:00 CHEM PANEL 2020-10-16 3.5 [facility] 11:08:00 CHEM PANEL 2020-10-16 79 [facility] 11:08:00 CHEM PANEL 2020-10-16 [facility] 11:08:00 CHEM PANEL 2020-10-16 9.12 [facility] 11:08:00 CHEM PANEL 2020-10-16 138 [facility] 11:08:00 CHEM PANEL 2020-10-16 3.7 [facility] 11:08:00 CHEM PANEL 2020-10-16 103 [facility] nn 11:08:00 CHEM PANEL 2020-10-16 27 [facility] 11:08:00 CHEM PANEL 2020-10-16 11.7 [facility] 11:08:00 CHEM PANEL 2020-10-16 9.2 [facility] 11:08:00 CHEM PANEL 2020-10-16 11:08:00 Test Item Value Reference Range Interpretation Comme nts B/C Ratio (test code = B/C Ratio) 3 1 6-25 [facility] [id number] 11:08:006.7[facility]annCHE[facility] PANEL 2020-10-16 11:08:002.7[facility]annCHE[facility] WLNXY6329-59-79 11:08:004.0[facility]CHE[facility] VQOPG7069-16-99 11:08:00 Test Item Value Reference Range Interpretation Comments A/G Ratio (test code = A/G Ratio) 0.7 1 0.7-1.6 [facility] [id number] 11:08:00<6[facility]annCHEM PANEL 2020-10-16 11:08:0013[facility]annCHE[facility] RXSLF3190-72-35 11:08:0056[facility]annCHE[facility] FUPCD2209-66-34 11:08:000.3[facility]annCHE[facility] NHDVP1655-03-98 11:08:008[facility] ZfjhsyqWHQDGJCKXS8381-99-81 11:08:005.3[facility] AKDQMTXDVT0007-57-92 11:08:002.70[facility] XjilsfeYCCSQXOQHW7788-47-60 11:08:00 7.8[facility] KaepjkaCHIFCADUKB0077-80-36 11:08:0023.1[facility] HermannHEMATOLOGY 2020-10-16 11:08:0085.5[facility] VvxbgqfSSUSBRREGB8517-82-28 11:08:00 Test Item Value Reference Range Interpretation Comments MCH (test code = MCH) 29.1 pg 27.0-31.0 [facility] JvibaspNQKYBOLXSJ9381-65-32 11:08:0034.0[facility]annHEMATOLOGY 2020-10-16 11:08:0015.1[facility] UzxnlgdLMSXWZTFGS7192-82-29 11:08:79129Gdgwhuan VpllbnnNBFYELMDOP8071-64-00 11:08:007.7[facility] PpsjmfuHGVYUQBZGI0159-43-80 11:08:0063.1[facility] WkuiudkCTDBOSAPNA7375-98-13 11:08:0017.2[facility] FODCZQTCOC4986-35-30 11:08:0012.0[facility] BenmxfhTXESSVNCHJ7191-33-46 11:08:00 7.2[facility] IrcioemSSKQVXIPEO4793-08-79 11:08:000.5[facility]annHEMATOLOGY 2020-10-16 11:08:003.4[facility] HmdxiemRONLEXUPHE1628-51-81 11:08:000.9[facility] LgvkbvmQLFPZEOEFG6684-50-93 11:08:000.6[facility] ZkrdngwGCXYJWQJAI5306-36-25 11:08:000.4[facility] B[facility] MGVTVZO0124-57-99 09:46:00Negative (10/15/20 3:46 AM)[facility]annCHE[facility] VOSUJ2585-87-51 09:46:0073[facility] CHEM YBYXA2295-91-67 09:46:0019[facility]annCHEM IJPBP8081-21-03 09:46:006.88 [facility] GYYGF2412-69-54 09:46:41156Knrzelwl HermannCHEM PANEL 2020-10-15 09:46:003.7[facility]annCHEM JTAQM9298-92-86 09:46:42970Gkvesypo HermannCHEM UQFPQ9358-48-82 09:46:0028[facility]annCHEM EBYZY6952-14-29 09:46:0010.7[facility]annCHE[facility] GIJFW3908-19-85 09:46:008.6[facility]annCHE[facility] NXZCZ7861-55-52 09:46:0011[facility]annCHEM BOJBI9745-67-57 09:46:002.2 [facility]annCHE[facility] JHWZR0337-82-58 09:46:003.5[facility] HermannHEMATOLOGY 2020-10-15 09:46:004.8[facility] KqkymmhDHSSJODIYU3152-02-15 09:46:002.88[facility] LhcvscaETOEXIZBGG8320-86-99 09:46:008.2[facility] OpblrchINCFCLLOAV3297-17-41 09:46:0024.6[facility] StaansqGGYAJYVBGC4177-62-70 09:46:0085.3[facility] OLTGNOALBJ8639-49-03 09:46:00 Test Item Value Reference Range Interpretation Comments MCH (test code = MCH) 28.6 pg 27.0-31.0 [facility] HpzqedgIUETKPAFQQ3987-44-81 09:46:0033.5[facility]annHEMATOLOGY 2020-10-15 09:46:0014.7[facility] QzgbumrBVYUDSNLHC2885-38-57 09:46:93060Dsdqlndz FnoitdnXOLVKTUQTS7992-21-21 09:46:007.9[facility] GlwrsiwQKPZABCRTT7260-87-89 09:46:0063.3[facility] FymbidhFSUKQXFPEJ0625-80-10 09:46:0015.0[facility] LWEPVXPTIK9111-85-67 09:46:0013.4[facility] EiszbldSFOBKNZMUO1728-49-85 09:46:00 7.9[facility] KtcmgnfWYHYLXANGH2836-45-01 09:46:000.4[facility] HermannHEMATOLOGY 2020-10-15 09:46:003.0[facility] UsvkrcpLUWLSLGPRF6572-61-40 09:46:000.7[facility] ZwlozdgOVRSGDRALJ0812-19-60 09:46:000.6[facility] HxwcqzoPFETHIXDWL0285-46-49 09:46:000.4[facility] KnxcnqoMJJSWZYGXW5853-99-25 18:48:00Negative *NA*(10/14/20 12:48 PM)[facility]annCHE[facility] NXEGL5137-93-63 18:44:0091[facility]annCHEM NHBCA0773-01-45 18:44:0035[facility]annCHEM OVMBX9636-75-53 18:44:009.17 [facility]annCHE[facility] UQNTC4581-43-86 18:44:45022Wmoueamz HermannCHEM PANEL 2020-10-14 18:44:004.0[facility]annCHEM BLYJR6127-40-55 18:44:55538Sgsevjvl HermannCHEM IUAPR5437-97-17 18:44:0026[facility]annCHE[facility] YLDXQ6304-86-28 18:44:008.8[facility]annCHE[facility] XTAWM7962-80-27 18:44:0011.0[facility]annCHE[facility] TIPEN4561-45-89 18:44:008[facility]annCHE[facility] GLPVY4588-79-97 18:44:002.2 [facility] RVHRC7913-67-10 18:44:005.0[facility]annHEMATOLOGY 2020-10-14 18:44:007.6[facility] QctffvtQQRLYJOFME9978-23-58 18:44:0022.7[facility]annCHEM BCZAA9588-20-83 10:51:007.0[facility]annCHEM RUAWU0567-55-70 10:51:002.8[facility]annCHE[facility] AWJTW9991-64-85 10:51:0012[facility]annCHEM NEIJW4796-72-60 10:51:0016[facility]annCHEM ICFUK5595-37-99 10:51:0053 [facility]CHE[facility] UJHVV9900-18-17 10:51:000.6[facility]annCHEM PANEL 2020-10-14 10:51:00 Test Item Value Reference Range Interpretation Comments B/C Ratio (test code = B/C Ratio) 4 1 6-25 [facility] HWNKB7791-82-35 10:51:004.2[facility]annCHEM PANEL 2020-10-14 10:51:00 Test Item Value Reference Range Interpretation Comments A/G Ratio (test code = A/G Ratio) 0.7 1 0.7-1.6 [facility] OcvlxkxMIXBJWUINH6631-93-18 10:51:0068.7[facility] HermannHEMATOLOGY 2020-10-14 10:51:0015.3[facility] WtxkuogCGBHHNBFMQ0387-96-74 10:51:0010.7[facility] JbzjopbVRDYOGPWGO7112-17-41 10:51:004.8[facility] LadpklwPDEUPIQZGL5691-13-51 10:51:000.5[facility] FqsyaaaPFVSOQOAKY1973-67-77 10:51:003.1[facility] TBUZSSTYUI1623-21-73 10:51:000.7[facility] TknabuvFWAFCBUFLU7002-41-53 10:51:000.5 [facility] KzzgdthRMSOTLBZLX5513-65-07 10:51:000.2[facility] HermannHEMATOLOGY 2020-10-14 10:51:004.5[facility] FmmbdqqVROZJVGFZR2576-12-01 10:51:002.67[facility] LtcsegqBNRVNGZOHJ7137-60-21 10:51:0085.0[facility] FxfwparNNMIVQVJZG0519-74-73 10:51:00 Test Item Value Reference Range Interpretation Comments MCH (test code = MCH) 29.7 pg 27.0-31.0 [facility] MrvdegvBIUYXIJNNQ0016-87-13 10:51:0034.9[facility] HermannHEMATOLOGY 2020-10-14 10:51:0015.3[facility] DaqnegwDJCPXVNWCX9944-45-25 10:51:98533Nydzynyi FmlsfhcUAKONKZQIN3986-96-99 10:51:007.7[facility] HermannCHEM JOHVS5362-06-84 18:31:007.1[facility]annCHEM PFWBR6886-39-87 18:31:003.0[facility]annCHEM PVIBW8478-94-96 18:31:0011[facility] HermannCHEM WMIWR7633-10-19 18:31:0012 [facility]annCHE[facility] BYUBM0348-31-23 18:31:0052[facility] HermannCHEM PANEL 2020-10-13 18:31:000.8[facility] HermannCHEM EODMD4052-83-41 18:31:00 Test Item Value Reference Range Interpretation Comments B/C Ratio (test code = B/C Ratio) 4 1 6-25 [facility]CHE[facility] MNFKS9109-81-49 18:31:004.1[facility]annCHEM PANEL 2020-10-13 18:31:00 Test Item Value Reference Range Interpretation Comments A/G Ratio (test code = A/G Ratio) 0.7 1 0.7-1.6 [facility] GsenbopXGPDIPHSEZQS8095-13-92 13:14:004.1[facility]BL[facility] B[facility] ILNZCEI2418-73-68 18:25:00Negative (10/12/20 12:25 PM)[facility] HermannIMMUNOLOGY 2020-10-12 18:25:00Not Detected (10/12/20 12:25 PM)[facility] HermannANEMIA STUDY 2020-04-07 12:35:590745Kmkfdqui HermannANEMIA LXQNO5397-23-60 12:35:0054[facility] HermannANEMIA UOQXN4334-71-92 12:35:88552Thplnlnv HermannANEMIA KELBX8564-08-84 12:35:0032[facility] HermannCHEM AUBNX7893-23-26 12:35:0084[facility] HermannCHEM FYLJS1769-46-89 12:35:0036[facility]annCHEM STKSD7161-89-45 12:35:0010.70 [facility]annCHE[facility] ZBCUH5659-90-06 12:35:99481Kqffebrd HermannCHEM PANEL 2020-04-07 12:35:004.5[facility] HermannCHEM SHWWL2075-17-20 12:35:85949Quoepzji HermannCHEM BXZCT8724-14-64 12:35:0031[facility] HermannCHEM UDXQV6720-91-56 12:35:008.6[facility] HermannCHEM SEKDY3198-69-62 12:35:007.9[facility] HermannCHEM SRODS2402-67-48 12:35:003.8[facility] HermannCHEM HOHKG0234-10-73 12:35:0010 [facility]annCHEM HISDJ0103-10-61 12:35:0010[facility] HermannCHEM PANEL 2020-04-07 12:35:0093[facility] HermannCHEM YYBBC7457-45-36 12:35:000.6[facility] HermannCHEM HWALA3090-39-79 12:35:0013.5[facility] HermannCHEM KTXFK9547-66-68 12:35:00 Test Item Value Reference Range Interpretation Comments B/C Ratio (test code = B/C Ratio) 3 1 6-25 [facility]annCHE[facility] XBQLO0075-31-76 12:35:004.1[facility] HermannCHEM PANEL 2020-04-07 12:35:00 Test Item Value Reference Range Interpretation Comments A/G Ratio (test code = A/G Ratio) 0.9 1 0.7-1.6 [facility]annCHEM DEVZO9962-84-60 12:35:007[facility] HermannCHEM PANEL 2020-04-07 12:35:002.3[facility]annCHEM RGSDW8447-41-77 12:35:004.4[facility] HermannCHEM CTYAV2616-29-35 12:35:004.4[facility]annCHEM FNNBB4986-64-17 12:35:0016[facility]annCHEM IJBGU9955-84-94 12:35:0010.80[facility]annCHEM YBVPW8680-19-54 12:35:007[facility] FipvxpoCNYNJKGYYK2345-58-20 12:35:00 Test Item Value Reference Range Interpretation Comments PTT (test code = PTT) 32.3 s 22.9-35.8 [facility] ZimrpvmKGYUIOMKEW4716-89-45 12:35:00 Test Item Value Reference Range Interpretation Comments PT (test code = PT) 15.2 s 12.0-14.7 [facility] IggpdcfRKFFHBUVLQ6076-40-40 12:35:00 Test Item Value Reference Range Interpretation Comments INR (test code = INR) 1.19 1 0.85-1.17 [facility] ZzcifrgQBINZPSALA0589-26-26 12:35:004.1[facility]annHEMATOLOGY 2020-04-07 12:35:003.68[facility] IlyzolxKRUFKCTZYA5615-58-73 12:35:0010.7[facility] KehpidtQORIQIOLJT2114-19-10 12:35:0032.0[facility] UzcwwiiGMWGBZHZRL9746-86-48 12:35:0087.0[facility] IungcctWFDMIBTIKL7577-41-72 12:35:00 Test Item Value Reference Range Interpretation Comments MCH (test code = MCH) 29.0 pg 27.0-31.0 [facility] OftzlnrLUKMZOUVWD4239-62-35 12:35:0033.3[facility]annHEMATOLOGY 2020-04-07 12:35:0016.0[facility] KlysdmxYSTNTOFYJU4453-61-13 12:35:93238Tyoqamda EbqnkkdWXSYOTOWNT0122-14-98 12:35:007.9[facility] CbajxkmYCXBGBIVJG0829-84-20 12:35:0084[facility] QdmdjjyPMDAMNPUCR0122-37-02 12:35:00 Test Item Value Reference Range Interpretation Comments dRVV Ratio (test code = dRVV Ratio) 1.09 1 [facility] DqvrxdsNFNHYXLBYV3756-18-87 12:35:00Negative (04/07/20 7:35 AM)[facility] PbxnbziJGQIFFNPIZ3260-34-35 12:35:0083[facility] HxfeqpqISVLRVIIOA6200-03-69 12:35:0087[facility] AiavcweKDSJZCNVHM0239-12-17 12:35:0055.0[facility] HHVEGVZTGM8438-34-22 12:35:0025.1[facility] KhrgvbrNDOQMYOWRS8488-59-25 12:35:00 11.4[facility] XxkrbgqWEQIXYNWRN7877-67-12 12:35:007.6[facility]annHEMATOLOGY 2020-04-07 12:35:000.9[facility] KagocezYITFKRLHRT6846-04-08 12:35:002.3[facility] KbgdzxrUIYWOOUIZP2630-48-40 12:35:001.0[facility] OtooxscBBHDEJZHXN5823-23-53 12:35:000.5[facility] XxkipgeSYEHPODWXK5337-47-26 12:35:000.3[facility] HRSCOQVNNZ5877-76-34 12:35:006.80[facility] IkodkirFGIFEWNTRZ2841-85-61 12:35:007 [facility] PwppuqnNQCKBLNEXL3983-34-84 12:35:001.8[facility]annIMMUNOLOGY 2020-04-07 12:35:00<1.6[facility] VczutqvCMCDOCJSFA5584-05-97 12:35:00<0.2 [facility] QaxxswdNNXPCNHNGX6237-33-06 12:35:0033.7[facility]annIMMUNOLOGY 2020-04-07 12:35:00<0.60[facility] KwarqbhGWHRRCXKBN8068-12-37 12:35:00 >750.00[facility] PgqquhlELQCJNCTQM8006-02-55 12:35:00Negative *NA*(04/07/20 7:35 AM)[facility] FhvntmxJVALQBVTAF4974-05-22 12:35:23331W[place]hjnat [place] ICYMWPKRKT1381-73-66 12:35:001.55[facility] KybmsikNNFPDAOSCO4400-90-26 12:35:00 <0.90[facility] ZlqyecwYAAOFGTACS6089-46-69 12:35:00 Test Item Value Reference Range Interpretation Comments T-Spot Pnl A Neg Ctrl Corrected (test 0 1 code = T-Spot Pnl A Neg Ctrl Corrected) [facility] WwmlmptBZFGUWOJFS2762-97-79 12:35:00 Test Item Value Reference Range Interpretation Comments T-Spot Pnl B Neg Ctrl Corrected (test 0 1 code = T-Spot Pnl B Neg Ctrl Corrected) [facility] NtcbbcuNGIOSAPMEL7027-55-42 12:35:00Non-Reactive *NA*(04/07/20 7:35 AM) [facility] MdjrbirMLAUJUNGWO5142-65-59 12:35:00>4000.00[facility] TWLHLFMSBR2394-39-41 12:35:10818.00[facility] KjwzvjrMFXTKKIBCZ4975-38-33 12:35:00 67.4[facility] KpohabqCWDBAKMNEZ2520-93-77 12:35:09150.00[facility] HermannLIPIDS 2020-04-07 12:35:0075[facility] FdthnaaREXUYM9303-95-27 12:35:56968Rghkzzsp HpqxdqhJGOZCB6154-49-10 12:35:0054[facility] PqxgrrzXWQQAB8435-53-81 12:35:00 Test Item Value Reference Range Interpretation Comments CHD Risk (test code = CHD Risk) 3.02 1 4.00-7.30 [facility] QhttjpmHARYAD9163-25-30 12:35:0094[facility] RxhwosyXQFWXF4710-93-85 12:35:00 Test Item Value Reference Range Interpretation Comments VLDL (test code = VLDL) 15 1 [facility]annPARATHYROID IXLIPWI5558-79-09 12:35:09028.0[facility] SPECIAL WJORNBSQW6394-42-03 12:35:00<2[facility] CHEMISTRY 2020-04-07 12:35:00<2[facility]annSPECIAL UKTHHZFNO4674-75-33 12:35:004.7 [facility] CFWDQ5643-04-50 12:35:00Light Yellow *NA*(04/07/20 7:35 AM)[facility] HHFMA4284-96-38 12:35:00Clear (04/07/20 7:35 AM) [facility] EAZGQ9309-83-71 12:35:00 Test Item Value Reference Range Interpretation Comments UA Spec Grav (test code = UA Spec 1.006 1 Grav) [facility] OYILZ9780-11-69 12:35:00Negative *NA*(04/07/20 7:35 AM) [facility] RDWPE6602-62-37 12:35:00Negative (04/07/20 7:35 AM) [facility] QCURP5427-88-43 12:35:00<1.0[facility] FWGYV4920-89-57 12:35:00Negative (04/07/20 7:35 AM)[facility] ZNEUQ6219-20-49 12:35:00Negative (04/07/20 7:35 AM)[facility] GOTIF0083-88-72 12:35:007[facility] OOXFP2245-52-76 12:35:002 [facility] RORQP8725-32-06 12:35:008[facility] HGGOC5419-13-35 12:35:00>=9.0 *ABN*(04/07/20 7:35 AM)[facility] DUMY2115-62-96 12:35:0032.60[facility] WZEP9978-52-13 12:35:77444.0 [facility] CPTN4321-55-42 12:35:391697.4[facility] CHEM 2020-04-07 12:35:0032.60[facility] RKWV9912-46-64 12:35:60383.0 [facility] IUQE7715-69-53 12:35:00 Test Item Value Reference Range Interpretation Comments U Prot/Creat (test code = U 5.71 1 Prot/Creat) [facility] CBTK7940-03-24 12:35:0032.60[facility] CHEM 2020-04-07 12:35:46360.0[facility] NXSE0784-46-23 12:35:048481.4 [facility]annVIRAL - VLYMTYPQ0089-86-00 12:35:00<1.30[facility]annVIRAL - FWYFHKLH4527-16-33 12:35:00<0.90[facility] QnnridnEESAWQKXJX4603-36-44 20:00:00Not Detected (02/28/20 3:00 PM)[facility]annCHEM UQEVB2614-12-52 13:22:0095[facility]annCHEM JCYQO4660-09-84 13:22:0033[facility]annCHEM KOYTE6522-42-23 13:22:0010.38[facility]annCHEM CRKZS9370-55-43 13:22:16954 [facility] ZCSXL4511-90-67 13:22:004.3[facility]annCHEM PANEL 2020-01-21 13:22:0097[facility]annCHEM UGIGO3087-57-66 13:22:0035[facility]annCHEM RFXQQ8461-31-00 13:22:007.9[facility]annCHEM FMVLU9063-61-68 13:22:0014.3[facility]annCHEM HGMSM9990-29-19 13:22:007[facility]annCHE[facility] ZDIJM7689-19-15 13:22:002.5[facility] JmjxlizLHDACBYHZB3444-36-14 13:22:003.3 [facility] WqtonufGGANHOOVUF3413-23-90 13:22:003.71[facility]annHEMATOLOGY 2020-01-21 13:22:0011.5[facility] JdxhjgiRCOZLPVWCB0583-01-06 13:22:0033.7[facility] ZogrtwvVLFDLDGUCP8683-07-06 13:22:0091.0[facility] PhxdqmgBITYZYMVMC1958-75-21 13:22:00 Test Item Value Reference Range Interpretation Comments MCH (test code = MCH) 30.9 pg 27.0-31.0 [facility] DstzjrlCKROLEVOBJ1956-39-46 13:22:0034.0[facility]annHEMATOLOGY 2020-01-21 13:22:0017.4[facility] LsmjzutHXDYVVBOIP0794-30-82 13:22:47028Dqxoovmr WswfpebQFGCFXROGB9173-22-78 13:22:007.7[facility] JtxayysGBROZDXIHU1005-31-85 13:22:00 Test Item Value Reference Range Interpretation Comments PT (test code = PT) 15.4 s 12.0-14.7 [facility] CtwfbmrUBEEUFQVVN4171-11-93 13:22:00 Test Item Value Reference Range Interpretation Comments INR (test code = INR) 1.21 1 0.85-1.17 [facility] NiembecTIAZBDZFKG8540-31-96 13:22:00 Test Item Value Reference Range Interpretation Comments PTT (test code = PTT) 36.0 s 22.9-35.8 [facility] VnpugrwBOVELPAMPL5090-27-48 13:22:0047.7[facility]annHEMATOLOGY 2020-01-21 13:22:0029.7[facility] CtzktgyMNAGWDVCOE0845-85-41 13:22:0012.4[facility] FqmlncdVUDREFODDP6287-55-33 13:22:008.5[facility] UbsyhqiCGMGUIVHUM2452-41-18 13:22:001.7[facility] XkzlojbUWCTCTJGBD8673-77-82 13:22:001.6[facility] LTVCFAXUCI4992-15-68 13:22:001.0[facility] EmvgkulKKLFBHGOFP3571-13-92 13:22:000.4 [facility] MxsstouAAETPKHTLI0212-07-45 13:22:000.3[facility]annHEMATOLOGY 2020-01-21 13:22:000.1[facility] WhqdnwvJSSIGEWJNL4287-83-99 20:20:00Not Detected (01/17/20 3:20 PM)[facility] ICKYNIG9772-32-83 13:54:00Negative (04/02/19 8:54 AM)[facility]annCHEM BGGPP9540-02-62 13:54:0080[facility] CHEM HLMWC0880-22-01 13:54:0040[facility]annCHEM JFTJC6651-32-19 13:54:009.04 [facility]annCHE[facility] JQTPH0087-91-25 13:54:57922Wgyihduk HermannCHEM PANEL 2019-04-02 13:54:004.1[facility]annCHEM XLGBE7088-18-35 13:54:99746Lsvjguei HermannCHEM VFDYP1376-73-13 13:54:0032[facility]annCHEM GDNMC2581-13-93 13:54:009.1[facility]annCHEM VAODJ4636-15-50 13:54:008[facility]annCHEM FUPMW7964-04-59 13:54:0013.1[facility] YwqrfzhAXWCVQFGQC2166-47-23 13:54:002.2 [facility] KzgajefYEDPQWDFER9238-81-52 13:54:003.79[facility]annHEMATOLOGY 2019-04-02 13:54:0011.5[facility] JjadzctFYSVWCQCXI7288-60-05 13:54:0034.3[facility] VyivnedFXAZOWRDVP3545-29-47 13:54:0090.5[facility] SsywdrmMQMSADLVTU9510-67-91 13:54:00 Test Item Value Reference Range Interpretation Comments MCH (test code = MCH) 30.4 pg 27.0-31.0 [facility] PwdhtxwYSKBYEXNLE3506-38-70 13:54:0033.6[facility] HermannHEMATOLOGY 2019-04-02 13:54:0016.2[facility] FojscohVTZWTUWBBP4148-75-79 13:54:63442Yvovenlr GmwyqvyHAJBZTRSGU1211-24-13 13:54:008.3[facility] DnsbsdeAPGVERKECB7831-37-92 13:54:00 Test Item Value Reference Range Interpretation Comments PT (test code = PT) 16.2 s 12.0-14.7 [facility] RxfmwggLKHXHLBWGF3915-47-23 13:54:00 Test Item Value Reference Range Interpretation Comments INR (test code = INR) 1.33 1 0.85-1.17 [facility] ZfwgdmkEXBIXNYOYB5875-81-13 13:54:00 Test Item Value Reference Range Interpretation Comments PTT (test code = PTT) 40.1 s 22.9-35.8 [facility] GrtlbqiUNIIGJZLDI0623-39-65 13:54:0046.4[facility]annHEMATOLOGY 2019-04-02 13:54:0031.0[facility] DkfgixcXWZFGJAGRQ7308-79-37 13:54:0013.8[facility] UxcrfqgQQNNHZWYBJ5431-36-52 13:54:007.8[facility] FxdwbrkYVIXZOTOPX4907-56-80 13:54:001.0[facility] JokarjqZOTMSVZFYX3457-40-46 13:54:001.0[facility] BSRYHAQAHJ1317-30-90 13:54:000.7[facility] ItyesblHRGOFTITVC3745-17-25 13:54:000.3 [facility] IjdarryADSUFSVRPK0148-35-91 13:54:000.2[facility] HermannCHEM PANEL 2018-10-08 22:30:0012[facility] HermannCHEM IMIKM4449-32-28 22:30:0089[facility]annCHEM JHGHQ7592-28-02 22:30:009.2[facility] HermannCHEM PIUPO1155-51-76 22:30:0034[facility]annCHEM XBNLD9690-33-57 22:30:0098[facility]annCHEM KWHHL2060-98-76 22:30:006.74[facility]annCHEM GZJFE1903-21-64 22:30:0023 [facility]annCHEM RKFDP5824-23-90 22:30:003.5[facility] HermannCHEM PANEL 2018-10-08 22:30:80227Bdrxkswe HermannCHEM WJQVI2517-27-96 22:30:0012.5[facility] HermannCHEM EOSFM0075-92-65 22:30:002.1[facility] BjvwfqnNASICQBSHN9053-14-89 22:30:005.7[facility] OpaboxyPBTVWTVTIT5555-65-78 22:30:000.9[facility] HYMVAAKPBV3998-69-55 22:30:001.8[facility] MnihruyRRLEJUMEDW6345-32-34 22:30:00 59.8[facility] JiygkyhUQCEBJTSFW9083-37-82 22:30:009.6[facility] HermannHEMATOLOGY 2018-10-08 22:30:0024.0[facility] DiplbxlZLBQQAOATA0502-58-17 22:30:000.3[facility] ZdoqabdLZWFCHCTVA8385-76-26 22:30:000.7[facility] AsslltkPUEOYAQFET3648-08-22 22:30:000.2[facility] YifemnfDQZOXPIMVJ2908-19-05 22:30:00 Test Item Value Reference Range Interpretation Comments PT (test code = PT) 15.9 s 12.0-14.7 [facility] OazthuqKPBURLEQNJ8898-61-57 22:30:00 Test Item Value Reference Range Interpretation Comments INR (test code = INR) 1.30 1 0.85-1.17 [facility] WnxrqlsXXPLPPTPCK0174-57-89 22:30:00 Test Item Value Reference Range Interpretation Comments PTT (test code = PTT) 38.6 s 22.9-35.8 [facility] GwblcbeUPBBHOJGAL6053-21-66 22:30:00 Test Item Value Reference Range Interpretation Comments MCH (test code = MCH) 30.5 pg 27.0-31.0 [facility] VzeihuqQQBNEEMTFS0399-84-91 22:30:0024.3[facility] HermannHEMATOLOGY 2018-10-08 22:30:008.3[facility] NtapvmzAAQYNPODBS0814-93-43 22:30:0089.0[facility] PgdzrtePYKVZUYUBE1750-18-35 22:30:0034.3[facility] HmrtbpbYHPRCZZGCF2408-71-21 22:30:007.2[facility] PzcbxipJSCMVXCHZZ9298-01-90 22:30:81380Pnfmotty [place] YFWXEAJNJT9287-69-94 22:30:0014.9[facility] WxihorzFMDYVFFUPF0162-51-99 22:30:00 2.9[facility] UxlogmhJESELDXJLN7908-22-82 22:30:002.73[facility] HermannCARDIAC JTWVOWQ6128-93-13 22:30:3043254Wedctxhl HermannCARDIAC MPHWOLC3914-41-36 22:30:122626Tjhtvxei HermannBODY EVQGVC8799-69-01 17:54:00BAL (07/19/18 11:54 AM)[facility]annBODY PPFPHG6586-78-92 17:54:0088[facility]annBODY FLUIDS 2018-07-19 17:54:004[facility]annBODY ZICYXZ1238-17-65 17:54:00Pink *ABN*(07/19/18 11:54 AM)[facility]annBODY ZGQAKW0182-92-18 17:54:604001 [facility]annBODY KIBUGX0513-96-20 17:54:00Moderate Cloudy *ABN*(07/19/18 11:54 AM)[facility]annBODY ZMLRFL3816-47-89 17:54:00Colorless (07/19/18 11:54 AM)[facility]annBODY PIPMSJ8137-32-43 17:54:008[facility] HermannBODY FLUIDS 2018-07-19 17:54:99750Dbrzbcen HermannCARDIAC QQYNPDP3523-56-51 21:26:806316 [facility]annCARDIAC HRXSMJC5275-02-86 21:26:4872316Fybinxuf [place] DRIHUADJHQ8002-88-60 21:26:36<10[facility] JkqaycdUWJGYAJKON8573-14-89 21:26:36 Negative (06/26/18 3:26 PM)[facility] QzlmhtxNGRPIGJWCD7790-36-47 21:26:36Negative (06/26/18 3:26 PM)[facility] GsnygstXNAXADDOFK4610-79-59 21:26:36Negative (06/26/18 3:26 PM)[facility] VydfadtCARFTQWKAI1398-73-09 21:26:36<0.2[facility] JJMVJQDEWR5801-68-46 21:26:36<0.2[facility] HubxrtzNWRXBJQWEU1011-53-32 21:26:36<0.2[facility] IrtvsysFWTLNGCIOT9103-53-47 21:26:36<0.2[facility] HngotgeWZVLPHQMAT3685-10-50 21:26:36<0.2[facility] WmxrnzxPGVBNZUOVP6900-24-04 23:09:007.1[facility] FiexatrYYZWUPAXNZ7289-44-89 23:09:0020.2[facility] HermannCHEM FWDXZ4154-78-08 22:14:008[facility]annCHEM BUHJK6665-47-49 22:14:001.14 [facility]annCHEM SIKJC4353-27-06 22:14:0098[facility]annCHEM PANEL 2017 22:14:009.2[facility] HermannCHEM GWNZF6622-55-30 22:14:0028[facility]annCHEM SQEQF0515-62-35 22:14:0096[facility]annCHEM QCAXL3600-13-32 22:14:0034[facility]annCHEM DXNKO3477-12-58 22:14:003.7[facility]annCHEM QQBXA9049-89-66 22:14:89817Gcituyxl HermannCHEM EHAXV9280-95-31 22:14:0016.0 [facility]annCHEM SJNNK3473-10-92 22:14:0018.0[facility]annCHEM PANEL 2017 22:14:006.1[facility]annBL[facility]OD BANK LFSLDGH4320-98-37 15:25:00 Product available 1(12/21/17 10:25 AM)[facility] IVTXUFS3941-02-82 15:25:00Negative (12/21/17 10:25 AM)[facility]annCHEM KYCLC6609-57-13 15:15:00 9[facility]annCHEM ALZRT9233-96-57 15:15:0017.0[facility]annCHEM PANEL 2017 15:15:0021.0[facility] HermannCHEM PPVHN4531-00-49 15:15:007.1[facility]annCHEM UAMZV4738-07-00 15:15:0035[facility]annCHEM DFLWJ3044-81-59 15:15:0094[facility]annCHEM AQHXX8807-04-73 15:15:003.3[facility] HermannCHEM KTYBN6661-24-56 15:15:14106Ocoiplnv HermannCHEM VPFDB5248-76-01 15:15:001.20 [facility]annCHEM DNUQR1764-12-09 15:15:0084[facility]annCHEM PANEL 2017 15:15:0026[facility] HermannCHEM MXMIZ1998-22-69 15:15:008.5[facility] AvxoxuqNMNEOVFLHUZE0887-02-60 11:09:0014.4[facility] NpnwvelHWIZUNJYGOPY5284-17-24 11:09:006[facility] XjrqyglHDMEUACLIUHV4348-40-29 11:09:0027[facility] KVQKOXCVFAQG3809-48-34 11:09:85020Nktctfwd EgrryogILCNSOBLZFMF6394-54-69 11:09:003.4[facility] CdnoythPLVBMUTEWELF6106-42-38 11:09:0039[facility] ANSYNBFUMPEG5180-30-34 11:09:0084[facility] LikswimDVWIAZECWASU5891-48-40 11:09:00 9.4[facility] IcftqnnNMHZXZWTIZKU1469-43-41 11:09:06917C[facility]hsemh [place] FWKURQHDWDQM0665-85-83 11:09:0012.10[facility] RphtajrAYZJXZTKQC7271-44-65 11:09:000.2[facility] PdofawfRVZJQFPNGS3965-19-08 11:09:000.3[facility] MTNJTLMXAQ7002-57-57 11:09:001.1[facility] DeykcrsAQIJDDQFQU3862-45-98 11:09:00 35.1[facility] EceycegNFMNYMANEC1985-98-52 11:09:008.2[facility] HermannHEMATOLOGY 2017-11-20 11:09:001.1[facility] XbnakxjSOEBSZWKEO6041-05-81 11:09:001.6[facility] FfgnwfrMJFYOKDILX3249-91-06 11:09:005.5[facility] FxsodafDNSXNMCHIJ1656-11-05 11:09:0050.1[facility] RqzzuilSTQLTCORGA1362-31-34 11:09:0084.5[facility] WIGKISAXNJ3127-37-85 11:09:0035.5[facility] UmtsfsdCGLROIKAPC0916-94-65 11:09:00 Test Item Value Reference Range Interpretation Comments MCH (test code = MCH) 30.0 pg 27.0-31.0 [facility] XllzmzlGYQGESWHBI1871-50-76 11:09:74570Nclwadko HermannHEMATOLOGY 2017-11-20 11:09:007.4[facility] DsfgiqsUWMQBXJANN9922-01-55 11:09:0015.2[facility] TttczmuXUGDJCSBRS3345-13-97 11:09:0020.6[facility] CfoytfwEGOBGBXDCW9432-60-05 11:09:007.3[facility] TpeqcloRQLEXEJCRH4054-08-60 11:09:002.44[facility] JODAWGHMEH4861-08-49 11:09:003.2[facility] HermannCHEM OFIQK2573-18-87 10:10:002.3 [facility]annCHEM JIBQT6672-64-42 10:10:008[facility] HermannCHEM PANEL 2017-11-19 10:10:79941Yqyqvvdc HermannCHEM FUWSV7387-61-91 10:10:0011.5[facility] HermannCHEM ZNCNG5716-34-74 10:10:008.9[facility] HermannCHEM EIBXR9649-73-48 10:10:006.2[facility] HermannCHEM HIFCX4152-13-21 10:10:00 Test Item Value Reference Range Interpretation Comments B/C Ratio (test code = B/C Ratio) 3 1 6-25 [facility]annCHEM GCUSA3124-00-87 10:10:0030[facility]annCHEM PANEL 2017-11-19 10:10:002.9[facility] HermannCHEM EOFMH8100-88-95 10:10:003.3[facility] HermannCHEM IKFCE1056-61-06 10:10:0014[facility] HermannCHEM EUJCO8352-83-66 10:10:00 Test Item Value Reference Range Interpretation Comments A/G Ratio (test code = A/G Ratio) 0.9 1 0.7-1.6 [facility]annCHEM CXRSF0108-19-78 10:10:0044[facility] HermannCHEM PANEL 2017-11-19 10:10:0011[facility] HermannCHEM TYQLS3528-86-97 10:10:000.7[facility] HermannCHEM SBFRL6005-95-34 10:10:0030[facility]annCHEM WPIJV2602-58-11 10:10:003.5[facility] HermannCHEM VEYMP9999-39-36 10:10:75769Yxtolfzq HermannCHEM PMLNN0571-93-75 10:10:009.88[facility] HermannCHEM EIATA7336-65-55 10:10:0082 [facility]annCHEM WECJL6981-43-32 10:10:003.6[facility] HermannHEMATOLOGY 2017-11-19 10:10:000.2[facility] IgbsestMFBHOZUAJU5074-53-61 10:10:001.1[facility] SejcmkfDPLHYOBOVN2312-51-10 10:10:001.4[facility] JtqawdhGQWNHWODIO2222-55-43 10:10:000.9[facility] RvhncajBHWKLDZVJQ0932-96-22 10:10:000.3[facility] GMMDXOZMFM9299-45-15 10:10:0046.7[facility] PltrxxzYIZDLEBCQB1103-40-17 10:10:00 37.0[facility] TlrthnwFVKKVAELVK2094-14-97 10:10:005.0[facility] HermannHEMATOLOGY 2017-11-19 10:10:0010.4[facility] FqythgrKNYGUZTSMY2202-08-45 10:10:75138Vimluysu WcmikqkXYMOLRBBVW2591-42-57 10:10:0014.8[facility] QfhexdsHMPQOVTOCL5372-43-41 10:10:007.6[facility] SoqkcwxQGAPDCWEBP1253-47-41 10:10:0035.2[facility] VXAREKWNJV7807-46-22 10:10:00 Test Item Value Reference Range Interpretation Comments MCH (test code = MCH) 30.0 pg 27.0-31.0 [facility] TafteazRUTHISDZXA1523-83-18 10:10:003.0[facility] HermannHEMATOLOGY 2017-11-19 10:10:006.9[facility] JuopalhPEDFTAIBGI7591-82-15 10:10:0085.1[facility] ChskcorIGTUGEEFLL5379-08-52 10:10:0019.5[facility] TyspqxiOBQYCDPVJV4142-69-02 10:10:002.29[facility] JybwbwwVORTUIRTMQ5584-44-18 10:10:00 Test Item Value Reference Range Interpretation Comments INR (test code = INR) 1.21 1 0.85-1.17 [facility]OIMETQYNKH8257-92-57 10:10:00 Test Item Value Reference Range Interpretation Comments PT (test code = PT) 15.4 s 12.0-14.7 [facility]landHtvmyoaALULADZMHJ4400-40-38 10:10:00 Test Item Value Reference Range Interpretation Comments PTT (test code = PTT) 37.1 s 22.9-35.8 [facility] BANK EDSLZMY0836-96-82 14:08:00Product available (11/18/17 9:08 AM)[facility] HermannCHEM EISOV5236-00-88 10:47:0010[facility] HermannCHEM WPWFZ1569-87-92 10:47:000.8[facility] HermannCHEM EFISQ6328-45-74 10:47:0052 [facility] HermannCHEM MBBPS0157-79-02 10:47:0013[facility] HermannCHEM PANEL 2017-11-18 10:47:0013Mem[facility] HermannCHEM FTEJE5935-94-77 10:47:003.7[facility] HermannCHEM KKNPP0695-63-94 10:47:00 Test Item Value Reference Range Interpretation Comments A/G Ratio (test code = A/G Ratio) 0.8 1 0.7-1.6 [facility] HermannCHEM EGYAY6750-85-67 10:47:003.1[facility] HermannCHEM PANEL 2017-11-18 10:47:0020[facility] HermannCHEM GYYAZ4118-35-44 10:47:07337Qprcdgmb HermannCHEM UARMK3351-04-57 10:47:007.56[facility] HermannCHEM TSYZM1664-98-80 10:47:0080[facility] HermannCHEM KLBFB1518-20-34 10:47:90288Uykrblym HermannCHEM ZYMLY3825-03-62 10:47:0030[facility] HermannCHEM LDILS1207-04-54 10:47:003.5 [facility] HermannCHEM SGVOK9403-86-40 10:47:0013.5[facility] HermannCHEM PANEL 2017-11-18 10:47:008.8[facility] HermannCHEM OXQHB5650-21-62 10:47:00 Test Item Value Reference Range Interpretation Comments B/C Ratio (test code = B/C Ratio) 3 1 6-25 [facility] HermannCHEM EGSQC7348-80-03 10:47:006.8[facility] HermannCHEM PANEL 2017-11-18 10:47:002.3[facility] HermannCHEM TZWFE3963-08-06 10:47:002.4[facility] JmkzazqJSIZXGMEAU6490-91-60 10:47:0034.9[facility] DgbkynkBTUARSMLSR4587-80-70 10:47:0014.0[facility] BlnihqeISZFHNNKII6936-50-91 10:47:61611Dxmxdngo [place] ABHIWZXUVA5511-97-64 10:47:003.7[facility] QenmuddJPHXZRSTRS0286-53-11 10:47:00 2.34[facility] LuuqkmvYENKZSBUAM0165-49-69 10:47:00 Test Item Value Reference Range Interpretation Comments MCH (test code = MCH) 30.0 pg 27.0-31.0 [facility] ExjqwxxQHRFYUKHZQ7608-13-58 10:47:007.0[facility] HermannHEMATOLOGY 2017-11-18 10:47:0020.1[facility] IcfzihpESZSZILYCY6415-66-66 10:47:0086.0[facility] LxxbytdHNESQVPRYY2065-92-44 10:47:007.6[facility] PjtzkqkLDTBMJVZOL1045-12-59 10:47:001.1[facility] YyrrwnfJBHZUGKBDT9891-58-81 10:47:000.1[facility] RDORFHEIUG7408-01-41 10:47:000.4[facility] UdcfbzzASITYHOQUW5491-52-01 10:47:000.7 [facility] TnfvahpOWYQKGMYPD8458-05-31 10:47:002.0[facility] HermannHEMATOLOGY 2017-11-18 10:47:0030.5[facility] AcnuodoDGIAAYYTZH2861-30-29 10:47:003.6[facility] DbuomgeJQKJCLBMDX9361-99-81 10:47:009.8[facility] EatpjnlQPJADRJBUA1448-03-31 10:47:0055.4[facility] VlthrkeBJLNFTUBAB6935-54-74 10:47:00 Test Item Value Reference Range Interpretation Comments INR (test code = INR) 1.28 1 0.85-1.17 [facility] DktpouqYCARIBZYQZ5581-07-63 10:47:00 Test Item Value Reference Range Interpretation Comments PT (test code = PT) 16.1 s 12.0-14.7 [facility]HqieouaJHFBDKVXOC4360-65-26 10:47:00 Test Item Value Reference Range Interpretation Comments PTT (test code = PTT) 38.5 s 22.9-35.8 [facility] JVVQFOR3974-41-82 00:45:00Negative (11/17/17 7:45 PM) [facility] HKUYNUI3688-61-15 00:32:00Product available (11/17/17 7:32 PM)[facility] JMYWF9061-72-56 23:00:001.9[facility] HermannCHEM KEJUN3954-01-68 23:00:002.2[facility] HermannCHEM RLDCS0369-84-13 23:00:00 Test Item Value Reference Range Interpretation Comments A/G Ratio (test code = A/G Ratio) 0.9 1 0.7-1.6 [facility] HermannCHEM SNSDI4618-30-63 23:00:003.5[facility] HermannCHEM PANEL 2017-11-17 23:00:00 Test Item Value Reference Range Interpretation Comments B/C Ratio (test code = B/C Ratio) 3 1 6-25 [facility]annCHE[facility] XBWPQ3701-33-15 23:00:0012[facility]annCHEM PANEL 2017-11-17 23:00:003.0[facility]annCHEM SFVCF5378-42-73 23:00:006.5[facility]annCHEM LQLRU0189-75-89 23:00:000.5[facility]annCHEM UMTNY3287-73-38 23:00:0048[facility]annCHE[facility] BBBZR1930-11-94 23:00:0012[facility] MBWEODHOWV6740-95-43 23:00:00 Test Item Value Reference Range Interpretation Comments PT (test code = PT) 15.7 s 12.0-14.7 [facility]CZXXSBWTKB5020-97-49 23:00:00 Test Item Value Reference Range Interpretation Comments PTT (test code = PTT) 37.6 s 22.9-35.8 [facility]landZshydzqRSRUGCHBVC8148-55-67 23:00:00 Test Item Value Reference Range Interpretation Comments INR (test code = INR) 1.24 1 0.85-1.17 [facility] DxuzdypMFWQCTCEMP1632-19-04 23:00:00Negative *NA*(11/17/17 6:00 PM) [facility]annANEMIA JRQQB9548-96-02 02:42:35298Dlljvikf HermannANEMIA STUDY 2017-11-17 02:42:0082[facility]annANEMIA ANHDA3329-18-78 02:42:0033[facility]annANEMIA CGTHN8435-48-07 02:42:58599Xvgaikwj HermannANEMIA OMFAN2582-80-58 02:42:0040[facility] LWGPXVW1609-66-94 20:29:00See Report 1(09/22/17 2:29 PM)[facility] SKCITAK4191-66-66 23:34:00See Report 1(09/20/17 5:34 PM)[facility] SBNNXPD0755-93-15 16:36:00See Report 1(10/25/16 10:36 AM)[facility] ZwcrrrtTQEKVMSJQL9357-24-35 18:19:0026.0[facility] CbvztzyFFYUWPZCGD1565-97-54 18:19:008.8[facility] YEAVMAKDMZ3809-24-49 18:19:0091[facility] UxtnovcAUVOSDYWHZ8537-35-30 18:19:0039 [facility] QolqavxHFCTEMRRFN0902-48-89 18:19:64623Smpnmqrl HermannHEMATOLOGY 2016-05-17 18:19:97902Yssoxpuv PtaronbSRRSUETCJL7910-29-10 18:19:005.6[facility] WerqzziPWIUNYPGSD2100-05-39 12:21:0028.0[facility] PcgeyrgHZJKJRALKM1025-64-38 12:21:0092[facility] AqlphksSXRLDMQKJC1101-61-09 12:21:009.5[facility] ZMKBDLWZMT8097-49-46 12:21:004.8[facility] CkrmnayRAAHATIAAG5875-28-63 12:21:84167 [facility] DpmdizhITIJOYGAYO9169-79-50 12:21:87124Pkrxfnag HermannHEMATOLOGY 2016-05-17 12:21:0036[facility] WjahubcIAFXXJURXU7616-46-93 15:32:008.8[facility] LvxwataIQEHFIBPNX4178-95-40 15:32:0026.0[facility] XsckvvdUKDLDNKAUM4517-20-11 15:32:89117[place]p NrexppeKOWPFZMCCF6839-21-06 15:32:90304Hkhwpcys [place] TGWXPCMEZP4599-83-28 15:32:004.4[facility] DqgxkevWOYJUTFNRW2838-98-55 15:32:0033 [facility] LaghphwFCHXRZKNTL7621-32-85 15:32:0099[facility] HermannELECTROLYTES 2015-10-20 13:23:0012.9[facility] PvqqqaxEFULTGBOMVOP5483-96-02 13:23:008[facility] YkotbqtJIPKBGJPGREG4589-61-44 13:23:0031[facility] CkepzcaJUNZFHSOQMOS0118-80-29 13:23:009.40[facility] SftujymBPIJEKSWGHPQ4903-67-30 13:23:35892Zywbaslx [place] GNRARAMWXRMB0022-62-03 13:23:0028[facility] WnbddvdAXZWVFBKJBKC4442-17-69 13:23:00 9.0[facility] QawxsttMVDDUGLQAZEO7946-32-83 13:23:003.9[facility] MDXBXWROZNYT3120-26-11 13:23:20880Yulgonuv UwpmnbkRCJIUWHCVGRO3223-44-51 13:23:0089[facility] OisolmcTYMKRRMXJP0311-59-19 13:23:002.1[facility] WAJYMBMKDM7470-53-53 13:23:000.5[facility] LnxkbvfPQWGWUVHEZ8420-24-81 13:23:003.3 [facility] QmuwqkwJBNOBFGYZD5185-39-85 13:23:004.7[facility] HermannHEMATOLOGY 2015-10-20 13:23:0033.8[facility] JmqpqclERXCFXTVEP0846-25-36 13:23:009.1[facility] MvuwwotTYTKXVMDYE1360-88-28 13:23:000.0[facility] ZxoanicCBXLULPCTD5407-11-86 13:23:000.3[facility] JobxwxdVFLEQXSAPU0288-94-73 13:23:000.6[facility] UUPMUGLJKA1245-76-00 13:23:0051.9[facility] VuarzfnVEFVLQJWMK3670-10-22 13:23:00 14.9[facility] CdkxaprIHOIQZVTHI6003-50-34 13:23:008.6[facility] HermannHEMATOLOGY 2015-10-20 13:23:99342Gtngoxtc JdwzzyzFUVXATUPXN9843-29-40 13:23:0030.4[facility] YkfojroWMWCJNCYMG5901-93-89 13:23:0010.4[facility] GrhwkabQODWBTABCS8572-24-38 13:23:0034.1[facility] AjcokbwBGOZTYPRJS1239-00-70 13:23:00 Test Item Value Reference Range Interpretation Comments MCH (test code = MCH) 28.7 pg 27.0-31.0 [facility] MlnahbrIQPAHCLVLB9504-80-71 13:23:0084.1[facility] HermannHEMATOLOGY 2015-10-20 13:23:003.61[facility] JomypxiFGZMZSVBSL4021-19-72 13:23:006.3[facility] HermannCHEM ZJYQY9126-39-22 12:53:0094[facility] HermannCHEM IRVMG6821-85-87 12:53:0030.0[facility] HermannCHEM ALYTO4065-33-21 12:53:0010.2[facility] CHEM DRIBQ4552-02-95 12:53:69088Nrpwoddg HermannCHEM LIVTC5521-27-25 12:53:0032 [facility]annCHEM JRVXN6518-39-71 12:53:004.1[facility] HermannCHEM PANEL 2015-10-20 12:53:39377Udnmiijl [place]
[2020-11-09] MEDS ORDERED: ACETAMINOPHEN 500 MG TAB ONE ×2 (09:49→16:28)
--- NOTE | 2020-11-09 10:21 | RAD REPORT ---
EXAM DESCRIPTION: RAD - Chest Pa And Lat (2 Views) - 11/09/2020 10:16 am CLINICAL HISTORY: DYSPNEA Chest pain. COMPARISON: Chest Single View dated 02/23/2017; CHEST SINGLE VIEW dated 08/31/2015; CHEST SINGLE VIEW d ated 08/24/2015; CHEST SINGLE VIEW dated 08/22/2015 FINDINGS: Moderate bilateral pulmonary opacities are present most compatible with pulmonary edema or pneumonia. Small pleural effusions suspected. The heart is moderately enlarged in size. No lytic or blastic bone lesion.
[2020-11-09 11:02] LABS: SARS-COV-2 RT PCR POSITIVE (NEGATIVE)
[2020-11-09 11:12] LABS: Absolute Lymphocytes (CBC) 0.5 K/uL (0.7-4.9); Basophils % 0.8 % (0-1.3); Lymphocytes % 17.2 % (15.3-44.8); MPV 9.1 fL (7.6-11.3); RBC Red Blood Cell Count 2.73 M/uL (4.33-5.43)
[2020-11-09 11:26] LABS: Protime INR 1.18
[2020-11-09 11:56] LABS: Bilirubin Direct 0.2 mg/dL (0-0.2); Bilirubin Total 0.5 mg/dL (0.2-1.0); Potassium 3.5 mmol/L (3.5-5.1); Protein, Total 8.3 g/dL (6.4-8.2)
--- NOTE | 2020-11-09 12:36 | EDPHYS ---
Physician Documentation [facility] Name: Clyde Juárez Age: 29 yrs Sex: Male : 1990 Arrival Date: 11/09/2020 Time: 08:59 Bed 14 Private MD: ED Physician Elan Harman HPI: 11/09 09:47 This 29 yrs old Black Male presents to ER via Ambulatory with complaints of Fever, jr8 Chills, Shortness Of Breath. 09:47 The patient reports fever, with an emergency department temperature of 102.3 degrees jr8 Fahrenheit. Onset: The symptoms/episode began/occurred gradually, 2 day(s) ago. Modifying factors: The patient has had contact with sick mother, Denies recent travel. Associated signs and symptoms: Pertinent positives: cough, shortness of breath. Severity of symptoms: At their worst the symptoms were mild in the emergency department the symptoms are unchanged. The patient has not experienced similar symptoms in the past. The patient has not recently seen a physician. Historical: - Allergies: 09:07 No Known Allergies; ss - PMHx: 09:07 Hypertension; DIALYSIS MWF; ESRD; ss - PSHx: 09:07 pins put in right thumb; fistula left upper arm; ss - Immunization history:: Adult Immunizations unknown. - Social history:: Smoking status: Patient denies any tobacco usage or history of. ROS: 09:47 Eyes: Negative for injury, pain, redness, and discharge, ENT: Negative for injury, jr8 pain, and discharge, Neck: Negative for injury, pain, and swelling, Cardiovascular: Negative for chest pain, palpitations, and edema, Abdomen/GI: Negative for abdominal pain, nausea, vomiting, diarrhea, and constipation, Back: Negative for injury and pain, MS/Extremity: Negative for injury and deformity, Skin: Negative for injury, rash, and discoloration, Neuro: Negative for headache, weakness, numbness, tingling, and seizure. 09:47 Constitutional: Positive for chills, fever. 09:47 Respiratory: Positive for cough, shortness of breath. Exam: 09:47 Eyes: Pupils equal round and reactive to light, extra-ocular motions intact. Lids and jr8 lashes normal. Conjunctiva and sclera are non-icteric and not injected. Cornea within normal limits. Periorbital areas with no swelling, redness, or edema. ENT: Nares patent. No nasal discharge, no septal abnormalities noted. Tympanic membranes are normal and external auditory canals are clear. Oropharynx with no redness, swelling, or masses, exudates, or evidence of obstruction, uvula midline. Mucous membranes moist. Neck: Trachea midline, no thyromegaly or masses palpated, and no cervical lymphadenopathy. Supple, full range of motion without nuchal rigidity, or vertebral point tenderness. No Meningismus. Cardiovascular: Regular rate and rhythm with a normal S1 and S2. No gallops, murmurs, or rubs. Normal PMI, no JVD. No pulse deficits. Respiratory: Lungs have equal breath sounds bilaterally, clear to auscultation and percussion. No rales, rhonchi or wheezes noted. No increased work of breathing, no retractions or nasal flaring. Abdomen/GI: Soft, non-tender, with normal bowel sounds. No distension or tympany. No guarding or rebound. No evidence of tenderness throughout. Back: No spinal tenderness. No costovertebral tenderness. Full range of motion. Skin: Warm, dry with normal turgor. Normal color with no rashes, no lesions, and no evidence of cellulitis. MS/ Extremity: Pulses equal, no cyanosis. Neurovascular intact. Full, normal range of motion. Neuro: Awake and alert, GCS 15, oriented to person, place, time, and situation. Cranial nerves II-XII grossly intact. Motor strength 5/5 in all extremities. Sensory grossly intact. Cerebellar exam normal. Normal gait. Vital Signs: 09:06 BP 158 / 78; Pulse 99; Resp 18; Temp 102.3(O); Pulse Ox 99% on R/A; Weight 97.52 kg; Height 6 ft. 5 in. (195.58 cm); Pain 0/10; 10:19 BP 118 / 70; Pulse 91; Resp 17; Pulse Ox 98% ; jl7 11:21 BP 131 / 76; Pulse 90; Resp 22; Temp 101.2; Pulse Ox 95% ; jl7 12:30 BP 112 / 63; Pulse 90; Resp 21 S; Temp 98.9(O); Pulse Ox 95% on R/A; jl7 14:00 BP 119 / 65; Pulse 80; Resp 22; Pulse Ox 98% ; jl7 15:00 BP 124 / 71; Pulse 82; Resp 21; Pulse Ox 98% ; [facility] 16:25 BP 132 / 72; Pulse 82; Resp 22; Temp 98.5; Pulse Ox 98% ; [facility] 09:06 Body Mass Index 25.50 (97.52 kg, 195.58 cm) ss MDM: 09:02 Patient medically screened. [facility] 12:34 Data reviewed: vital signs, nurses notes, lab test result(s), EKG, radiologic studies, [facility] plain films. Data interpreted: Pulse oximetry: on room air is 95 %. Interpretation: acceptable. Counseling: I had a detailed discussion with the patient and/or guardian regarding: the historical points, exam findings, and any diagnostic results supporting the discharge/admit diagnosis, lab results, radiology results, the need for further work-up and treatment in the hospital. 11/09 10:28 Order name: C-Reactive Protein [facility] 11/09 10:28 Order name: Basic Metabolic Panel [facility] 11/09 10:28 Order name: Blood Culture Adult (2) [facility] 11/09 10:28 Order name: CBC with Diff [facility] 11/09 10:28 Order name: CPK; Complete Time: 12:00 [facility] 11/09 10:28 Order name: Lactate; Complete Time: 11:35 [facility] 11/09 10:28 Order name: LFT's; Complete Time: 12:00 [facility] 11/09 10:28 Order name: Procalcitonin; Complete Time: 12:21 [facility] 11/09 10:28 Order name: Protime (+inr); Complete Time: 11:35 [facility] 11/09 10:28 Order name: Ptt, Activated; Complete Time: 11:35 [facility] 11/09 10:29 Order name: C-Reactive Protein; Complete Time: 12:00 [facility] 11/09 10:29 Order name: Basic Metabolic Panel; Complete Time: 12:00 [facility] 11/09 09:19 Order name: XRAY Chest Pa And Lat (2 Views); Complete Time: 10:26 [facility] 11/09 10:29 Order name: Blood Culture [facility] 11/09 10:29 Order name: CBC with Automated Diff; Complete Time: 11:35 [facility] 11/09 11:02 Order name: COVID-19/FLU A+B; Complete Time: 11:02 EDMS 11/09 11:04 Order name: Glucose, Ancillary Testing; Complete Time: 11:35 [facility] 11/09 16:00 Order name: C-Reactive Protein [facility] 11/09 16:00 Order name: C-Reactive Protein [facility] 11/09 16:00 Order name: Comprehensive Metabolic Panel [facility] 11/09 16:00 Order name: Comprehensive Metabolic Panel [facility] 11/09 16:00 Order name: Ferritin [facility] 11/09 16:00 Order name: Ferritin [facility] 11/09 16:00 Order name: Lipid Profile [facility] 11/09 16:00 Order name: Lipid Profile [facility] 11/09 10:28 Order name: Accucheck; Complete Time: 11:00 [facility] 11/09 10:28 Order name: Cardiac monitoring; Complete Time: 11: [facility] 11/09 10:28 Order name: EKG - Nurse/Tech; Complete Time: 11: [facility] 11/09 10:28 Order name: IV Saline Lock - Large Bore; Complete Time: 11: [facility] 11/09 10:28 Order name: Labs collected and sent; Complete Time: 11: [facility] 11/09 10:28 Order name: O2 Per Protocol; Complete Time: 11: [facility] 11/09 10:28 Order name: O2 Sat Monitoring; Complete Time: 11: [facility] 11/09 16:00 Order name: CONS Physician Consult [facility] 11/09 16:00 Order name: CONS Physician Consult [facility] 11/09 16:48 Order name: Diet Heart Healthy; Complete Time: 16:48 jl7 Administered Medications: 09:36 Drug: Tylenol 1000 mg Route: PO; jl7 11:21 Follow up: Response: No adverse reaction; Temperature is decreased jl7 12:42 Drug: LevaQUIN 500 mg Volume: 100 ml; Route: IVPB; Infused Over: 60 mins; Site: right jl7 forearm; 13:42 Follow up: Response: No adverse reaction; IV Status: Completed infusion jl7 16:20 Drug: Tylenol 1000 mg Route: PO; jl7 Disposition: 11/10 07:25 Co-signature as Attending Physician, Elan Harman MD. rn Disposition: 11/09/20 12:35 Hospitalization ordered by Brenden Javier for Observation. Preliminary diagnosis are Pneumonia due to SARS-associated coronavirus, Dyspnea, End stage renal disease. - Bed requested for Telemetry/MedSurg (observation). - Status is Observation. em - Condition is Stable. - Problem is new. - Symptoms have improved. Signatures: Dispatcher [employer] EDMS Donna Baker Denver Feliz, RN RN em Elan Harman MD MD rn Smirch, Shelby, RN RN ss Urbano Felix, PA PA jr8 Dileep Cantu RN RN jl7 Corrections: (The following items were deleted from the chart) 11/09 10:10 09:17 CORONAVIRUS+MR.LAB.BRZ ordered. EDMS EDMS 10:11 09:19 Influenza Screen (A \T\ B)+BA.LAB.BRZ ordered. EDNV EDMS 12:35 12:35 Hospitalization Ordered by Brenden Javier MD for Observation. Preliminary jr8 diagnosis is Pneumonia due to SARS-associated coronavirus; Dyspnea. Bed requested for Telemetry/MedSurg (observation). Status is Observation. Condition is Stable. Problem is new. Symptoms have improved. jr8 16:51 12:35 11/09/2020 12:35 Hospitalization Ordered by Brenden Javier MD for Observation. ss Preliminary diagnosis is Pneumonia due to SARS-associated coronavirus; Dyspnea; End stage renal disease. Bed requested for Telemetry/MedSurg (observation). Status is Observation. Condition is Stable. Problem is new. Symptoms have improved. jr8 18:45 16:51 11/09/2020 12:35 Hospitalization Ordered by Brenden Javier MD for Observation. bd Preliminary diagnosis is Pneumonia due to SARS-associated coronavirus; Dyspnea; End stage renal disease. Bed requested for [facility] ER HOLD. Status is Observation. Condition is Stable. Problem is new. Symptoms have improved. ss 19:57 18:45 11/09/2020 12:35 Hospitalization Ordered by Brenden Javier MD for Observation. em Preliminary diagnosis is Pneumonia due to SARS-associated coronavirus; Dyspnea; End stage renal disease. Bed requested for Telemetry/MedSurg (observation). Status is Observation. Condition is Stable. Problem is new. Symptoms have improved. bd
--- NOTE | 2020-11-09 12:36 | ER ---
Nurse's Notes [facility] Name: Clyde Juárez Age: 29 yrs Sex: Male : 1990 Arrival Date: 11/09/2020 Time: 08:59 Bed 14 Private MD: Diagnosis: Pneumonia due to SARS-associated coronavirus;Dyspnea;End stage renal disease Presentation: 11/09 09:06 Chief complaint: Patient states: cough, shortness of breath and chills that began 2 ss days ago. Coronavirus screen: Client presents with at least one sign or symptom that may indicate coronavirus-19. Standard/surgical mask placed on the client. Provider contacted for isolation considerations. Ebola Screen: Patient denies exposure to infectious person. Patient denies travel to an Ebola-affected area in the 21 days before illness onset. Initial Sepsis Screen: Does the patient meet any 2 criteria? No. Patient's initial sepsis screen is negative. Does the patient have a suspected source of infection? No. Patient's initial sepsis screen is negative. Risk Assessment: Do you want to hurt yourself or someone else? Patient reports no desire to harm self or others. Onset of symptoms was November 07, 2020. 09:06 Method Of Arrival: Ambulatory ss 09:06 Acuity: ROSSY 4 ss 10:31 Acuity: ROSSY 3 jl7 Historical: - Allergies: 09:07 No Known Allergies; ss - PMHx: 09:07 Hypertension; DIALYSIS MWF; ESRD; ss - PSHx: 09:07 pins put in right thumb; fistula left upper arm; ss - Immunization history:: Adult Immunizations unknown. - Social history:: Smoking status: Patient denies any tobacco usage or history of. Screenin:25 Abuse screen: Denies threats or abuse. Denies injuries from another. Nutritional jl7 screening: No deficits noted. Tuberculosis screening: No symptoms or risk factors identified. Fall Risk None identified. Assessment: 09:25 General: Appears in no apparent distress. uncomfortable, ill, Behavior is calm, jl7 cooperative, appropriate for age. Pain: Complains of pain in [place]. Neuro: Level of Consciousness is awake, alert, obeys commands, Oriented to person, place, time, situation. Cardiovascular: Rhythm is regular. Respiratory: Airway is patent Respiratory effort is even, unlabored, Respiratory pattern is regular, symmetrical, Breath sounds are clear bilaterally. Derm: Skin is pink, warm \T\ dry. 10:30 Reassessment: Patient appears in no apparent distress at this time. No changes from jl7 previously documented assessment. Patient and/or family updated on plan of care and expected duration. Pain level reassessed. Patient is alert, oriented x 3, equal unlabored respirations, skin warm/dry/pink. 11:30 Reassessment: Patient appears in no apparent distress at this time. No changes from jl7 previously documented assessment. Patient and/or family updated on plan of care and expected duration. Pain level reassessed. Patient is alert, oriented x 3, equal unlabored respirations, skin warm/dry/pink. 12:30 Reassessment: Patient appears in no apparent distress at this time. No changes from jl7 previously documented assessment. Patient and/or family updated on plan of care and expected duration. Pain level reassessed. Patient is alert, oriented x 3, equal unlabored respirations, skin warm/dry/pink. 13:30 Reassessment: Patient appears in no apparent distress at this time. No changes from jl7 previously documented assessment. Patient and/or family updated on plan of care and expected duration. Pain level reassessed. Patient is alert, oriented x 3, equal unlabored respirations, skin warm/dry/pink. 14:30 Reassessment: Patient appears in no apparent distress at this time. No changes from jl7 previously documented assessment. Patient and/or family updated on plan of care and expected duration. Pain level reassessed. Patient is alert, oriented x 3, equal unlabored respirations, skin warm/dry/pink. 15:30 Reassessment: Patient appears in no apparent distress at this time. No changes from jl7 previously documented assessment. Patient and/or family updated on plan of care and expected duration. Pain level reassessed. Patient is alert, oriented x 3, equal unlabored respirations, skin warm/dry/pink. 16:15 Reassessment: Pt c.o low back pain, requesting Tylenol, VO received for 1000 mg Tylenol jl7 PO. Vital Signs: 09:06 BP 158 / 78; Pulse 99; Resp 18; Temp 102.3(O); Pulse Ox 99% on R/A; Weight 97.52 kg; ss Height 6 ft. 5 in. (195.58 cm); Pain 0/10; 10:19 BP 118 / 70; Pulse 91; Resp 17; Pulse Ox 98% ; jl7 11:21 BP 131 / 76; Pulse 90; Resp 22; Temp 101.2; Pulse Ox 95% ; jl7 12:30 BP 112 / 63; Pulse 90; Resp 21 S; Temp 98.9(O); Pulse Ox 95% on R/A; jl7 14:00 BP 119 / 65; Pulse 80; Resp 22; Pulse Ox 98% ; jl7 15:00 BP 124 / 71; Pulse 82; Resp 21; Pulse Ox 98% ; jl7 16:25 BP 132 / 72; Pulse 82; Resp 22; Temp 98.5; Pulse Ox 98% ; jl7 09:06 Body Mass Index 25.50 (97.52 kg, 195.58 cm) ED Course: 08:59 Patient arrived in ED. ds1 09:02 Urbano Felix PA is PHCP. jr8 09:02 Elan Harman MD is Attending Physician. jr8 09:07 Triage completed. ss 09:07 Arm band placed on left wrist. ss 09:13 Dileep Cantu, DAVID is Primary Nurse. jl7 09:25 Patient has correct armband on for positive identification. Bed in low position. Call jl7 light in reach. Side rails up X 1. Pulse ox on. NIBP on. 09:25 COVID swab sent to lab. Flu and/or RSV swab sent to lab. jl7 10:09 X-ray completed. Patient tolerated procedure well. Patient moved to radiology via mh1 wheelchair. Patient moved back from radiology. 10:10 XRAY Chest Pa And Lat (2 Views) In Process Unspecified. EDMS 10:45 First set of blood cultures drawn by me. jl7 10:50 Initial lab(s) drawn, by me, sent to lab. Second set of blood cultures drawn by me. jl7 11:20 Notified ED physician of a critical lab result(s). HGB 7.6. ss 11:21 Inserted saline lock: 20 gauge in right forearm, using aseptic technique. Blood jl7 collected. 12:17 Blood Culture Sent. jl7 12:17 C-Reactive Protein Sent. jl7 12:17 Basic Metabolic Panel Sent. jl7 12:17 Blood Culture Adult (2) Sent. jl7 12:17 CBC with Diff Sent. jl7 12:34 Brenden Javier MD is Hospitalizing Provider. jr8 18:56 No provider procedures requiring assistance completed. Patient admitted, IV remains in jl7 place. intact, No redness/swelling at site. 19:14 Primary Nurse role handed off by Dileep Cantu RN mw2 Administered Medications: 09:36 Drug: Tylenol 1000 mg Route: PO; jl7 11:21 Follow up: Response: No adverse reaction; Temperature is decreased jl7 12:42 Drug: LevaQUIN 500 mg Volume: 100 ml; Route: IVPB; Infused Over: 60 mins; Site: right jl7 forearm; 13:42 Follow up: Response: No adverse reaction; IV Status: Completed infusion jl7 16:20 Drug: Tylenol 1000 mg Route: PO; jl7 Outcome: 12:35 Decision to Hospitalize by Provider. jr8 18:56 Admitted to ER Hold. Please see [facility] for further documentation. jl7 18:56 Condition: stable 18:56 Discharge instructions given to patient, Instructed on the need for admit, Demonstrated understanding of instructions. 19:57 Patient left the ED. em Signatures: Dispatcher [employer] EDDanielle Edward 1 Denver Stanford RN RN Tammi Puckett ds1 Bindu Cazares RN RN Urbano Felix PA PA Dileep Garnett RN RN jl7 Casey Duque mw2 Corrections: (The following items were deleted from the chart) 11:21 10:30 BP 131 / 76; Pulse 90bpm; Resp 22bpm; Pulse Ox 95%; Temp 101.2F; jl7 jl7
[2020-11-09] MEDS ORDERED: Levofloxacin500mg IV 500 MG/100 ML BAG IV ONE (12:56)
[2020-11-09] MEDS ORDERED: ONDANSETRON 4 MG/2 ML VIAL IV PRN (15:53)
[2020-11-09] MEDS ORDERED: MORPHINE 2 MG/ML SYR IV PRN (15:53)
[2020-11-09] MEDS ORDERED: ACETAMINOPHEN 500 MG TAB PO PRN (15:53)
[2020-11-09] MEDS ORDERED: NA CHLORIDE 0.9% 1,000 ML IV SCH (16:00)
[2020-11-09 18:53] VITALS: BMI 25.4
--- NOTE | 2020-11-09 20:17 | P.CNS ---
Date of Consult: 11/09/20 Reason for Consult: ESRD Requesting Physician: Brenden Javier Chief Complaint: Fever History of Present Illness: 09:47 This 29 yrs old Black Male presents to ER via Ambulatory with complaints of Fever, jr8 Chills, Shortness Of Breath. 09:47 The patient reports fever, with an emergency department temperature of 102.3 degrees jr8 Fahrenheit. Onset: The symptoms/episode began/occurred gradually, 2 day(s) ago. Modifying factors: The patient has had contact with sick mother, Denies recent travel. Associated signs and symptoms: Pertinent positives: cough, shortness of breath. Severity of symptoms: At their worst the symptoms were mild in the emergency department the symptoms are unchanged. The patient has not experienced similar symptoms in the past. The patient has not recently seen a physician. Allergies No Known Drug Allergies Allergy (Verified 08/21/15 17:13) Unknown No Known Allergi Allergy (Uncoded 02/23/17 06:21) Unknown Home medications list reviewed: Yes Home Medications: Carvedilol [Coreg] 25 mg PO BID #30 tablet 08/31/15 Hydralazine [Apresoline] 20 mg PO BID #60 tab 08/31/15 Losartan Potassium [Cozaar] 50 mg PO DAILY #30 tablet 08/31/15 Nifedipine [Procardia Xl] 90 mg PO DAILY #30 tab.er.24 08/31/15 - Past Medical/Surgical History Diabetic: No -: asthma -: recent bleed ulcers (GI) - Family History mom Medical History: Hypertension, Kidney disease Notes: polycystic kidney disease uncle Medical History: Heart disease, Stroke, Kidney disease Notes: kidney polycystic disease. aneurysm 1996 - Social History Smoking Status: Never smoker Alcohol use: Yes CD- Drugs: No Caffeine use: No Review of Systems 10-point ROS is otherwise unremarkable General: Fever, Weakness, Malaise Respiratory: Cough, Shortness of Breath, SOB with Excertion Neurological: Weakness Physical Examination Temp Pulse Resp BP Pulse Ox 98.5 F 81 21 H 132/76 98 11/09/20 17:30 11/09/20 17:30 11/09/20 17:30 11/09/20 17:30 11/09/20 17:30 General: Cooperative, Mild distress HEENT: Atraumatic Neck: Supple Respiratory: Diminished Cardiovascular: No edema, Regular rate/rhythm Gastrointestinal: Soft and benign, Non-distended Musculoskeletal: No clubbing, No contractures Integumentary: No rashes, No cyanosis Neurological: Normal speech Laboratory Data (last 24 hrs) 11/09/20 10:50: PT 13.6 H, INR 1.18, APTT 36.6 11/09/20 10:50: WBC 2.90 L, Hgb 7.6 L*, Hct 23.0 L, Plt Count 143 L 11/09/20 10:50: Sodium 138, Potassium 3.5, BUN 36 H, Creatinine 9.57 H*, Glucose 93, Total Bilirubin 0.5, AST 14 L, ALT 7 L, Alkaline Phosphatase 48 Imagings Data: EXAM DESCRIPTION: RAD - Chest Pa And Lat (2 Views) - 11/09/2020 10:16 am CLINICAL HISTORY: DYSPNEA Chest pain. COMPARISON: Chest Single View dated 02/23/2017; CHEST SINGLE VIEW dated 08/31/2015; CHEST SINGLE VIEW dated 08/24/2015; CHEST SINGLE VIEW dated 08/22/2015 FINDINGS: Moderate bilateral pulmonary opacities are present most compatible with pulmonary edema or pneumonia. Small pleural effusions suspected. The heart is moderately enlarged in size. No lytic or blastic bone lesion. Conclusions/Impression: A/P: Continue the current POC and Medications other than the changes listed. AM Labs PRN. Recommend daily weight. Please see the orders for complete details. 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
[2020-11-09] MEDS ORDERED: EPOETIN ALFA 10,000 UNIT/ML VIAL SQ ONE (20:45)
[2020-11-09] MEDS: APIXABAN 2.5 MG TABLET PO SCH (21:11)
[2020-11-09] MEDS: METHYLPREDNISOLONE 40 MG INJ IV SCH (21:11)
[2020-11-09] MEDS ORDERED: EPOETIN ALFA-EPBX 10,000 UNIT/ML VIAL ONE (21:37)
[2020-11-10 04:30] LABS: Absolute Lymphocytes (CBC) 0.2 K/uL (0.7-4.9); Basophils % 0.5 % (0-1.3); Hematocrit 23.1 % (39.6-49.0); Lymphocytes % 13.3 % (15.3-44.8); MPV 8.9 fL (7.6-11.3); RBC Red Blood Cell Count 2.75 M/uL (4.33-5.43)
[2020-11-10 04:38] LABS: Albumin 2.5 g/dL (3.4-5.0); Bilirubin Total 0.4 mg/dL (0.2-1.0); Ferritin 5428.1 ng/mL (26-388); Magnesium 2.3 mg/dL (1.8-2.4); Phosphorus 4.7 mg/dL (2.5-4.9); Potassium 4.4 mmol/L (3.5-5.1); Protein, Total 7.4 g/dL (6.4-8.2)
[2020-11-10 06:22] LABS: Blood Morphology Comment NOT SEEN (NOT SEEN); Platelet Estimate ADEQ; White Blood Cell Scan OK (OK)
[2020-11-10] MEDS: APIXABAN 2.5 MG TABLET PO SCH ×2 (08:45→22:00)
[2020-11-10] MEDS: VITAMIN D 5,000 UNIT CAP PO SCH (08:46)
[2020-11-10] MEDS: CALCITROL 0.25 MCG CAP PO SCH (08:46)
[2020-11-10] MEDS: METHYLPREDNISOLONE 40 MG INJ IV SCH ×2 (08:46→22:00)
[2020-11-10] MEDS ORDERED: MULTIVITAMINS,THERAPEUT 1 TAB PO SCH (09:00)
[2020-11-10] MEDS: COENZYME Q10- 200 MG CAP PO SCH (09:45)
[2020-11-10] MEDS: NIFEDIPINE XL 90 MG TABLET PO SCH ×2 (11:43→22:01)
[2020-11-10] MEDS: carvediloL 25 MG TAB PO SCH ×2 (11:43→22:01)
--- NOTE | 2020-11-10 12:36 | P.CNS ---
Date of Consult: 11/10/20 Reason for Consult: Respiratory failure from albrecht virus Chief Complaint: Fever History of Present Illness: Patient is 29 years of age with end-stage renal disease admitted with 2 day history of cough fever chills found to have albrecht virus pneumonia is currently doing well on nasal cannula oxygen patient has significant cardiomegaly Allergies No Known Drug Allergies Allergy (Verified 08/21/15 17:13) Unknown No Known Allergi Allergy (Uncoded 02/23/17 06:21) Unknown Home Medications: Carvedilol [Coreg] 50 mg PO BID 11/09/20 Famotidine [Pepcid*] 20 mg PO BID 11/09/20 Hydralazine [Apresoline*] 50 mg PO TID 11/09/20 Nifedipine [Nifedipine ER] 90 mg PO BID 11/09/20 - Past Medical/Surgical History Diabetic: No -: asthma -: recent bleed ulcers (GI) -: GERD -: HTN -: ESRD -: HD M-W-F -: [employer] -: old HD access L wrist -: R thumb sx -: lap total L nephrectomy - Family History mom Medical History: Hypertension, Kidney disease Notes: polycystic kidney disease uncle Medical History: Heart disease, Stroke, Kidney disease Notes: kidney polycystic disease. aneurysm 1996 - Social History Smoking Status: Never smoker Alcohol use: Yes CD- Drugs: No Caffeine use: No Place of Residence: Home Review of Systems General: Weakness Respiratory: Cough, Shortness of Breath Physical Examination Temp Pulse Resp BP Pulse Ox 98.1 F 85 20 165/92 H 97 11/10/20 08:00 11/10/20 08:00 11/10/20 08:00 11/10/20 08:00 11/10/20 08:00 General: Other (Deferred due to active albrecht virus infection) - Problems (1) Acute respiratory failure due to severe acute respiratory syndrome coronavirus 2 (SARS-CoV-2) infection Current Visit: Yes Status: Acute Plan: Patient is 29 years of age admitted with respiratory failure from albrecht virus he has very impressive cardiomegaly also appears to have pancytopenia and chronic renal failure I have added high doses of steroids Remdesmir oxygenation satisfactory possible discharge in 1 or 2 days
[2020-11-10] MEDS ORDERED: Remdesivir 200 MG in NA CHLORIDE 0.9% 250 ML IV ONE (14:00)
--- NOTE | 2020-11-10 20:54 | P.PN ---
Date of Service: 11/10/20 Vital Signs Temp Pulse Resp BP Pulse Ox 97.4 F 82 18 139/80 90 L 11/10/20 16:00 11/10/20 16:00 11/10/20 16:00 11/10/20 16:00 11/10/20 16:00 Medications Acetaminophen (Acetaminophen 500 Mg Tab) 500 mg PO Q6H PRN PRN Reason: pain/fever Last Admin: 11/10/20 00:09 Dose: 500 mg Documented by: Apixaban (Apixaban 2.5 Mg Tablet) 2.5 mg PO BID [facility] Last Admin: 11/10/20 08:45 Dose: 2.5 mg Documented by: Calcitriol (Calcitrol 0.25 Mcg Cap) 0.5 mcg PO DAILY [facility] Last Admin: 11/10/20 08:46 Dose: 0.5 mcg Documented by: Carvedilol (Carvedilol 25 Mg Tab) 50 mg PO BID [facility] Last Admin: 11/10/20 11:43 Dose: 50 mg Documented by: Cholecalciferol (Vitamin D 5,000 Unit Cap) 5,000 unit PO DAILY [facility] Last Admin: 11/10/20 08:46 Dose: 5,000 unit Documented by: Coenzyme Q10 (Coenzyme Q10- 200 Mg Cap) 200 mg PO DAILY [facility] Last Admin: 11/10/20 09:45 Dose: 200 mg Documented by: Epoetin Juve (Epoetin 4,000 Unit/Ml Vial) 4,000 unit SQ M,W,F [facility] Famotidine (Famotidine 20 Mg Tab) 20 mg PO Q48H [facility]; Protocol Remdesivir 100 mg/ Sodium (Chloride) 250 mls @ 500 mls/hr IV Q24H [facility] Stop: 11/14/20 09:29 Methylprednisolone Sodium Succinate (Methylprednisolone 40 Mg Inj) 80 mg IV BID [facility] Last Admin: 11/10/20 08:46 Dose: 80 mg Documented by: Morphine Sulfate (Morphine 2 Mg/Ml Syr) 2 mg IV Q4H PRN PRN Reason: Pain scale 5-7 (Moderate) Nifedipine (Nifedipine Xl 90 Mg Tablet) 90 mg PO BID [facility] Last Admin: 11/10/20 11:43 Dose: 90 mg Documented by: Ondansetron HCl (Ondansetron 4 Mg/2 Ml Vial) 4 mg IV Q4H PRN PRN Reason: NAUSEA / VOMITING Sodium Chloride (Flush Normal Saline 10 Ml) 10 ml IV BID [facility] Last Admin: 11/10/20 08:46 Dose: 10 ml Documented by: Vitamin B Complex/Vit C/Folic Acid (Multivitamins,Therapeut 1 Tab) 1 tab PO DAILY [facility] Last Admin: 11/10/20 08:52 Dose: 1 tab Documented by: Microbiology Results 11/09/20 10:45 Blood - Blood Aerobic Blood Culture - Preliminary No growth in 24 hours. 11/09/20 10:45 Blood - Blood Anaerobic Blood Culture - Preliminary No growth in 24 hours. 11/09/20 10:50 Blood - Blood Aerobic Blood Culture - Preliminary No growth in 24 hours. 11/09/20 10:50 Blood - Blood Anaerobic Blood Culture - Preliminary No growth in 24 hours. Assessment/ Plan: Nephrology +Dyspnea, malaise, fatigue and weakness No acute events overnight. Vitals, medications, blood work and imaging reviewed in the chart. General: Cooperative, Mild distress HEENT: Atraumatic Neck: Supple Respiratory: Diminished Cardiovascular: No edema, Regular rate/rhythm Gastrointestinal: Soft and benign, Non-distended Musculoskeletal: No clubbing, No contractures Integumentary: No rashes, No cyanosis Neurological: Normal speech Laboratory Data (last 24 hrs) 11/09/20 10:50: PT 13.6 H, INR 1.18, APTT 36.6 11/09/20 10:50: WBC 2.90 L, Hgb 7.6 L*, Hct 23.0 L, Plt Count 143 L 11/09/20 10:50: Sodium 138, Potassium 3.5, BUN 36 H, Creatinine 9.57 H*, Glucose 93, Total Bilirubin 0.5, AST 14 L, ALT 7 L, Alkaline Phosphatase 48 Imagings Data: EXAM DESCRIPTION: RAD - Chest Pa And Lat (2 Views) - 11/09/2020 10:16 am CLINICAL HISTORY: DYSPNEA Chest pain. COMPARISON: Chest Single View dated 02/23/2017; CHEST SINGLE VIEW dated 08/31/2015; CHEST SINGLE VIEW dated 08/24/2015; CHEST SINGLE VIEW dated 08/22/2015 FINDINGS: Moderate bilateral pulmonary opacities are present most compatible with pulmonary edema or pneumonia. Small pleural effusions suspected. The heart is moderately enlarged in size. No lytic or blastic bone lesion. Conclusions/Impression: A/P: Continue the current POC and Medications other than the changes listed. AM Labs PRN. Recommend daily weight. Please see the orders for complete details. 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
[2020-11-10] MEDS ORDERED: FAMOTIDINE 20 MG TAB PO SCH (21:00)
[2020-11-10] MEDS ORDERED: NA CHLORIDE 0.9% 1,000 ML IV PRN (21:04)
[2020-11-10] MEDS ORDERED: MANNITOL 25% 12.5 GM/50 ML VIAL IV PRN (21:04)
[2020-11-10 21:33] LABS: Absolute Lymphocytes (CBC) 0.6 K/uL (0.7-4.9); Basophils % 0.7 % (0-1.3); Hematocrit 30.2 % (39.6-49.0); Lymphocytes % 24.3 % (15.3-44.8); MPV 8.8 fL (7.6-11.3); RBC Red Blood Cell Count 3.64 M/uL (4.33-5.43)
[2020-11-10] MEDS ORDERED: ALBUMIN HUMAN 25% 50 ML IV SCH (22:00)
[2020-11-10] MEDS: MELATONIN 5 MG TABLET PO SCH (22:00)
[2020-11-10] MEDS: JUVEN PACKET PO SCH (22:00)
[2020-11-10 22:05] LABS: Anisocytosis 1+; Blood Morphology Comment NOTED (NOT SEEN); Platelet Estimate ADEQ
[2020-11-11 04:40] LABS: Albumin 2.2 g/dL (3.4-5.0); Bilirubin Total 0.3 mg/dL (0.2-1.0); Phosphorus 6.3 mg/dL (2.5-4.9); Protein, Total 6.9 g/dL (6.4-8.2); Uric Acid 6.3 mg/dL (3.5-7.2)
[2020-11-11 04:46] LABS: Potassium 5.6 mmol/L (3.5-5.1)
--- NOTE | 2020-11-11 07:05 | EKG ---
Test Date: 2020-11-09 Test Time: 10:08:38 Manager Training: NOEL MEASUREMENT RESULTS: Intervals: Rate: 91 VT: 150 QRSD: 90 QT: 358 QTc: 440 [place]: P: 54 VT: 150 QRS: 90 T: 75 INTERPRETIVE STATEMENTS: Normal sinus rhythm Rightward axis Borderline ECG Compared to ECG 08/22/2015 07:06:53 Right-axis deviation now present Electronically Signed On 11-11-20 07:02:43 CDT by Daniel Queen
[2020-11-11] MEDS: CALCITROL 0.25 MCG CAP PO SCH (09:00)
[2020-11-11] MEDS: APIXABAN 2.5 MG TABLET PO SCH ×2 (09:00→21:00)
[2020-11-11] MEDS: METHYLPREDNISOLONE 40 MG INJ IV SCH (09:00)
[2020-11-11] MEDS ORDERED: MULTIVITAMINS,THERAPEUT 1 TAB PO SCH (09:00)
[2020-11-11] MEDS ORDERED: Remdesivir 100 MG in NA CHLORIDE 0.9% 250 ML IV SCH ×2 (09:00→14:00)
[2020-11-11] MEDS: JUVEN PACKET PO SCH ×2 (09:00→21:00)
[2020-11-11] MEDS: NIFEDIPINE XL 90 MG TABLET PO SCH ×2 (09:00→21:00)
--- NOTE | 2020-11-11 10:01 | P.HP ---
Certification for Inpatient Patient admitted to: Inpatient With expected LOS: >2 Midnights Patient will require the following post-hospital care: None Practitioner: I am a practitioner with admitting privileges, knowledge of patient current condition, hospital course, and medical plan of care. Services: Services provided to patient in accordance with Admission requirements found in Title 42 Section 412.3 of the Code of Federal Regulations Patient History Date of Service: 11/09/20 Reason for admission: Fever History of Present Illness: Patient is a 29-year-old gentleman who came to the hospital with difficulty breathing. Patient was short of breath and having coughing congestion. Patient has a history of IgA nephropathy and polycystic kidney disease which resulted in end-stage renal disease. Patient has been feeling ill and had a fever so came into the hospital for evaluation. Patient was found have COVID-19 pneumonia. Patient will be admitted to the hospital and will Consult Pulmonary and Nephrology. Allergies No Known Drug Allergies Allergy (Verified 08/21/15 17:13) Unknown No Known Allergi Allergy (Uncoded 02/23/17 06:21) Unknown Home Medications: Carvedilol [Coreg] 50 mg PO BID 11/09/20 Famotidine [Pepcid*] 20 mg PO BID 11/09/20 Hydralazine [Apresoline*] 50 mg PO TID 11/09/20 Nifedipine [Nifedipine ER] 90 mg PO BID 11/09/20 - Past Medical/Surgical History Has patient received pneumonia vaccine in the past: No Diabetic: No -: asthma -: recent bleed ulcers (GI) -: GERD -: HTN -: ESRD -: HD M-W-F -: [employer] -: old HD access L wrist -: R thumb sx -: lap total L nephrectomy - Family History mom Medical History: Hypertension, Kidney disease Notes: polycystic kidney disease uncle Medical History: Heart disease, Stroke, Kidney disease Notes: kidney polycystic disease. aneurysm 1996 - Social History Smoking Status: Former smoker Alcohol use: Yes CD- Drugs: No Caffeine use: No Place of Residence: Home Review of Systems 10-point ROS is otherwise unremarkable Physical Examination - Vital Signs Temperature: 96.8 F Blood Pressure: 127/76 Pulse: 75 Respirations: 18 Pulse Ox (%): 96 - Physical Exam General: Alert, In no apparent distress, Oriented x3 HEENT: Atraumatic, PERRLA, Mucous membr. moist/pink, EOMI, Sclerae nonicteric Neck: Supple, 2+ carotid pulse no bruit, No LAD, Without JVD or thyroid abnormality Respiratory: Diminished, Expiratory wheezes Cardiovascular: Regular rate/rhythm, Normal S1 S2, No murmurs Gastrointestinal: Normal bowel sounds, Soft and benign, Non-distended, No tenderness Musculoskeletal: No clubbing, No tenderness, Swelling Integumentary: No rashes Neurological: Normal gait, Normal speech, Normal strength at 5/5 x4 extr, Normal tone, Sensation intact, Cranial nerves 3-12 intact, Normal affect Lymphatics: No axilla or inguinal lymphadenopathy Assessment & Plan - Problems (Diagnosis) (1) Pneumonia due to COVID-19 virus Current Visit: Yes Status: Acute (2) Fever Current Visit: Yes Status: Acute (3) ESRD (end stage renal disease) Current Visit: Yes Status: Acute (4) Polycystic kidney disease Current Visit: Yes Status: Acute (5) IgA nephropathy Current Visit: Yes Status: Acute (6) Hypertension Current Visit: Yes Status: Acute (7) High blood pressure Onset Date: 08/24/15 Current Visit: No Status: Acute - Plan Plan: 1. Continue with IV steroids 2. Monitor inflammatory markers 3. Repeat chest x-ray is symptoms are progressively worsening 4. O2 per protocol 5. Pulmonary consultation 6. Continue with albuterol inhaler therapy; also supportive care 7. Monitor LFTs 8. GI and DVT prophylaxis Discharge Plan: Home - Advance Directives Does patient have a Living Will: No Does patient have a Durable POA for Healthcare: No - Code Status/Comfort Care Code Status Assessed: Yes Code Status: Full Code Critical Care: No Time Spent Managing PTS Care (In Minutes): 45
--- NOTE | 2020-11-11 10:02 | P.PN ---
Subjective Date of Service: 11/10/20 Subjective: No new changes, No C/O voiced, Improving Patient on room air oxygen and satting 95%. Anticipate discharge tomorrow after dialysis if he continues to do well. Review of Systems 10-point ROS is otherwise unremarkable Physical Examination - Vital Signs Temperature: 96.8 F Blood Pressure: 127/76 Pulse: 75 Respirations: 18 Pulse Ox (%): 96 - Physical Exam General: Alert, In no apparent distress, Oriented x3 Respiratory: Clear to auscultation bilaterally, Normal air movement Cardiovascular: Regular rate/rhythm, Normal S1 S2, No murmurs Gastrointestinal: Normal bowel sounds, Soft and benign, Non-distended, No tenderness Musculoskeletal: No clubbing, No swelling, No tenderness Neurological: Sensation intact, Cranial nerves 3-12 intact - Studies Medications List Reviewed: Yes Assessment & Plan - Problems (Diagnosis) (1) Pneumonia due to COVID-19 virus Current Visit: Yes Status: Acute (2) Fever Current Visit: Yes Status: Acute (3) ESRD (end stage renal disease) Current Visit: Yes Status: Acute (4) Polycystic kidney disease Current Visit: Yes Status: Acute (5) IgA nephropathy Current Visit: Yes Status: Acute (6) Hypertension Current Visit: Yes Status: Acute (7) High blood pressure Onset Date: 08/24/15 Current Visit: No Status: Acute - Plan Plan: Continue with plan of care as mentioned below 1. Continue with IV steroids 2. Monitor inflammatory markers 3. Repeat chest x-ray is symptoms are progressively worsening 4. O2 per protocol 5. Pulmonary consultation appreciated/nephrology consultation for hemodialysis 6. Continue with albuterol inhaler therapy; also supportive care 7. Monitor LFTs 8. GI and DVT prophylaxis Discharge Plan: Home Plan to discharge in: 48 Hours - Advance Directives Does patient have a Living Will: No Does patient have a Durable POA for Healthcare: No - Code Status/Comfort Care Code Status: Full Code Critical Care: No Time Spent Managing PTS Care (In Minutes): 35
[2020-11-11 11:47] LABS: Absolute Lymphocytes (CBC) 0.4 K/uL (0.7-4.9); Basophils % 0.3 % (0-1.3); Hematocrit 28.3 % (39.6-49.0); Lymphocytes % 16.1 % (15.3-44.8); MPV 9.1 fL (7.6-11.3); RBC Red Blood Cell Count 3.38 M/uL (4.33-5.43)
[2020-11-11 11:56] LABS: Potassium 5.3 mmol/L (3.5-5.1)
--- NOTE | 2020-11-11 12:39 | P.PN ---
Subjective Date of Service: 11/11/20 Chief Complaint: Coronavirus pneumonia Subjective: Improving (Patient is improving doing better is not requiring oxygen) Review of Systems General: Weakness Respiratory: Shortness of Breath Physical Examination - Vital Signs Temperature: 96.8 F Blood Pressure: 127/76 Pulse: 75 Respirations: 18 Pulse Ox (%): 96 - Studies Medications List Reviewed: Yes Assessment & Plan - Problems (Diagnosis) (1) Acute respiratory failure due to severe acute respiratory syndrome coronavirus 2 (SARS-CoV-2) infection Current Visit: Yes Status: Acute Plan: Patient is doing much better scheduled to undergo dialysis possible discharge vital signs stable change to p.o. prednisone ivermectin stable discharge
[2020-11-11] MEDS ORDERED: IVERMECTIN 3 MG TABLET PO ONE (13:15)
[2020-11-11 16:53] VITALS: BP 139/87; TEMP 97.7
[2020-11-11] MEDS: EPOETIN ALFA 10,000 UNIT/ML VIAL SQ SCH ×2 (17:00→18:15)
[2020-11-11] MEDS ORDERED: EPOETIN ALFA 4,000 UNIT/ML VIAL SQ SCH (17:00)
[2020-11-11] MEDS ORDERED: EPOETIN 4,000 UNIT/ML VIAL SQ SCH (17:00)
[2020-11-11 20:45] VITALS: O2SAT 92
[2020-11-11] MEDS: MELATONIN 5 MG TABLET PO SCH (21:00)
[2020-11-11] MEDS ORDERED: predniSONE 20 MG TAB PO SCH (21:00)
[2020-11-11] MEDS: carvediloL 25 MG TAB PO SCH ×2 (21:00→21:20)
--- NOTE | 2020-11-11 21:13 | P.PN ---
Date of Service: 11/11/20 Vital Signs Temp Pulse Resp BP Pulse Ox 97.7 F 91 H 18 139/87 95 11/11/20 16:00 11/11/20 16:00 11/11/20 16:00 11/11/20 16:00 11/11/20 16:00 Medications Acetaminophen (Acetaminophen 500 Mg Tab) 500 mg PO Q6H PRN PRN Reason: pain/fever Last Admin: 11/10/20 00:09 Dose: 500 mg Documented by: Apixaban (Apixaban 2.5 Mg Tablet) 2.5 mg PO BID [facility] Last Admin: 11/11/20 09:00 Dose: 2.5 mg Documented by: Calcitriol (Calcitrol 0.25 Mcg Cap) 0.5 mcg PO DAILY [facility] Last Admin: 11/10/20 08:46 Dose: 0.5 mcg Documented by: Carvedilol (Carvedilol 25 Mg Tab) 50 mg PO BID [facility] Last Admin: 11/10/20 22:01 Dose: 50 mg Documented by: Cholecalciferol (Vitamin D 5,000 Unit Cap) 5,000 unit PO DAILY [facility] Last Admin: 11/10/20 08:46 Dose: 5,000 unit Documented by: Coenzyme Q10 (Coenzyme Q10- 200 Mg Cap) 200 mg PO DAILY [facility] Last Admin: 11/10/20 09:45 Dose: 200 mg Documented by: Epoetin Juve (Epoetin Juve 10,000 Unit/Ml Vial) 10,000 unit SQ M,W,F [facility] Last Admin: 11/11/20 18:15 Dose: 10,000 unit Documented by: Famotidine (Famotidine 20 Mg Tab) 20 mg PO Q48H [facility]; Protocol Last Admin: 11/10/20 22:00 Dose: 20 mg Documented by: Heparin Sodium (Porcine) (Heparin 1,000 Unit/Ml Vial) 2,000 unit IV EVERY HD PRN PRN Reason: Dialysis Last Admin: 11/11/20 15:55 Dose: 2,000 unit Documented by: Remdesivir 100 mg/ Sodium (Chloride) 250 mls @ 500 mls/hr IV Q24H [facility] Stop: 11/14/20 09:29 Albumin Human (Albumin 25%) 50 mls @ 100 mls/hr IV EVERY HD [facility] L-Arginine/L-Glutamine/HMB (Brown Packet) 1 pkt PO BID [facility] Last Admin: 11/10/20 22:00 Dose: 1 pkt Documented by: Mannitol (Mannitol 25% 12.5 Gm/50 Ml Vial) 12.5 gm IV EVERY HD PRN PRN Reason: Titrate to SBP (MUST DEFINE) Melatonin (Melatonin 5 Mg Tablet) 5 mg PO BEDTIME [facility] Last Admin: 11/10/20 22:00 Dose: 5 mg Documented by: Morphine Sulfate (Morphine 2 Mg/Ml Syr) 2 mg IV Q4H PRN PRN Reason: Pain scale 5-7 (Moderate) Nifedipine (Nifedipine Xl 90 Mg Tablet) 90 mg PO BID [facility] Last Admin: 11/10/20 22:01 Dose: 90 mg Documented by: Ondansetron HCl (Ondansetron 4 Mg/2 Ml Vial) 4 mg IV Q4H PRN PRN Reason: NAUSEA / VOMITING Prednisone (Prednisone 20 Mg Tab) 20 mg PO BID [facility] Sodium Chloride (Flush Normal Saline 10 Ml) 10 ml IV BID [facility] Last Admin: 11/11/20 09:00 Dose: 10 ml Documented by: Vitamin B Complex/Vit C/Folic Acid (Multivitamins,Therapeut 1 Tab) 1 tab PO DAILY [facility] Last Admin: 11/10/20 08:52 Dose: 1 tab Documented by: Vitamin B Complex/Vit C/Folic Acid (Multivitamins,Therapeut 1 Tab) 1 tab PO DAILY [facility] Microbiology Results 11/09/20 10:45 Blood - Blood Aerobic Blood Culture - Preliminary No growth in 24 hours. 11/09/20 10:45 Blood - Blood Anaerobic Blood Culture - Preliminary No growth in 24 hours. 11/09/20 10:50 Blood - Blood Aerobic Blood Culture - Preliminary No growth in 24 hours. 11/09/20 10:50 Blood - Blood Anaerobic Blood Culture - Preliminary No growth in 24 hours. Assessment/ Plan: Nephrology Malaise, fatigue and weakness but feeling better today. No acute events overnight. Vitals, medications, blood work and imaging reviewed in the chart. General: Cooperative, Mild distress HEENT: Atraumatic Neck: Supple Respiratory: Diminished Cardiovascular: No edema, Regular rate/rhythm Gastrointestinal: Soft and benign, Non-distended Musculoskeletal: No clubbing, No contractures Integumentary: No rashes, No cyanosis Neurological: Normal speech Laboratory Data (last 24 hrs) 11/09/20 10:50: PT 13.6 H, INR 1.18, APTT 36.6 11/09/20 10:50: WBC 2.90 L, Hgb 7.6 L*, Hct 23.0 L, Plt Count 143 L 11/09/20 10:50: Sodium 138, Potassium 3.5, BUN 36 H, Creatinine 9.57 H*, Glucose 93, Total Bilirubin 0.5, AST 14 L, ALT 7 L, Alkaline Phosphatase 48 Imagings Data: EXAM DESCRIPTION: RAD - Chest Pa And Lat (2 Views) - 11/09/2020 10:16 am CLINICAL HISTORY: DYSPNEA Chest pain. COMPARISON: Chest Single View dated 02/23/2017; CHEST SINGLE VIEW dated 08/31/2015; CHEST SINGLE VIEW dated 08/24/2015; CHEST SINGLE VIEW dated 08/22/2015 FINDINGS: Moderate bilateral pulmonary opacities are present most compatible with pulmonary edema or pneumonia. Small pleural effusions suspected. The heart is moderately enlarged in size. No lytic or blastic bone lesion. Conclusions/Impression: A/P: Continue the current POC and Medications other than the changes listed. AM Labs PRN. Recommend daily weight. Please see the orders for complete details. 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
[2020-11-11] MEDS: VITAMIN D 5,000 UNIT CAP PO SCH (21:19)
[2020-11-11] MEDS: COENZYME Q10- 200 MG CAP PO SCH (21:20)
--- NOTE | 2020-11-12 08:57 | ECHO ---
HEIGHT: 6 ft 5 in WEIGHT: 211 lb 6.4 oz DATE OF STUDY: 11/11/[address]: Davide Benitez MD 2-DIMENSIONAL: YES M.MODE: YES DOPPLER: YES COLOR FLOW: YES TDS: NO PORTABLE: NO DEFINITY: NO BUBBLE STUDY: NO DIAGNOSIS: CARDIOMEGALY AND RESPIRATORY FAILURE CARDIAC HISTORY: CATHERIZATION: NO SURGERY: NO PROSTHETIC VALVE: NO PACEMAKER: NO MEASUREMENTS (cm) DIASTOLIC (NORMALS) SYSTOLIC (NORMALS) IVSd 1.3 (0.6-1.2) LA Diam 3.4 (1.9-4.0) LVEF 66% LVIDd 6.0 (3.5-5.7) LVIDs 3.8 (2.0-3.5) %FS 37% LVPWd 1.8 (0.6-1.2) Ao Diam 3.1 (2.0-3.7) 2 DIMENSIONAL ASSESSMENT: RIGHT ATRIUM: NORMAL LEFT ATRIUM: NORMAL RIGHT VENTRICLE: NORMAL LEFT VENTRICLE: DILATED, LEFT VENTRICULAR HYPERTROPHY TRICUSPID VALVE: NORMAL MITRAL VALVE: MITRAL VALVE PROLAPSE PULMONIC VALVE: NORMAL AORTIC VALVE: NORMAL PERICARDIAL EFFUSION: MODERATE AORTIC ROOT: NORMAL LEFT VENTRICULAR WALL MOTION: NORMAL LEFT VENTRICULAR EJECTION FRACTION. DOPPLER/COLOR FLOW: MILD MITRAL AND TRICUSPID REGURGITATION. COMMENTS: CONCENTRIC LEFT VENTRICULAR HYPERTROPHY WITH LEFT VENTRICULAR DILATATION. MITRAL VALVE PROLAPSE. MODERATE PERICARDIAL EFFUSION. MILD MITRAL AND TRICUSPID REGURGITATION. NORMAL LEFT VENTRICULAR EJECTION FRACTION. TECHNOLOGIST: Patrice BROCK
--- NOTE | 2020-11-17 05:08 | P.DS ---
Discharge Date: 11/11/20 Disposition: ROUTINE DISCHARGE Discharge Condition: GOOD Reason for Admission: Coronavirus pneumonia Consultations: Nephrology Pulmonary - Problems (1) Pneumonia due to COVID-19 virus Status: Acute (2) Fever Status: Acute (3) ESRD (end stage renal disease) Status: Acute (4) Polycystic kidney disease Status: Acute (5) IgA nephropathy Status: Acute (6) Hypertension Status: Acute (7) High blood pressure Onset Date: 08/24/15 Status: Acute Brief History of Present Illness: Patient is a 29-year-old gentleman who came to the hospital with difficulty breathing. Patient was short of breath and having coughing congestion. Patient has a history of IgA nephropathy and polycystic kidney disease which resulted in end-stage renal disease. Patient has been feeling ill and had a fever so came into the hospital for evaluation. Patient was found have COVID-19 pneumonia. Patient will be admitted to the hospital and will Consult Pulmonary and Nephrology. Hospital Course: Patient did well during his hospital stay. Patient had COVID-19 . Patient was dialyzed and he remained on room air. At this time patient is stable for discharge home. Patient does not need aggressive intervention. Continue with supportive care at discharge. Vital Signs/Physical Exam: Temp Pulse Resp BP Pulse Ox 97.7 F 91 H 18 139/87 95 11/11/20 16:00 11/11/20 16:00 11/11/20 16:00 11/11/20 16:00 11/11/20 16:00 General: Alert, In no apparent distress, Oriented x3 Laboratory Data at Discharge: WBC 2.60 K/uL (4.3-10.9) L 11/11/20 11:03 Hgb 9.3 g/dL (13.6-17.9) L 11/11/20 11:03 Hct 28.3 % (39.6-49.0) L 11/11/20 11:03 Plt Count 162 K/uL (152-406) 11/11/20 11:03 PT 13.6 SECONDS (9.5-12.5) H 11/09/20 10:50 INR 1.18 11/09/20 10:50 APTT 36.6 SECONDS (24.3-36.9) 11/09/20 10:50 Sodium 135 mmol/L (136-145) L 11/11/20 11:03 Potassium 5.3 mmol/L (3.5-5.1) H 11/11/20 11:03 BUN 76 mg/dL (7-18) H 11/11/20 11:03 Creatinine 13.30 mg/dL (0.55-1.3) H* 11/11/20 11:03 Glucose 125 mg/dL (74-106) H 11/11/20 11:03 Uric Acid 6.3 mg/dL (3.5-7.2) 11/11/20 03:31 Phosphorus 6.3 mg/dL (2.5-4.9) H 11/11/20 03:31 Magnesium 2.3 mg/dL (1.8-2.4) 11/10/20 03:14 Total Bilirubin 0.3 mg/dL (0.2-1.0) 11/11/20 03:31 AST 29 U/L (15-37) 11/11/20 03:31 ALT 8 U/L (12-78) L 11/11/20 03:31 Alkaline Phosphatase 40 U/L (45-117) L 11/11/20 03:31 Triglycerides 150 mg/dL (<150) 11/10/20 03:14 Cholesterol 91 mg/dL (<200) 11/10/20 03:14 HDL Cholesterol 31 mg/dL (40-60) L 11/10/20 03:14 Cholesterol/HDL Ratio 2.94 11/10/20 03:14 Home Medications: Carvedilol [Coreg] 50 mg PO BID 11/09/20 Famotidine [Pepcid*] 20 mg PO BID 11/09/20 Hydralazine [Apresoline*] 50 mg PO TID 11/09/20 Nifedipine [Nifedipine ER] 90 mg PO BID 11/09/20 Apixaban [Eliquis *] 2.5 mg PO DAILY #14 tablet 11/11/20 Calcitrol [Rocaltrol*] 0.5 mcg PO DAILY #30 cap 11/11/20 Cefdinir [Omnicef] 300 mg PO DAILY #7 capsule 11/11/20 Cholecalciferol (Vitamin D3) [Vitamin D 5,000 IU Cap*] 5,000 unit PO DAILY #30 cap 11/11/20 New Medications: Apixaban [Eliquis *] 2.5 mg PO DAILY #14 tablet Cefdinir [Omnicef] 300 mg PO DAILY #7 capsule Calcitrol [Rocaltrol*] 0.5 mcg PO DAILY #30 cap Cholecalciferol (Vitamin D3) [Vitamin D 5,000 IU Cap*] 5,000 unit PO DAILY #30 cap Physician Discharge Instructions: OK TO DC IV AND DC HOME FOLLOW-UP WITH PRIMARY CARE PROVIDER IN 1-2 WEEKS FOLLOW-UP WITH Pulmonary and Nephrology; pulmonology in 2 weeks and Nephrology for hemodialysis as an outpatient RETURN TO THE ER IF symptoms worsen CALL or TEXT DR. CARRINGTON AT [phone] IF ANY QUESTIONS REGARDING HOSPITAL STAY. PLEASE CALL THE FLOOR AT [phone] IF ANY MEDICATION OR NURSING QUESTIONS. Diet: Renal Activity: Fall precautions Followup: Davide Benitez MD [ACTIVE - CAN ADMIT] - 1-2 Weeks (Call to schedule fro appointment.) Juwan Spencer MD [ACTIVE - CAN ADMIT] - 1-2 Days (Call for Hemodialysis as an outpatient ) NONE,NONE [Primary Care Provider] - 1-2 Weeks ([facility]All to schedule for appointment) Time spent managing pt's care (in minutes): 35
== END 2020-11-11 21:30 | disposition home or self-care (01) | DRG 177 ==
LOC: ER 08:55 → ERHOLD 16:08 → 4TH 19:44
PROVIDERS: ADMIT Hospitalist; ATTEND Hospitalist
PROC: 5A1D70Z Performance of Urinary Filtration, Intermittent, Less than 6 Hours Per Day (ICD-10-PCS; 2020-11-09)
PROC: XW033E5 Introduction of Remdesivir Anti-infective into Peripheral Vein, Percutaneous Approach, New Technology Group 5 (ICD-10-PCS; principal; 2020-11-10)
DX: U07.1 COVID-19 (principal); N18.6 End stage renal disease; J12.82 Pneumonia due to coronavirus disease 2019; J96.01 Acute respiratory failure with hypoxia; I13.2 Hypertensive heart and chronic kidney disease with heart failure and with stage 5 chronic kidney disease, or end stage renal disease; I50.32 Chronic diastolic (congestive) heart failure; E44.1 Mild protein-calorie malnutrition; N25.81 Secondary hyperparathyroidism of renal origin; D61.818 Other pancytopenia; Q61.3 Polycystic kidney, unspecified; N02.8 Recurrent and persistent hematuria with other morphologic changes; N25.0 Renal osteodystrophy; E87.5 Hyperkalemia; D63.1 Anemia in chronic kidney disease; E87.6 Hypokalemia; Z99.2 Dependence on renal dialysis; Z79.899 Other long term (current) drug therapy; Z68.25 Body mass index [BMI] 25.0-25.9, adult; Z90.49 Acquired absence of other specified parts of digestive tract; Z87.891 Personal history of nicotine dependence; Z79.01 Long term (current) use of anticoagulants
CPT/HCPCS: 0240U; 36415; 71046; 80048; 80053; 80061; 80076; 82550; 82728; 82947; 83605; 83735; 84100; 84145; 84550; 85025; 85610; 85730; 86140; 87040; 90935; 93005; 93306; 96365; 99285; J1644; J2920; J7050; J7512; P9047; Q5105; Q5106

== ENCOUNTER 2020-12-19 12:32 | Emergency (ER) | payer OTHER ==
--- OUTSIDE RECORDS SUMMARY | 2020-12-19 12:38 | XMS REPORT | Continuity of Care Document ---
:1990 Author Organization [facility] t Address [address] [place]. [address] [place] [id number] Care Team Providers Name Role Phone Bill Ortez MD. Primary Care Physician Bennie KOTHARI Attending Clinician Unavailable JOÃO Attending Clinician Unavailable ELMER Attending Clinician Unavailable VASCULAR Attending Clinician Unavailable Carroll HERNANDEZ, Andria Attending Clinician Calixto BUTTS, Erlinda Attending Clinician URODYNAMICS Attending Clinician Unavailable Greyson Kinsey MD Attending Clinician Glynn BUTTS, Guru Attending Clinician Evelyn BUTTS, P. Attending Clinician Yoel Attending Clinician Helio BUTTS Y. Attending Clinician Humble DISLA Attending Clinician Oj BUTTS, J. Attending Clinician Elver HERNANDEZ Attending Clinician Unavailable ORGANTRANSPLANT Attending Clinician Unavailable Unique BUTTS Attending Clinician Smitha DUTTA Attending Clinician Franck MOREL Attending Clinician CALIXTO Admitting Clinician Unavailable UNIQUE Admitting Clinician Unavailable Payers Payer Name Policy Type Policy Effective Date Expiration Date Sour ce Number MEDICAREMEDICARE PART [id number] 2015 Tomás valdes A AND 00:00:00 [facility] [id number] 2015- PresentCOXHEALTH[place]URI [place]are CIGNACIGNA OPEN [id number] 2015 [place] ACCESS/NETWORKxxxxxxx 00:00:00 Met fred [id number] 2015-Present MO Problems Condition Condition Condition Status Onset Resolution Last Treating Co mments Source Name Details Category Date Date Treatment Clinician Date Dialysis Dialysis Disease Active Overview: Tomás valdes AV fistula AV fistula 4-30 Formattin Methodi malfunctio malfunctio 00:00: g of this st n n 00 note might be different from the original. Added automatic ally from request for surgery [id number] ESRD (end ESRD (end Disease Active Imelda ston stage stage 6-19 Methodi renal renal 00:00: st disease) disease) 00 on on dialysis dialysis Encounter Encounter Disease Active Overview: [place] regarding regarding 5-17 Formattin M ethodi vascular vascular 00:00: g of this st access for access for 00 note dialysis dialysis might be for for different end-stage end-stage from the renal renal original. disease disease Added automatic ally from request for surgery [id number] Aneurysm Aneurysm Disease Active Overview: Tomás valdes of of 3-15 Formattin Methodi arterioven arterioven 00:00: g of this st ous ous 00 note dialysis dialysis might be fistula fistula different from the original. Added automatic ally from request for surgery [id number] History of History of Problem Resolve [facility] anemia anemia d [facility] [place] [facility] History of History of Problem Resolve [facility] asthma asthma [facility] [place] [facility] Urinary Urinary Problem Active Univers tract tract [place] of infection [place] [facility] GERD GERD Problem Active Univers (gastroeso (gastroeso it y of phageal phageal [place] reflux reflux Physici disease) disease) ans Hypertensi Hypertensi Problem Active U nivers on on [facility] [place] [facility] Obesity Obesity Problem Active [facility] [place] [facility] Pulmonary Pulmonary Problem Active Uni vers hypertensi hypertensi it y of on on [place] [facility] Encounter Encounter Problem Active Uni vers for other for other ity of preprocedu preprocedu [place]al Physici examinatio examinatio an s n n Neoplasm Neoplasm Problem Active Unive rs of of [place] of uncertain uncertain [place] behavior behavior Physic i of left of left ans kidney kidney Prophylact Prophylact Problem Active U nivers ic ic [place] of antibiotic antibiotic [place] [facility] Dependence Dependence Problem Active U nivers on renal on renal ity of dialysis dialysis [place] [facility] Cough Cough Problem Active [facility] [place] [facility] Complicati Complicati Problem Active U nivers on of on of ity of arterioven arter[place]oven [place]ici dialysis dialysis ans fistula fistula Decreased Decreased Problem Active Uni vers bladder bladder ity of capacity capacity [place] [facility] Low Low Problem Active Univers bladder bladder ity of compliance compliance [place] [facility] OAB OAB Problem Active Univers (overactiv (overactiv it y of e bladder) e bladder) [place] [facility] End-stage End-stage Problem Active Uni vers renal renal ity of disease disease [place] (ESRD) (ESRD) Physici [facility] Pseudoaneu Pseudoaneu Problem Active U nivers rysm rysm ity of [place] [facility] Allergies, Adverse Reactions, Alerts This patient has no known allergies or adverse reactions. Family History Family Member Diagnosis Comments Start Date Stop Date Source Mother Family history of [facility] [place] Polycystic kidney Physici ans Father Family history of [facility] [place] hypertension Physicians Natural father Hypertension Jacob Plata Natural mother Hypertension [place] Catholic Social History Social Habit Start Date Stop Date Quantity Comments [facility] Std Drinks [facility] Meth odist Alcohol Binge Tobacco use and 2020-07-09 2020-07-09 Never used Jacob Khan ethodist exposure 00:00:00 00:00:00 Alcohol intake 2020-07-09 2020-07-09 Current [facility] thodist 00:00:00 00:00:00 non-drinker of alcohol (finding) History SDOH 2018-12-12 2018-12-12 1 [place] Meth odist Alcohol Frequency 00:00:00 00:00:00 Sex [birth year] Jacob Khan ethodist 00:00:00 00:00:00 Smoking Status Start Date Stop Date Source Never smoker James Franklin ramos Medications Ordered Filled Start Stop Current Ordering Indication Dosage Frequency Signature Comments Components Source Medication Medication Date Date Medication? Clinician (SIG) Name Name NIFEdipine Yes 90mg Q.5D Take 90 mg [place] [facility] (ADALAT -28 by mouth 2 Met hodi CC) 90 MG 14:10: (two) st 24 hr 42 times a tablet day. sevelamer 0 Yes 2400mg Q.[id number] Take 2,400 James (RENVELA) 1- [id number] mg by Met hodi 800 mg 14:10: 3D mouth 3 st tablet 42 (three) times a day with meals. Note: Pt takes 3 tabs TID with meals and 1 tab BID with snacks. famotidine Yes 20mg Q.5D Take 20 mg [place] (PEPCID) 20 - by mouth 2 Me thodi MG tablet 14:10: (two) st 42 times a day. sevelamer Yes 800mg Q.5D Take 800 Imelda ston (RENVELA) 1-28 mg by Methodi 800 mg 14:10: mouth 2 st tablet 42 (two) times a day. With snacks. Note: Pt takes 3 tabs TID with meals and 1 tab BID with snacks. carvedilol 2019-08- No 50mg Q.5D Take 50 mg James (COREG) 25 09-11- by mouth 2 Me thodi MG tablet 18:17: 00:00 (two) st 57 :00 times a day with meals. hydrALAZINE 2019-08- No 200mg QD Take 200 James (APRESOLINE - 11-22 mg by Method i ) 100 MG 18:17: 00:[address] tablet 57 :00 every morning. Note: Pt takes 2 tabs QAM and 1 tab QHS. ramipriL 2019-08 2020- No 10mg QD Take 10 mg [place] (ALTACE) 10 09-11 11- by mouth Met hodi MG capsule 18:17: 00:[address] 57 :00 carvediloL 2019-08- No 25mg Q.5D Take 1 [place] (COREG) 25 - 12-22 tablet (25 Me thodi MG tablet 00:00: 23:59 mg total) st 00 :00 by mouth 2 (two) times a day with meals for 30 days. hydrALAZINE 2019-08 2020- No 100mg Q.[id number] Take 1 James (APRESOLINE 1-22 12-22 [id number] tablet Methodi ) 100 MG 00:00: 23:59 3D ([address] tablet 00 :00 total) by mouth every 8 (eight) hours for 30 days. hydrALAZINE 2019-08- No 100mg QD Take 100 James (APRESOLINE -06 11-06 mg by Method i ) 100 MG 11:27: 00:[address] tablet 53 :00 nightly. Note: Pt takes 2 tabs QAM and 1 tab QHS. doxazosin 2019-08- No 8mg Q.5D Take 8 mg [place] (CARDURA) 8 08-26 11-06 by mouth 2 M ethodi MG tablet 11:23: 00:00 (two) st 39 :00 times a day. HYDROcodone Yes acute pain 1{tbl} Q6H Take 1 Jacob -acetaminop 5-14 tablet by Met gregory de la o ([place]) 00:00: mouth st 5-325 mg 00 every 6 per tablet (six) hours as needed for moderate pain for up to 5 days .acute pain. Max Daily Amount: 4 tablets Carvedilol Carvedilol Yes Uni vers 25 MG Oral 25 MG Oral ity of Tablet Tablet [place] [facility] Famotidine Famotidine Yes Uni vers 20 MG Oral 20 MG Oral ity of Tablet Tablet [place] [facility] hydrALAZINE hydrALAZINE Yes U nivers HCl - 50 MG HCl - 50 MG i ty of Oral Tablet Oral Tablet [place] [facility] Minoxidil Minoxidil Yes Unive rs 2.5 MG Oral 2.5 MG Oral i ty of Tablet Tablet [place] [facility] NIFEdipine NIFEdipine Yes Uni vers 90 MG TBCR 90 MG TBCR ity of [place] [facility] Ramipril 10 Ramipril 10 Yes U nivers MG Oral MG Oral ity of Capsule Capsule [place] [facility] Vital Signs Vital Name Observation Time Observation Value Comments Source Systolic blood 2020-12-04 120 mm[Hg] University of pressure 16:25:00 [place] [facility] Diastolic blood 2020-12-04 66 mm[Hg] University o f pressure 16:25:00 [place] [facility] Weight 2020-12-04 211.8 [lb_av] University 16:25:00 [place] [facility] Body mass index 2020-12-04 25.12 kg/m2 [place] o f (BMI) [Ratio] 16:25:00 [place] [facility] Heart Rate 2020-12-04 83 /min [facility] 16:25:00 [place] [facility] O2 SAT 2020-12-04 98 % [facility] 16:25:00 [place] [facility] Systolic blood 2020-12-03 125 mm[Hg] Location: [facility] 15:43:00 Position: [place] [facility] Sitting Diastolic blood 2020-12-03 67 mm[Hg] Location: [facility] 15:43:00 Position: [place] [facility] Sitting Body height 2020-12-03 77 [in_us] [facility] 15:43:00 [place] [facility] Weight 2020-12-03 215 [lb_av] [facility] 15:43:00 [place] [facility] Body mass index 2020-12-03 25.5 kg/m2 [place] o f (BMI) [Ratio] 15:43:00 [place] PhysicTutee ns Heart Rate 2020-12-03 84 /min Location: [facility] 15:43:00 Brachial [place] [facility] Artery; Body temperature 2020-12-03 97.4 [degF] Method: [facility] 15:43:00 Temporal [place] [facility] Systolic blood 2020-09-17 143 mm[Hg] [place] pressure 14:09:00 Catholic Diastolic blood 2020-09-17 74 mm[Hg] [place] pressure 14:09:00 Catholic Heart rate 2020-09-17 89 /min [place] 14:09:00 Catholic Body temperature 2020-09-17 36.56 Lala [place] 14:09:00 Catholic Body height 2020-09-17 198.1 cm [place] 14:09:00 Catholic Body weight 2020-09-17 99.338 kg [place] 14:09:00 Catholic BMI 2020-09-17 25.31 kg/m2 [place] 14:09:00 Catholic Oxygen saturation 2020-09-17 95 /min [place] in Arterial blood 14:09:00 Catholic by Pulse oximetry Respiratory rate 2020-07-12 16 /min [place] 15:43:35 Catholic Procedures Procedure Date / Time Performing Clinician Source Performed CTA Chest [id number] 2020-12-04 00:00:00 [place] [facility] [place] [facility] CTA Upper extremity [id number] 2020-12-04 00:00:00 [facility] Physicians [QL] CBC (INCLUDES 2020-12-02 00:00:00 [facility] DIFF/PLT) Physicians [QL] CMP W/EGFR 2020-12-02 00:00:00 [facility] Physicians [QL] CULTURE, URINE, 2020-12-02 00:00:00 [facility] ROUTINE Physicians CVRAD - Hemodialysis 2020-12-02 00:00:00 [facility] Access Duplex - [id number] Physicians [QL] CBC (INCLUDES 2020-11-09 00:00:00 [facility] DIFF/PLT) Physicians [QL] CMP W/EGFR 2020-11-09 00:00:00 [facility] Physicians [QL] CBC (INCLUDES 2020-10-20 00:00:00 [facility] DIFF/PLT) Physicians [QL] CMP W/EGFR 2020-10-20 00:00:00 [facility] Physicians [QL] CULTURE, URINE, 2020-10-20 00:00:00 [facility] ROUTINE Physicians CT Abdomen/Pelvis w/wo 2020-10-20 00:00:00 [facility] contrast [id number] Chest wo contrast [id number] 2020-10-20 00:00:00 U [facility] Physicians COMPREHENSIVE METABOLIC 2020-07-12 05:05:00 Britney Han Catholic PANEL HC COMPLETE BLD COUNT 2020-07-12 05:05:00 Britney Han Catholic W/AUTO DIFF ESTIMATED GFR 2020-07-12 05:05:00 Britney Han Meth odist POC GLUCOSE 2020-07-11 08:01:00 Jason Rivas ethodist COMPREHENSIVE METABOLIC 2020-07-11 04:40:00 Britney Han Catholic PANEL HC COMPLETE BLD COUNT 2020-07-11 04:40:00 Britney Han Catholic W/AUTO DIFF ESTIMATED GFR 2020-07-11 04:40:00 Britney Han Meth odist HEMOGLOBIN & HEMATOCRIT 2020-07-10 14:33:00 Britney Han Catholic TRANSFUSE RED BLOOD CELLS 2020-07-10 11:18:55 Jason Rivas TRANSFUSE RED BLOOD CELLS 2020-07-10 10:33:46 Jason Rivas BASIC METABOLIC PANEL 2020-07-10 08:10:00 Shemar Remy HC COMPLETE BLD COUNT 2020-07-10 08:10:00 Shemar Remy Catholic W/AUTO DIFF ESTIMATED GFR 2020-07-10 08:10:00 Shemar Remy Meth odist HEMODIALYSIS 2020-07-09 22:59:57 Shemar Remy Meth odist HEMOGLOBIN & HEMATOCRIT 2020-07-09 10:15:00 Luz Mayer POC GLUCOSE 2020-07-09 08:32:00 Jason Rivas ethodist XR CHEST 1 VW PORTABLE 2020-07-09 05:35:49 Estefani Alarcon Catholic Eusebio POC GLUCOSE 2020-07-09 05:09:00 Jason Rivasst BASIC METABOLIC PANEL 2020-07-09 02:05:00 Jason Rivas MAGNESIUM LEVEL 2020-07-09 02:05:00 Jason Rivas ethodist ESTIMATED GFR 2020-07-09 02:05:00 Jason Rivas ethodist HC COMPLETE BLD COUNT 2020-07-09 01:00:00 Paulette Hamilton Catholic W/AUTO DIFF PROTHROMBIN TIME WITH INR 2020-07-09 01:00:00 Paulette Hamilton PARTIAL THROMBOPLASTIN 2020-07-09 01:00:00 Paulette Hamilton on Catholic TIME (PTT) ARTERIAL BLOOD GAS 2020-07-09 01:00:00 Hansel Abdi on Catholic POC GLUCOSE 2020-07-09 00:48:00 Jason Rivas ethodist POC GLUCOSE 2020-07-08 20:14:00 Jason Rivas ethodist OR FL < 1 HOUR 2020-07-08 18:33:15 Paulette Hamilton odist POC GLUCOSE 2020-07-08 17:16:00 Jason Rivas ethodist COMPREHENSIVE METABOLIC 2020-07-08 17:08:00 Laura Deleon PANEL A. ESTIMATED GFR 2020-07-08 17:08:00 Laura Deleon. XR ABDOMEN 1 VW 2020-07-08 16:21:37 Laura Deleon XR CHEST 1 VW PORTABLE 2020-07-08 16:20:20 Laura Deleon AJimmie COMPREHENSIVE METABOLIC 2020-07-08 16:15:00 Laura Deleon PANEL A. ESTIMATED GFR 2020-07-08 16:15:00 Laura Deleon. PROTHROMBIN TIME WITH INR 2020-07-08 16:15:00 Nidia Deleon A. HC COMPLETE BLD COUNT 2020-07-08 15:38:00 Laura Deleon W/AUTO DIFF A. ARTERIAL BLOOD GAS 2020-07-08 15:38:00 Laura Deleon on Catholic A. TRANSFUSE PLATELET 2020-07-08 13:17:11 Dariusz Makiodist PHERESIS Vincent ARTERIAL BLOOD GAS, 2020-07-08 12:29:00 Jason Rivas Catholic CORRECTED SODIUM LEVEL, SYRINGE 2020-07-08 12:29:00 Jason Rivas Catholic POTASSIUM, SYRINGE 2020-07-08 12:29:00 Jason Rivas n Catholic GLUCOSE LEVEL, SYRINGE 2020-07-08 12:29:00 Jason Rivas IONIZED CALCIUM, ARTERIAL 2020-07-08 12:29:00 Jason Rivas HEMOGLOBIN, SYRINGE 2020-07-08 12:29:00 Jason Rivas on Catholic MAGNESIUM LEVEL 2020-07-08 12:29:00 Jason Rivasst PROTHROMBIN TIME WITH INR 2020-07-08 12:29:00 Jason Rivas FIBRINOGEN 2020-07-08 12:29:00 Jason Rivas ethodist PARTIAL THROMBOPLASTIN 2020-07-08 12:29:00 Jason Rivas Catholic TIME (PTT) CBC HEMOGRAM 2020-07-08 12:29:00 Jason Rivas ethodist TRANSFUSE FRESH FROZEN 2020-07-08 11:50:22 Messi Diallo Catholic PLASMA TRANSFUSE RED BLOOD CELLS 2020-07-08 11:39:05 Messi Diallo Catholic TRANSFUSE RED BLOOD CELLS 2020-07-08 11:34:23 Messi Diallo Catholic TRANSFUSE RED BLOOD CELLS 2020-07-08 10:51:42 Messi Diallo ARTERIAL BLOOD GAS, 2020-07-08 10:19:00 Jason Rivas on Catholic CORRECTED POTASSIUM, SYRINGE 2020-07-08 10:19:00 Jasno Rivas n Catholic SODIUM LEVEL, SYRINGE 2020-07-08 10:19:00 Jason Rivas ston Catholic HEMOGLOBIN, SYRINGE 2020-07-08 10:19:00 Jason Rivas on Catholic IONIZED CALCIUM, ARTERIAL 2020-07-08 10:19:00 Jason Rivasist GLUCOSE LEVEL, SYRINGE 2020-07-08 10:19:00 Jason Rivas Catholic MAGNESIUM LEVEL 2020-07-08 10:19:00 Jason Rivas ethodist PROTHROMBIN TIME WITH INR 2020-07-08 10:19:00 Jason Rivas PLATELET COUNT 2020-07-08 10:19:00 Jason Rivas ethodist PARTIAL THROMBOPLASTIN 2020-07-08 10:19:00 Jason Rivas Catholic TIME (PTT) FIBRINOGEN 2020-07-08 10:19:00 Jason Rivas ethodist TRANSFUSE FRESH FROZEN 2020-07-08 09:07:06 Messi Diallo PLASMA TRANSFUSE RED BLOOD CELLS 2020-07-08 08:43:15 Messi Diallo ARTERIAL BLOOD GAS, 2020-07-08 08:14:00 Jason Rivas on Catholic CORRECTED SODIUM LEVEL, SYRINGE 2020-07-08 08:14:00 Jason Rivas Catholic HEMOGLOBIN, SYRINGE 2020-07-08 08:14:00 JoglJason díaz on Catholic POTASSIUM, SYRINGE 2020-07-08 08:14:00 JoglekJason osorio Catholic IONIZED CALCIUM, ARTERIAL 2020-07-08 08:14:00 Jason Rivasist MAGNESIUM LEVEL 2020-07-08 08:14:00 Jason Rivas ethodist GLUCOSE LEVEL, SYRINGE 2020-07-08 08:14:00 Jason Rivas Catholic ARTERIAL LINE 2020-07-08 07:57:36 Messi Diallo Met hodist [place] AN ELECTIVE 2020-07-08 07:56:37 Messi Diallo Met hodist ENDOTRACHEAL AIRWAY SODIUM LEVEL, SYRINGE 2020-07-08 07:56:00 Jason Rivas Catholic ARTERIAL BLOOD GAS, 2020-07-08 07:56:00 Jason Rivas on Catholic CORRECTED POTASSIUM, SYRINGE 2020-07-08 07:56:00 Jason Rivas Catholic HEMOGLOBIN, SYRINGE 2020-07-08 07:56:00 Jason Rivas on Catholic IONIZED CALCIUM, ARTERIAL 2020-07-08 07:56:00 Jason Rivasist GLUCOSE LEVEL, SYRINGE 2020-07-08 07:56:00 Jason Rivas Catholic MAGNESIUM LEVEL 2020-07-08 07:56:00 Jason Rivas M ethodist ACTIVATED CLOTTING TIME 2020-07-08 07:54:00 Jason Rivas Catholic REVISION, ARTERIOVENOUS 2020-07-08 07:28:00 Orlin De Luna Catholic GRAFT, WITH ANGIOGRAPHY De Luna-Hsi HC COMPLETE BLD COUNT 2020-07-08 03:38:00 Bola Arriaza on Catholic W/AUTO DIFF BASIC METABOLIC PANEL 2020-07-08 03:38:00 Bola Arriaza on Catholic TYPE AND SCREEN 2020-07-08 03:38:00 Paulette Hamilton oddillon PARTIAL THROMBOPLASTIN 2020-07-08 03:38:00 Paulette Hamilton on Catholic TIME (PTT) PROTHROMBIN TIME WITH INR 2020-07-08 03:38:00 Paulette [place] Catholic ESTIMATED GFR 2020-07-08 03:38:00 Bola Arriaza PREPARE RBC 2020-07-08 03:38:00 Jason Rivas M ethodist PREPARE FRESH FROZEN 2020-07-08 03:38:00 Jason Rivas PLASMA PREPARE PLATELET PHERESIS 2020-07-08 03:38:00 Jsaon Rivas COVID-19 QUALITATIVE PCR 2020-07-07 13:30:00 Imelda Mcwilliams Catholicdillon Lei HEMODIALYSIS 2020-07-07 09:16:33 Paulette Hamilton HC COMPLETE BLD COUNT 2020-07-07 05:03:00 Bola Arriaza on Catholic W/AUTO DIFF BASIC METABOLIC PANEL 2020-07-07 05:03:00 Bola Arriaza on Catholic ESTIMATED GFR 2020-07-07 05:03:00 Bola Arriaza Met hodist CV LEFT HEART CATH 2020-07-06 14:08:22 Michael Cadet CBC HEMOGRAM 2020-07-06 05:07:00 Lilia Peterson odist BASIC METABOLIC PANEL 2020-07-06 05:07:00 Lilia Peterson Catholic PHOSPHORUS LEVEL 2020-07-06 05:07:00 Lilia Peterson Met hodist MAGNESIUM LEVEL 2020-07-06 05:07:00 Lilia Peterson odist ESTIMATED GFR 2020-07-06 05:07:00 Lilia Peterson Jacob valladares CONSULT TO OSTOMY CARE 2020-07-05 18:25:53 Jason Rivas NURSE HEMOGLOBIN & HEMATOCRIT 2020-07-05 12:45:00 Dariusz Maki HEMODIALYSIS 2020-07-05 12:21:21 MorenoLuz Jacob Me thodist CREATINE KINASE, TOTAL 2020-07-05 02:32:00 Dariusz Maki on Catholic (CPK) Guru HC COMPLETE BLD COUNT 2020-07-05 02:32:00 Jelena Cunha Catholic W/AUTO DIFF Tajdin COMPREHENSIVE METABOLIC 2020-07-05 02:32:00 Jelena Cunha PANEL Tajdin MAGNESIUM LEVEL 2020-07-05 02:32:00 Jelena Cunha Me thodist Tajdin IONIZED CALCIUM 2020-07-05 02:32:00 Jelena Cunha Dc thodist Tajdin BILIRUBIN DIRECT 2020-07-05 02:32:00 Dariusz Maki ESTIMATED GFR 2020-07-05 02:32:00 Dariusz Maki TRANSFUSE RED BLOOD CELLS 2020-07-04 20:56:52 Luz Mayer US DUPLEX ARTERIAL UPPER 2020-07-04 15:20:39 Luz Mayer EXTREMITY RIGHT US DUPLEX VENOUS UPPER 2020-07-04 15:20:26 Luz Mayer Catholic EXTREMITY RIGHT HEMOGLOBIN & HEMATOCRIT 2020-07-04 15:19:00 Estefani Alarcon Eusebio TRANSFUSE RED BLOOD CELLS 2020-07-04 14:31:25 Dariusz Maki POC GLUCOSE 2020-07-04 08:26:00 Dariusz Maki POC GLUCOSE 2020-07-04 05:16:00 Dariusz Maki CREATINE KINASE, TOTAL 2020-07-04 03:00:00 Dariusz Maki Catholic (CPK) Guru PROTHROMBIN TIME WITH INR 2020-07-04 03:00:00 Dariusz Maki Catholic Guru FIBRINOGEN 2020-07-04 03:00:00 Dariusz Maki PARTIAL THROMBOPLASTIN 2020-07-04 03:00:00 Dariusz Maki on Catholic TIME (PTT) [place] HC COMPLETE BLD COUNT 2020-07-04 03:00:00 Estefani Alarcon on Catholic W/AUTO DIFF Eusebio COMPREHENSIVE METABOLIC 2020-07-04 03:00:00 Estefani Alarconu ston Catholic PANEL Eusebio IONIZED CALCIUM 2020-07-04 03:00:00 Estefani Alarcon Met hodist Eusebio MAGNESIUM LEVEL 2020-07-04 03:00:00 Estefani Alarcon Met hodist Eusebio PHOSPHORUS LEVEL 2020-07-04 03:00:00 Estefani Alarcon Me thodist Eusebio LDH 2020-07-04 03:00:00 Estefani Alarcon Met hodist Eusebio BILIRUBIN DIRECT 2020-07-04 03:00:00 Estefani Alarcon Me thodist Eusebio ESTIMATED GFR 2020-07-04 03:00:00 Estefani Alarcon Met hodist Eusebio POC GLUCOSE 2020-07-04 01:12:00 Dariusz Maki POC GLUCOSE 2020-07-03 20:48:00 Jason Rivas ethodist POC GLUCOSE 2020-07-03 20:47:00 Jason Rivas ethodist POC GLUCOSE 2020-07-03 16:40:00 Luis Kinsey Meth oddillon Greyson PROTHROMBIN TIME WITH INR 2020-07-03 16:15:00 Dariusz Maki PARTIAL THROMBOPLASTIN 2020-07-03 16:15:00 Dariusz Maki on Catholic TIME (PTT) Vincent FIBRINOGEN 2020-07-03 16:15:00 Dariusz Maki HC COMPLETE BLD COUNT 2020-07-03 16:15:00 Bebo Gilmore Tomás valdes Catholic W/AUTO DIFF BASIC METABOLIC PANEL 2020-07-03 16:15:00 Bebo Gilmore Tomás valdes Catholic MAGNESIUM LEVEL 2020-07-03 16:15:00 Bebo Gilmore Catholic IONIZED CALCIUM 2020-07-03 16:15:00 Bebo Gilmore Catholic PHOSPHORUS LEVEL 2020-07-03 16:15:00 Bebo Gilmore Catholic ESTIMATED GFR 2020-07-03 16:15:00 Bebo Gilmore Catholic TRANSFUSE RED BLOOD CELLS 2020-07-03 15:19:19 Shemar Remykatiuska Catholic TRANSFUSE RED BLOOD CELLS 2020-07-03 13:47:21 Shemar Remykatiuska Catholic POC GLUCOSE 2020-07-03 12:38:00 Luis Kinsey [place] Meth odist Greyson POC GLUCOSE 2020-07-03 08:57:00 Tio [facility] Meth odist Greyson HEMODIALYSIS 2020-07-03 08:36:14 Jonel Shemar James Meth odist HC COMPLETE BLD COUNT 2020-07-03 06:30:00 Dariusz Maki Catholic W/AUTO DIFF Vincent XR CHEST 1 VW PORTABLE 2020-07-03 05:29:47 Dorian Estefani Hannah harp Catholic Eusebio ARTERIAL BLOOD GAS 2020-07-03 05:05:00 Dorian Estefani Jacob Catholic Eusebio POC GLUCOSE 2020-07-03 05:05:00 Lapsanjeeva [facility] Meth odist Greyson POC GLUCOSE 2020-07-03 00:37:00 Lapmegan [facility] Meth odist [place]yson PROTHROMBIN TIME WITH INR 2020-07-03 00:28:00 Dariusz Maki [place] PARTIAL THROMBOPLASTIN 2020-07-03 00:28:00 Dariusz Maki on Catholic TIME (PTT) Vincent FIBRINOGEN 2020-07-03 00:28:00 Dariusz Maki odist Vincent HC COMPLETE BLD COUNT 2020-07-03 00:28:00 Dariusz Maki Catholic W/AUTO DIFF Vincent VANCOMYCIN LEVEL, RANDOM 2020-07-03 00:28:00 Orlin De Lunau ston Catholic De Luna-Hsi TRIGLYCERIDES 2020-07-03 00:28:00 Dariusz Maki HEPATIC FUNCTION PANEL 2020-07-03 00:28:00 Dariusz Maki on Catholic Guru CREATINE KINASE, TOTAL 2020-07-03 00:28:00 aDriusz Maki on Catholic (CPK) Guru BASIC METABOLIC PANEL 2020-07-03 00:28:00 DorianEstefani Letty on Catholic Eusebio IONIZED CALCIUM 2020-07-03 00:28:00 Estefani Alarcon Met hodist Eusebio MAGNESIUM LEVEL 2020-07-03 00:28:00 Estefani Alarcon Met hodist Eusebio PHOSPHORUS LEVEL 2020-07-03 00:28:00 Estefani Alarcon Me thodist Eusebio LDH 2020-07-03 00:28:00 Estefani Alarcon Met hodist Eusebio ESTIMATED GFR 2020-07-03 00:28:00 Orlin De Luna-Hsi TRANSFUSE CRYOPRECIPITATE 2020-07-02 22:13:17 Luz Mayer TRANSFUSE CRYOPRECIPITATE 2020-07-02 22:00:36 Luz Mayer TRANSFUSE RED BLOOD CELLS 2020-07-02 20:51:09 Paulette Hamilton POC GLUCOSE 2020-07-02 20:34:00 Luis Kinseyish TRANSFUSE RED BLOOD CELLS 2020-07-02 20:06:47 Emilia Gutiérrez Mary XR ABDOMEN 1 VW 2020-07-02 18:34:42 Emilia Gutiérrez Mary TRANSFUSE PLATELET 2020-07-02 17:45:14 Emilia Gutiérrez M ethodist PHERESIS Mary POC GLUCOSE 2020-07-02 17:02:00 Luis Kinsey [place] INSERT 2020-07-02 16:52:23 Laura Deleon CATH,ART,PERCUT,SHORTTERM A. FERRITIN LEVEL 2020-07-02 16:26:00 Prath, Deondre Rollins odist Ennius VITAMIN B12 LEVEL 2020-07-02 16:26:00 Prath, Deondre James Me thodist Ennius LDH 2020-07-02 16:26:00 Prath, Deondre Rollins odist Ennius HAPTOGLOBIN 2020-07-02 16:26:00 Prath, Deondre Rollins odist Ennius BASIC METABOLIC PANEL 2020-07-02 16:23:00 Emilia Gutiérrez Catholic Mary ESTIMATED GFR 2020-07-02 16:23:00 Marla Emiliapalmira [facility]ins [facility] TRANSFUSE PLATELET 2020-07-02 16:11:03 Emilia Gutiérrez ethodist PHERESIS Mary TROPONIN 2020-07-02 13:18:00 Michael Cadet [facility] PROTHROMBIN TIME WITH INR 2020-07-02 13:18:00 Dariusz Maki PARTIAL THROMBOPLASTIN 2020-07-02 13:18:00 Dariusz Maki on Catholic TIME (PTT) [place] FIBRINOGEN 2020-07-02 13:18:00 Dariusz Maki HC COMPLETE BLD COUNT 2020-07-02 13:18:00 Dariusz Maki W/AUTO DIFF Vincent POC GLUCOSE 2020-07-02 13:10:00 Tio Luismatt James Meth odist [place]yson HEMODIALYSIS 2020-07-02 10:48:52 JonelShemar James Meth odist ECG 12-LEAD 2020-07-02 09:19:57 Michael Cadet Met hodist POC GLUCOSE 2020-07-02 08:56:00 Lapsia Luismatt James Meth odist [place] CREATINE KINASE, TOTAL 2020-07-02 08:53:00 Dariusz Maki on Catholic (CPK) Vincent TROPONIN 2020-07-02 08:53:00 Michael Cadet Met hodist TYPE AND SCREEN 2020-07-02 08:23:00 DiabSuhased James Meth odist PREPARE RBC 2020-07-02 08:23:00 LapsiaLuis [place] Meth odist [place] PREPARE FRESH FROZEN 2020-07-02 08:23:00 Luis Kinsey PLASMA [place] PREPARE PLATELET PHERESIS 2020-07-02 08:23:00 Emilia Gutiérrez PREPARE CRYOPRECIPITATE 2020-07-02 08:23:00 Dariusz Maki ARTERIAL BLOOD GAS 2020-07-02 06:14:00 Buddy Giovanni Khan ethodist Chen[place] POC GLUCOSE 2020-07-02 05:12:00 Luis Kinsey XR CHEST 1 VW PORTABLE 2020-07-02 05:11:21 Giovanni Goodwin on Catholic [place] TRANSFUSE FRESH FROZEN 2020-07-02 05:06:27 Luis Kinsey on Catholic PLASMA [place] TRANSFUSE RED BLOOD CELLS 2020-07-02 04:33:52 Luis Kinsey HC COMPLETE BLD COUNT 2020-07-02 02:00:00 Giovanni Goodwinist W/AUTO DIFF Chen[place] IONIZED CALCIUM 2020-07-02 02:00:00 Giovanni Goodwin odist [place] MAGNESIUM LEVEL 2020-07-02 02:00:00 Giovanni Goodwin odist [place] PHOSPHORUS LEVEL 2020-07-02 02:00:00 Giovanni Goodwin Met hodist [place] LACTIC ACID LEVEL 2020-07-02 02:00:00 Giovanni Goodwin Me thodist [place] PROTHROMBIN TIME WITH INR 2020-07-02 02:00:00 Giovanni Goodwinist [place] PARTIAL THROMBOPLASTIN 2020-07-02 02:00:00 Giovanni Goodwin on Catholic TIME (PTT) [place] COMPREHENSIVE METABOLIC 2020-07-02 02:00:00 Giovanni Goodwin Catholic PANEL [place] ESTIMATED GFR 2020-07-02 02:00:00 Giovanni Goodwin odist [place] POC GLUCOSE 2020-07-02 01:18:00 Luis Kinsey oddillon Rubi TTE COMPLETE, WO CONTRAST, 2020-07-01 22:39:09 Michael Cadet W DOPPLER ([id number]) POC GLUCOSE 2020-07-01 20:50:00 Luis Kinsey Meth odist [facility] POC GLUCOSE 2020-07-01 17:53:00 Tio [facility] Meth odist Greyson BASIC METABOLIC PANEL 2020-07-01 17:46:00 Luis Kinseyto n Catholic [place]yson MAGNESIUM LEVEL 2020-07-01 17:46:00 Tio [facility] James Meth odist [place] PHOSPHORUS LEVEL 2020-07-01 17:46:00 Randy Luismatt James Met fred Rubi PROTHROMBIN TIME WITH INR 2020-07-01 17:46:00 Luis Kinsey [place] Catholic [facility] PARTIAL THROMBOPLASTIN 2020-07-01 17:46:00 Luis Kinseyt on Catholic TIME (PTT) [facility] ESTIMATED GFR 2020-07-01 17:46:00 Tio [facility] Meth odist [facility] HC COMPLETE BLD COUNT 2020-07-01 17:45:00 Suman Rainey W/AUTO DIFF IONIZED CALCIUM 2020-07-01 17:45:00 Suman Rainey Dc thodist POC GLUCOSE 2020-07-01 16:12:00 Tio [facility] Meth odist [facility] POC GLUCOSE 2020-07-01 15:18:00 Tio [facility] Meth odist [facility] POC GLUCOSE 2020-07-01 14:19:00 Tio [facility] Meth odist [facility] POC GLUCOSE 2020-07-01 13:03:00 [facility] Meth odist [facility] BLOOD CULTURE, AEROBIC & 2020-07-01 12:11:00 Luz Mayer ANAEROBIC ECG 12-LEAD 2020-07-01 11:43:43 Michael Cadet Met beckyist LACTIC ACID LEVEL 2020-07-01 11:38:00 [facility] Me thodist [place] FIBRINOGEN 2020-07-01 11:38:00 Tio [facility] Meth odist [place] POC GLUCOSE 2020-07-01 11:38:00 [facility] Meth odist [place] BLOOD CULTURE, AEROBIC & 2020-07-01 11:29:00 Luz Mayer ANAEROBIC LDH 2020-07-01 11:29:00 Suman Rainey Me thodist HAPTOGLOBIN 2020-07-01 11:29:00 Suman Rainey Me thodist RETICULOCYTE COUNT 2020-07-01 11:29:00 Suman Rainey Catholic DIRECT SUDHA' (MARY) 2020-07-01 11:29:00 Suman Rainey on Catholic THYROID STIMULATING 2020-07-01 11:29:00 Suman Rainey n Catholic HORMONE SPUTUM CULTURE 2020-07-01 11:14:00 Luz Mayer Jacob Me thodist GRAM STAIN 2020-07-01 11:14:00 Luz Mayer Jaems Me thodist TRANSFUSE FRESH FROZEN 2020-07-01 10:23:44 Luis Kinsey on Catholic PLASMA [place] POC GLUCOSE 2020-07-01 10:17:00 Luis Kinsey Meth odist [place] CREATINE KINASE, TOTAL 2020-07-01 09:38:00 Suman Rainey (CPK) HEMODIALYSIS 2020-07-01 09:21:11 Gordon Dominguez Dc thodist COMPREHENSIVE METABOLIC 2020-07-01 09:14:00 Gordon Dominguez Catholic PANEL ESTIMATED GFR 2020-07-01 09:14:00 Gordon Dominguez Dc thodist ESTIMATED GFR 2020-07-01 09:08:40 Shemar Remy Meth odist POC GLUCOSE 2020-07-01 09:07:00 Luis Kinsey Meth odist [place] TRANSFUSE FRESH FROZEN 2020-07-01 07:51:01 Luis Kinsey on Catholic PLASMA [place] ARTERIAL BLOOD GASES PLUS 2020-07-01 07:45:00 Shemar Remy Catholic CHEM POC GLUCOSE 2020-07-01 07:12:00 Luis Kinsey Meth odist [place]yson ECG 12-LEAD 2020-07-01 06:46:52 Luis Kinsey Meth odist [place] POC GLUCOSE 2020-07-01 05:49:00 Luis Kinsey Meth odist [place] COMPREHENSIVE METABOLIC 2020-07-01 05:09:00 Giovanni Goodwin Catholic PANEL [place] ESTIMATED GFR 2020-07-01 05:09:00 Giovanni Goodwin Meth odist Chenzi PREPARE FRESH FROZEN 2020-07-01 04:58:00 EmilyLuis guzman Catholic PLASMA [place] POC GLUCOSE 2020-07-01 04:10:00 Luis Kinsey James Meth odist [place] HC COMPLETE BLD COUNT 2020-07-01 04:03:00 Giovanni Goodwin Catholic W/AUTO DIFF Chen[place] PROTHROMBIN TIME WITH INR 2020-07-01 04:03:00 Giovanni Goodwin [place] Catholic [place] PARTIAL THROMBOPLASTIN 2020-07-01 04:03:00 Giovanni Goodwin on Catholic TIME (PTT) [place] FIBRINOGEN 2020-07-01 04:03:00 Giovanni Goodwin Meth odist [place] POC GLUCOSE 2020-07-01 02:20:00 LapsiaLuis [place] Meth odist Greyson POC GLUCOSE 2020-07-01 01:43:00 LapsiaLuis [place] Meth odist Greyson POC GLUCOSE 2020-07-01 01:25:00 LapsiaLuis [place] Meth odist [place] PARTIAL THROMBOPLASTIN 2020-07-01 01:15:00 Giovanni Goodwin on Catholic TIME (PTT) [place] PROTHROMBIN TIME WITH INR 2020-07-01 01:15:00 Giovanni Goodwin Catholic [place] POC GLUCOSE 2020-07-01 01:11:00 LapsanjeevaLuis [place] Meth odist [place]yson POC GLUCOSE 2020-07-01 01:10:00 [facility] COMPREHENSIVE METABOLIC 2020-07-01 01:04:00 Giovanni Goodwin Catholic PANEL [place] MAGNESIUM LEVEL 2020-07-01 01:04:00 Giovanni Goodwin Meth odist [place] ESTIMATED GFR 2020-07-01 01:04:00 Giovanni Goodwin Meth odist [place] ECG 12-LEAD 2020-07-01 00:45:02 Giovanni Goodwin Meth odist [place] HC COMPLETE BLD COUNT 2020-07-01 00:12:00 Paulette Hamilton Catholic W/AUTO DIFF BASIC METABOLIC PANEL 2020-07-01 00:12:00 Diab Paulette mulligan Catholic ESTIMATED GFR 2020-07-01 00:12:00 Orlin De Luna Meth odist [facility]-Hsi VENOUS BLOOD GAS 2020-07-01 00:12:00 Luis Kinsey Met hodist [place]yson MAGNESIUM LEVEL 2020-07-01 00:12:00 Orlin De Luna Meth odist [facility] PHOSPHORUS LEVEL 2020-07-01 00:12:00 CalixtoStaceyOrlinvero James Met hodist [facility]-Hsi VENOUS BLOOD GAS 2020-06-30 20:17:00 Giovanni Goodwin Met hodist Felisara COMPREHENSIVE METABOLIC 2020-06-30 20:16:00 Giovanni Goodwin Catholic PANEL [place] HC COMPLETE BLD COUNT 2020-06-30 20:16:00 Giovanni Goodwin Catholic W/AUTO DIFF [place] PROTHROMBIN TIME WITH INR 2020-06-30 20:16:00 Giovanni Goodwin Catholic [place] PARTIAL THROMBOPLASTIN 2020-06-30 20:16:00 Giovanni Goodwin on Catholic TIME (PTT) [place] ESTIMATED GFR 2020-06-30 20:16:00 Giovanni Goodwin Meth odist [place] FIBRINOGEN 2020-06-30 20:16:00 Giovanni Goodwin Meth odist [place] XR CHEST 1 VW PORTABLE 2020-06-30 20:04:38 Giovanni Goodwin on Catholic [place] HEPATITIS B SURFACE 2020-06-30 19:35:00 JonelSaShemarsaleem James Catholic ANTIGEN HC COMPLETE BLD COUNT 2020-06-30 19:35:00 Giovanni Goodwin Catholic W/AUTO DIFF [place] IONIZED CALCIUM 2020-06-30 19:35:00 Giovanni Goodwin Meth odist [place] PROTHROMBIN TIME WITH INR 2020-06-30 19:35:00 Giovanni Goodwin Catholic [place] PARTIAL THROMBOPLASTIN 2020-06-30 19:35:00 Giovanni Goodwin on Catholic TIME (PTT) [place] FIBRINOGEN 2020-06-30 19:35:00 Giovanni Goodwin Meth odist [place] VENOUS BLOOD GAS 2020-06-30 19:35:00 BuddyGiovanni PREPARE PLATELET PHERESIS 2020-06-30 19:24:00 Luis Kinsey Catholic Greyson [place] < 1 HOUR 2020-06-30 19:06:04 Orlin De Luna odist [facility] Luna-[facility]si TRANSFUSE FRESH FROZEN 2020-06-30 18:48:57 Sabrina Kuo Catholic PLASMA TRANSFUSE FRESH FROZEN 2020-06-30 18:39:08 Sabrina Kuo Catholic PLASMA TRANSFUSE PLATELET 2020-06-30 18:36:06 Sabrina Kuo Catholic PHERESIS HEMODIALYSIS 2020-06-30 18:30:40 Paulette Hamilton odist CBC HEMOGRAM 2020-06-30 18:21:00 Orlin De Luna oddillon De Luna-Hsi PROTHROMBIN TIME WITH INR 2020-06-30 18:21:00 Orlin De Luna Catholic Cheng-Hsi PARTIAL THROMBOPLASTIN 2020-06-30 18:21:00 Orlin De Luna on Catholic TIME (PTT) [facility] SMEAR REVIEW 2020-06-30 18:21:00 Orlin De Luna odist [facility] Luna-[facility]si SODIUM LEVEL, SYRINGE 2020-06-30 18:20:00 Orlin De Luna Catholic Cheng-Hsi POTASSIUM, SYRINGE 2020-06-30 18:20:00 Orlin De Luna ethodist [facility] Luna-[facility]si HEMOGLOBIN, SYRINGE 2020-06-30 18:20:00 Orlin De Luna De Luna-Hsi VENOUS BLOOD GAS 2020-06-30 18:20:00 Orlin De Luna hodist Calixto-Hsi IONIZED CALCIUM 2020-06-30 18:20:00 Orlin De Luna odist De Luna-Hsi WI AN ELECTIVE 2020-06-30 17:58:29 Sabrina Kuo ethodist ENDOTRACHEAL AIRWAY TRANSFUSE RED BLOOD CELLS 2020-06-30 17:44:05 Dariusz Maki TRANSFUSE RED BLOOD CELLS 2020-06-30 17:20:33 Dariusz Maki POC BLOOD GAS, VENOUS AND 2020-06-30 17:17:00 Orlin De Luna LYVLADIMIR De Luna-Hsi SODIUM LEVEL, SYRINGE 2020-06-30 16:32:00 Orlin De Luna Catholic De Luna-Hsi ARTERIAL BLOOD GAS, 2020-06-30 16:32:00 Orlin De Luna CORRECTED De Luna-Hsi HEMOGLOBIN, SYRINGE 2020-06-30 16:32:00 Orlin De Lunaist De Luna-Hsi POTASSIUM, SYRINGE 2020-06-30 16:32:00 Orlin De Luna ethodist De Luna-Hsi MAGNESIUM LEVEL 2020-06-30 16:32:00 Orlin De Luna Meth odist De Luna-Hsi IONIZED CALCIUM, ARTERIAL 2020-06-30 16:32:00 Orlin De Luna De Luna-Hsi GLUCOSE LEVEL, SYRINGE 2020-06-30 16:32:00 Orlin De Luna on Catholic De Luna-Hsi TRANSFUSE RED BLOOD CELLS 2020-06-30 16:09:49 Dariusz Maki ARTERIAL BLOOD GAS, 2020-06-30 15:26:00 Orlin De Luna CORRECTED De Luna-Hsi POTASSIUM, SYRINGE 2020-06-30 15:26:00 Orlin De Luna ethodist De Luna-Hsi SODIUM LEVEL, SYRINGE 2020-06-30 15:26:00 Orlin De Lunaist De Luna-Hsi GLUCOSE LEVEL, SYRINGE 2020-06-30 15:26:00 Orlin De Luna on Catholic De Luna-Hsi IONIZED CALCIUM, ARTERIAL 2020-06-30 15:26:00 Orlin De Lunaist De Luna-Hsi MAGNESIUM LEVEL 2020-06-30 15:26:00 Orlin De Luna odist De Luna-Hsi HEMOGLOBIN, SYRINGE 2020-06-30 15:26:00 Orlin De Lunaist De Luna-Hsi TRANSFUSE RED BLOOD CELLS 2020-06-30 13:07:22 Dariusz Maki WI AN ELECTIVE 2020-06-30 09:21:54 Messi Diallo SUPRAGLOTTIC AIRWAY REVISION, ARTERIOVENOUS 2020-06-30 08:51:00 Orlin De Luna GRAFT, WITH ANGIOGRAPHY De Luna-Hsi POC PANEL 2020-06-30 08:48:00 CalixtoStaceyOrlin Jacob Ayo oddillon De Luna-[place] COMPREHENSIVE METABOLIC 2020-06-30 08:43:00 Orlin De Luna Catholic [facility] 2020-06-30 08:43:00 CalixtoStaceyOrlinximena James Ayo [facility] Luna-Hsi ECG PRE/POST OP 2020-06-26 13:00:11 Jacob Mcwilliams Ayo oddillon Helen Lei XR CHEST 2 VW 2020-06-26 12:22:32 Jacob Mcwilliams Ayo valladares Helen Lei TYPE AND SCREEN 2020-06-26 11:55:00 Orlin De Luna Ayo De Luna-Hs PROTHROMBIN TIME WITH INR 2020-06-26 11:55:00 Orlin De Luna [facility] COMPLETE [facility]LD [facility] 2020-06-26 11:55:00 Orlin De Luna Catholic W/AUTO DIFF [facility] HEMO[facility]IN A1C 2020-06-26 11:55:00 Jacob Mcwilliams Ayo valladares Helen Lei PARTIAL THROMBOPLASTIN 2020-06-26 11:55:00 Orlin De Luna on Catholic [facility]PTT) [facility]PARE PLATELET PHERESIS 2020-06-26 11:55:00 Orlin De Luna [facility] PREPARE FRESH FROZEN 2020-06-26 11:55:00 Orlin [facility]-19 QUALITATIVE PCR 2020-06-26 11:27:00 Orlin De Luna Catholic Cheng-Hs HEMODIALYSIS 2020-01-02 07:17:07 Shemar Remy Meth odist BASIC METABOLIC PANEL 2020-01-02 05:10:00 Pardeep Calhoun on Catholic HC COMPLETE BLD COUNT 2020-01-02 05:10:00 Pardeep Calhoun on Catholic W/AUTO DIFF ESTIMATED GFR 2020-01-02 05:10:00 Pardeep Calhoun Met hodist HC COMPLETE BLD COUNT 2020-01-01 05:00:00 Neena Doyle Catholic W/AUTO DIFF BASIC METABOLIC PANEL 2020-01-01 05:00:00 Neena Doyle Alexey Plata ESTIMATED GFR 2020-01-01 05:00:00 Orlin De Luna oddillon De Luna-Hsi HEPATITIS B SURFACE 2019-12-31 19:10:00 Elver Godoy ANTIGEN HEPATITIS B SURFACE AB, 2019-12-31 19:10:00 Elver Godoy Catholic QUANTITATIVE HEMODIALYSIS 2019-12-31 16:34:30 WaltElver vidales [place] < 1 HOUR 2019-12-31 12:50:42 Orlin De Luna oddillon De Luna-Hsi ARTERIAL BLOOD GAS, 2019-12-31 11:45:00 Orlin De Luna CORRECTED De Luna-Hsi POTASSIUM, SYRINGE 2019-12-31 11:45:00 Orlin De Luna ethodist De Luna-Hsi SODIUM LEVEL, SYRINGE 2019-12-31 11:45:00 Orlin De Luna Catholic De Luna-Hsi IONIZED CALCIUM, ARTERIAL 2019-12-31 11:45:00 Orlin De Lunaton Catholic De Luna-Hsi GLUCOSE LEVEL, SYRINGE 2019-12-31 11:45:00 Orlin De Luna on Catholic De Luna-Hsi MAGNESIUM LEVEL 2019-12-31 11:45:00 Orlin De Luna oddillon De Luna-Hsi HEMOGLOBIN, SYRINGE 2019-12-31 11:45:00 Orlin De Luna De Luna-Hsi WI AN ELECTIVE 2019-12-31 08:05:40 Zonia Arriaza SUPRAGLOTTIC AIRWAY FISTULOGRAPHY, DIALYSIS 2019-12-31 07:52:00 Orlin De Luna Catholic SHUNT, AND DECLOTTING De Luna-Hsi POC PANEL 4 2019-12-31 06:47:00 Orlin De Luna De Luna-[facility]si COMPREHENSIVE METABOLIC 2019-12-31 06:43:00 Hannah Mcwilliams Catholic PANEL Helen Lei ESTIMATED GFR 2019-12-31 06:43:00 Jacob Mcwilliams XR CHEST 2 VW 2019-12-24 11:11:18 Orlin De Luna De Luna-Hsi PARTIAL THROMBOPLASTIN 2019-12-24 10:46:00 Orlin De Luna on Catholic TIME (PTT) De Luna-Hsi PROTHROMBIN TIME WITH INR 2019-12-24 10:46:00 Orlin De Luna De Luna-[facility]si HC COMPLETE BLD COUNT 2019-12-24 10:46:00 Orlin De Luna W/AUTO DIFF De Luan-Hsi TYPE AND SCREEN 2019-12-24 10:46:00 Jacob Mcwilliams HEMOGLOBIN A1C 2019-12-24 10:46:00 Jacob Mcwilliams COVID-19 QUALITATIVE PCR 2019-12-24 10:45:00 Orlin De Luna De Luna-Hsi ECG PRE/POST OP 2019-12-24 10:37:00 Jacob Mcwilliams History of Arteriovenous Univers [facility] fistula creation procedure Physi cians Plan of Care Planned Activity Planned Date Details Comments Source Future Scheduled 2021-03-21 INFLUENZA VACCINE Alexey mulligan Catholic Test 00:00:00 [code = INFLUENZA VACCINE] Future Scheduled 2008 Hepatitis C Jacob Kathleen hodist Test 00:00:00 screening (procedure) [code = 024924478] Future Scheduled 2006 COVID-19 VACCINE (1) Imelda rubio Catholic Test 00:00:00 [code = COVID-19 VACCINE (1)] Encounters Start End Encounter Admission Attending Care Care Encounter Source Date/Time Date/Time Type Type Clinicians Facility Department ID 2020-02-05 Outpatient [facility] CAR [id number] MH HH 15:03:55 2019-09-19 Outpatient [facility] PUL [id number] MH HH 13:33:11 2019-02-13 Outpatient [facility] CAR [id number] MH HH 15:11:59 2019-01-07 Outpatient [facility] PUL [id number] MH HH 15:14:45 2018-11-26 Inpatient [facility] [id number] MHH H 15:57:49 2018-11-26 Outpatient [facility] CAR [id number] MH HH 15:57:24 2020-12-03 2020-12-03 Appointmen BEE MOYER UTP Urology - [id number] Univers 15:00:00 15:00:00 t; Svaita MOYER M.D. [facility] Physici ans 2020-12-02 2020-12-02 Appointmen NAZANIN PAYNE [facility] [id number] Univers 13:00:00 13:00:00 t; FLACA PAYNE M.D. cic & i ty of Savita TH[place] [facility] [place] - Physic i [facility] 2020-12-02 2020-12-02 Appointmen VASCULAR, [facility] [id number] Univers 08:00:00 08:00:00 t; [facility] 2020-11-04 2020-11-04 Outpatient [facility] [id number] [facility] 11:00:00 11:00:00 2020-10-20 2020-10-20 AppointBEE Valdez UTP [facility] [id number] [facility] 13:30:00 13:30:00 t; Savita MOYER M.D. [place] Physici ans 2020-10-15 2020-10-13 Inpatient [facility] MED [id number] [facility] 11:21:00 07:37:00 2020-10-13 2020-10-13 AppointBEE Valdez UTP [facility] [id number] Univers 07:30:00 07:30:00 t; Savita MOYER M.D. [place] Physici ans 2020-09-17 2020-09-17 Outpatient [facility] [id number] [place] 00:00:00 00:00:[address] 2020-08-27 2020-08-27 Outpatient [facility] [id number] 520 [place] 00:00:00 00:00:00 ORLIN [address] 2020-08-18 2020-08-18 Appointmen [facility]ODYNAMICS [facility] [id number] Univers 13:15:00 13:15:00 t; , PROVIDER ity of URODYNAMIC [place] S, Physici PROVIDER ans 2020-08-18 2020-08-18 Appointmen BEE MOYER, UTP UTP [id number] [facility] 13:15:00 13:15:00 t; Savita MOYER M.D. [place] Physici ans 2020-07-23 2020-07-23 Outpatient CALIXTO [facility] [id number] 290 [place] 00:00:00 00:00:00 ORLIN [address] 2020-06-30 2020-07-12 Inpatient JOGLEKAR, [facility] [id number] [place] 00:00:00 00:00:00 JASON [address] 2020-06-26 2020-06-26 Outpatient CALIXTO [facility] [id number] [place] 00:00:00 00:00:00 ORLIN [address] 2020-06-26 2020-06-26 Outpatient WOJCIECHOWS [facility] [id number] [place] 00:00:00 00:00:00 KI, [address] 2020-06-24 2020-06-24 Outpatient CALIXTO [facility] [id number] 724 [place] 00:00:00 00:00:00 ORLIN [address] 2020-05-21 2020-05-21 Outpatient [facility] [id number] [facility] 14:05:00 14:05:00 2020-04-07 2020-04-07 Appointmen ORGANTRANSP [facility] UTP [id number] [facility] 08:30:00 08:30:00 t; Diana o f ORGANTRANS [place] PLANT, OP Physic i ans 2020-04-07 2020-04-07 Outpatient MHH [facility]HH [id number] [facility] 07:35:00 07:35:00 2020-02-07 2020-02-07 Outpatient MHSE PUL [id number] 19:19:00 19:19:00 [facility] 2020-01-28 2020-01-28 Outpatient [facility] PUL [id number] [facility] 13:30:00 13:30:00 2020-01-23 2020-01-23 Outpatient CALIXTO [facility] [id number] [place] 00:00:00 00:00:00 ORLIN [address] 2020-01-21 2020-01-21 Outpatient [facility] CAR [id number] [facility] 08:02:00 08:02:00 2019-12-31 2020-01-02 Inpatient UNIQUE, [facility] [id number] [place] 00:00:00 00:00:00 PARDEEP 602 Method i 2019-12-24 2019-12-24 Outpatient CALIXTO, [facility] [id number] [place] 00:00:00 00:00:00 ORLIN 885 Method i 2019-12-24 2019-12-24 Outpatient CALIXTO [facility] [id number] [place] 00:00:00 00:00:00 ORLIN 918 Method i 2019-12-24 2019-12-24 Outpatient CALIXTO, [facility] [id number] [place] 00:00:00 00:00:00 ORLIN 545 Method i 2019-12-19 2019-12-19 Outpatient CALIXTO, [facility] [id number] [place] 00:00:00 00:00:00 ORLIN 712 Method i 2019-09-19 2019-09-19 Outpatient [facility] CAR 7523 [facility] 13:19:00 13:19:00 2019-04-30 2019-04-30 Outpatient [facility] CAR 7522 [facility] 09:57:00 09:57:00 2019-04-02 2019-04-02 Outpatient [facility] CAR [id number] [facility] 08:29:00 08:29:00 2019-02-14 2019-02-14 Outpatient [facility] CAR [id number] [facility] 13:21:00 13:21:00 Results Test Description Test Time Test Comments Results Result Comments Source [QL] CMP W/EGFR 2020-12-03 15:19:00 Test Item Value Reference Range Interpretation Comme nts GLUCOSE; Normal (test code 89 mg/dl 65-99 N F asting reference interval = 1547-9) UREA NITROGEN (BUN) (test 32 mg/dl 7-25 code = UREA NITROGEN (BUN)) CREATININE (test code = 7.49 mg/dl 0.60-1.35 CREATININE) eGFR NON-AFR. [place] 9 {ML/MIN/1.7} See_Comment [A utomated message] The (test code = eGFR NON-AFR. s ystem which generated this [place]) result transmit hailey reference range : > OR = 60. The reference r branden was not used to interpr et this result as jodee l/abnormal. eGFR (test 10 {ML/MIN/1.7} See_Comment [Automated message] The code = eGFR system w [facility] generated this [place]) result transmit hailey reference range : > OR = 60. The reference r branden was not used to interpr et this result as jodee l/abnormal. BUN/CREATININE RATIO (test 4 {CALC} 6-22 code = BUN/CREATININE RATIO) SODIUM (test code = SODIUM) 139 mmol/L 135-146 N POTASSIUM (test code = 4.4 mmol/L 3.5-5.3 N POTASSIUM) CHLORIDE (test code = 99 mmol/L 98-110 N CHLORIDE) CARBON DIOXIDE (test code = 28 mmol/L 20-32 N CARBON DIOXIDE) CALCIUM (test code = 9.7 mg/dl 8.6-10.3 N CALCIUM) PROTEIN, TOTAL (test code = 7.6 g/dl 6.1-8.1 N PROTEIN, TOTAL) ALBUMIN (test code = 4.0 g/dl 3.6-5.1 N ALBUMIN) GLOBULIN (test code = 3.6 {G/DL CALC} 1.9-3.7 N GLOBULIN) ALBUMIN/GLOBULIN RATIO 1.1 {CALC} 1.0-2.5 N (test code = ALBUMIN/GLOBULIN RATIO) BILIRUBIN, TOTAL; Normal 0.6 mg/dl 0.2-1.2 N (test code = 16962-7) ALKALINE PHOSPHATASE (test 66 u/l 36-130 N code = ALKALINE PHOSPHATASE) AST; Normal (test code = 10 u/l 10-40 N 1916-6) ALT; Below Low Threshold 3 u/l 9-46 (test code = 1742-6) [facility] Physicians[QL] CBC (INCLUDES DIFF/PLT)2020-12-03 15:19:00 Test Item Value Reference Range Interpretation Comments WHITE BLOOD CELL COUNT 3.6 {Thousand/u} 3.8-10.8 (test code = WHITE BLOOD CELL COUNT) RED BLOOD CELL COUNT (test 3.38 {Million/uL} 4.20-5.80 code = RED BLOOD CELL COUNT) HEMOGLOBIN; Below Low 9.9 g/dl 13.2-17.1 Threshold (test code = 20707-9) HEMATOCRIT; Below Low 30.3 % 38.5-50.0 Threshold (test code = 4544-3) MCV; Normal (test code = 89.6 fL 80.0-100.0 N 787-2) MCHC; Normal (test code = 32.7 g/dl 32.0-36.0 N 60181-3) RDW; Above High Threshold 15.7 % 11.0-15.0 (test code = 788-0) PLATELET COUNT; Normal 207 {Thousand/u} 140-400 N (test code = 777-3) MPV; Normal (test code = 10.7 fL 7.5-12.5 N 60998-9) ABSOLUTE NEUTROPHILS (test 1940 {cells/uL} 9332-7406 N code = ABSOLUTE NEUTROPHILS) ABSOLUTE LYMPHOCYTES (test 796 {cells/uL} 850-3900 code = ABSOLUTE LYMPHOCYTES) ABSOLUTE MONOCYTES (test 508 {cells/uL} 200-950 N code = ABSOLUTE MONOCYTES) ABSOLUTE EOSINOPHILS (test 328 {cells/uL} 15-500 N code = ABSOLUTE EOSINOPHILS) ABSOLUTE BASOPHILS (test 29 {cells/uL} 0-200 N code = ABSOLUTE BASOPHILS) NEUTROPHILS (test code = 53.9 % N NEUTROPHILS) LYMPHOCYTES (test code = 22.1 % N LYMPHOCYTES) MONOCYTES; Normal (test 14.1 % N code = 16174-8) EOSINOPHILS; Normal (test 9.1 % N code = 29791-5) BASOPHILS; Normal (test 0.8 % N code = 91527-8) REPORT COMMENT:PATIENT UNABLE TO VOID; ADVISED TO RETURN FOR COLLECTION. [facility]iciansAct[facility] [id number] 09:53:05 Test Item Value Reference Range Interpretation Comments Activated clotting time 108 See_Comment ACT OR METER ID: (test code = 5298) [id number] rator: Yoel Swenson [Autom ated message] The sy stem which generated this result transmitted ref erence range: 96 - 152 sec. The reference range was not used to interpr et this result as normal/abnormal . Jacob PlataXR Chest 1 Vw [id number] 07:00:30Hm Interface, Radiology Results - 07/09/2020 7:03 AM CST EXAMINATION: XR CHEST 1 VW PORTABLECLINICAL HISTORY: 29 years Male ICU pt stable with no clinical status changesCOMPARISON: 07/08/2020IMPRESSION:1.Interval extubation and removal of nasogastric tube.2.The cardiomediastinal silhouette is stable.3.There is mild vascular congestion. There is focal developing infiltrate in the periphery of the right lower lung zone.4.There is no pneumothorax or significant pleural effusion. [facility]-[id number] MethodistOR [place] < 1 [id number] 23:16:20Hm Interface, Radiology Results Incoming - 07/08/2020 11:19 PM CST EXAMINATION: [place] < 1 HOURCLINICAL HISTORY: VascularIMPRESSION:Fluoroscopy provided to the ordering service. A radiologist was not present.Total fluoroscopy time: 15 min brett(s)Image(s) acquired: 122.Please refer to procedural report for discussion of procedure and findings.[id number] MethodistXR Abdomen 1 Jq0186-31-27 16:41:08Hm Interface, Radiology Results Incoming - 07/08/2020 4:44 PM CST EXAMINATION: XR ABDOMEN 1 VWCLINICAL HISTORY: og tubeCOMPARISON: July 02IMPRESSION:OG tip is within the gastric body. Femoral central line tip overlies the right L4 pedi ambika. The visualized lung bases are clear. Exam is otherwise limited.[facility]-5NV1957OLUVbmbtgw MethodistPrepare fresh frozen qafsuc8642-84-55 15:22:00 Test Item Value Reference Range Interpretation Comments Product name (test code Thawed Plasma = 25) Unit number (test code [id number] = [id number]) Product code (test code A9903Y08 = 3092) Dispense status (test Returned to not code = 24) transfused Blood expiration date (test code = 302) Blood type code (test 6200 code = 308) Blood type (test code = A POSITIVE 1314) Compatibility (test Not required code = 6400) [place] MethodistPrepare platelet cxsjlrpf6658-29-25 13:08:00 Test Item Value Reference Range Interpretation Comments Product name (test code Apheresis Platelet = 25) ACDA LRIRR #1 Unit number (test code [id number] = [id number]) Product code (test code O6908U84 = 3092) Dispense status (test Transfused code = 24) Blood expiration date [id number] (test code = 302) Blood type code (test 6200 code = 308) Blood type (test code = A POSITIVE 1314) Compatibility (test Not required code = 6400) [place] MethodistGlucose level, ozizmpi0460-68-23 12:56:17 Test Item Value Reference Range Interpretation Comments Glucose, syringe (test code = 107 mg/dL 65-99 H 2345-7) Lab Interpretation (test code = Abnormal 65248-7) [place] MethodistIonized calcium, staznrgg0324-65-40 12:56:17 Test Item Value Reference Range Interpretation Comments Ionized calcium, arterial (test 1.00 mmol/L 1.11-1.32 L code = 67032-1) Lab Interpretation (test code = Abnormal 90676-5) [place] MethodistPotassium, mtwpwgb1080-08-89 12:56:17 Test Item Value Reference Range Interpretation Comments Potassium, syringe (test 5.7 See_Comment H [A utomated message] code = 2007) The system [facility] generated this result transmitted ref erence range: 3.5 - 5. 0 mEq/L. The refe rence range was not u sed to interpret this result as normal/abnor mal. Lab Interpretation (test Abnormal code = 78249-2) [place] MethodistSodium level, ovniwet9764-52-90 12:56:17 Test Item Value Reference Range Interpretation Comments Sodium, syringe (test 128 See_Comment [Auto mated message] The code = 2947-0) system which generated this result tra nsmitted reference range : 125 - 148 mEq/L. The refe rence range was not used to interpret this result as normal/abnormal . [place] MethodistArterial blood gas, vrfbkqesr9782-54-21 12:48:07 Test Item Value Reference Range Interpretation Comments pH, arterial (test code 7.40 7.35-7.45 = 2744-1) pCO2, arterial (test 38 See_Comment [Autom ated message] code = 2019-) The system [facility] generated this result transmitted ref erence range: 35 - 45 mmHg. The reference r branden was not used to interpret this result as normal/abnor mal. pO2, arterial (test code 216 See_Comment H [A utomated message] = 2703-7) The system whic h generated this result transmitted ref erence range: 80 - 90 mmHg. The reference r branden was not used to interpret this result as normal/abnor mal. Temperature, Celsius 37.0 Degrees C (test code = 8310-5) O2 saturation, arterial 100 % 95-100 (test code = 2708-6) pH, arterial corrected 7.40 (test code = 97507-1) pCO2, arterial corrected 38 mmHg (test code = 93623-6) pO2, arterial corrected 216 mmHg (test code = 78617-1) Base excess, arterial -1 See_Comment [Auto mated message] (test code = 1925-7) The sys tem which generated this result transmitted ref erence range: -2 - 2 m Eq/L. The reference r branden was not used to interpret this result as normal/abnor mal. Lab Interpretation (test Abnormal code = 27414-2) [place] MethodistHemoglobin, [id number] 12:48:07 Test Item Value Reference Range Interpretation Comments Hemoglobin, syringe (test code = 8.7 g/dL 14.0-18.0 L 718-7) Lab Interpretation (test code = Abnormal 70486-7) Jacob MethodistArterial [id number] 07:57:36MoralMessi berry 07/08/2020 7:58 AMArterial linePerformed by: Messi DialloAuthorized by: Dariusz Maki MD Staff: Anesthesiologist: Dariusz Maki MD Resident/SCHOOL SOCIAL WORKER/AA: Messi Diallo Performed by: AnesthesiologistPre- procedure: patient identified, IV checked, site and side verified, risks and benefits discussed, procedure verified, surgical consent complete, patient position confirmed, monitors and equipment checked, pre-op evaluation complete and timeout performedprior to procedure MSBT: antiseptic used, all elements of maximal sterile barrier technique followed, hand hygiene performed, cap/gown used by other personnel and solutions labeled Indications: Indications: hemodynamic monitoring Anesthesia: Anesthesia: GeneralProcedure Details: Arterial Line placement: Placed post induction Line placement site: RadialLine placement side: Right Arterial line gauge: 20 GNumber of attempts: 1 Ultrasound guidance used: Yes Post-procedure: Post-procedure: Sterile dressing applied Post procedure circulation, sensation, movement: Unable to assessPatient tolerance: Patient tolerated the procedure well with no immediate complications[place] UjhoncurtDbyuug1550-65-25 07:56:37MoMessi valdez 07/08/2020 8:17 AMAirwayPerformed by: Messi DialloAuthorized by: Wong Maki MD Location: ORUrgency: ElectiveDifficult Airway: No Anesthesiologist: Dariusz Maki, FATOUesident/SCHOOL SOCIAL WORKER/AA: Messi DialloPerformed by: resident/SCHOOL SOCIAL WORKER/AAPreoxygenated with 100% O2: Yes C-spine Precautions Maintained Throughout: Yes Mask Ventilation: Easy maskFinal Airway Type: Endotracheal airwayFinal Endotracheal Airway: ETTCuffed: Yes Technique Used: Video laryngoscopy (Elective use)Insertion Site: OralBlade Type: Cesia (Glidescope S4)Laryngoscope Blade/Videolaryngoscope Blade Size: 4ETT Size (mm): 7.0Cuff at minimum occlusion pressure: Yes Measured from: LipsETT to Lips (cm): 24Placement Verified by: CO2 detection and direct visualization Laryngoscopic view: Grade I - full view of glottisRapid Sequence Induction (RSI): No Modified RSI: No Number of Attempts at Approach: [address] [place] [address] 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 Michael Cadet Indication: Patient suffered non-ST segment elevation myocardial infarction Procedure note: Patient was taken to cardiac cath laboratory. Right radial artery was inserted with a #6 Mongolian slender sheath under ultrasound guided puncture. A #5 Mongolian [place] catheter was used coronaryangiography was performed. This catheter was replaced with a #5 Mongolian pigtail catheter and left ventriculogram was performed. Procedure was terminated and TR band was applied to right radial artery with a good hemostasis. Patient left the [employer] [facility] in stable condition. Cineangiogram: Left main is free of disease and bifurcates into left anterior descending and circumflex artery. LAD and diagonal branches are free of disease. Circumflex and OM branches are free of disease. Right coronary arteryis a large and dominant vessel. RCA, posterior descending and posterior lateral branch are free of disease. Left ventriculogram revealed a normal left ventricle systolic function with EF of 65%. Regional wall motion of left ventricle is normal. There is no mitral regurgitation noted. Impression: 1normal coronary arteries2 normal left ventricular systolic functionFort [facility] duplex [facility] upper extremity 2020-07-04 15:27:51Hm Interface, Radiology Results 07/04/2020 3:30 PM CST EXAM: Right upper extremity arterial DopplerHISTORY: Arm swelling and painTECHNIQUE: Real- time as well as pulsed and color Doppler evaluation of the right common carotid, subclavian, axillary, brachial, radial, and ulnar arteries are evaluated. Examination includes full duplex Doppler scan of the blood vessels (real-time B mode grayscale, Doppler spectral analysis, and Doppler color flow imaging).IMPRESSION:Grossly patent right upper extremity arteries with normal velocities and waveforms.FINDINGS:PEAK SYSTOLIC VELOCITIES: CCA: 97cm/sSUBCLAVIAN 84 cm/sAXILLARY: 97 cm/sBRACHIAL:Proximal: 105 cm/sMid: 107 cm/sDistal: 107 cm/sRADIAL AT WRIST: 95 cm/sULNAR AT WRIST: 74 cm/sDOPPLER WAVEFORMSSUBCLAVIAN: TriphasicAXILLARY: TriphasicBRACHIALProximal: TriphasicMid: TriphasicDistal: TriphasicRADIAL ARTERY AT WRIST: TriphasicULNAR ARTERY AT WRIST: TriphasicHM-[id number] MethodistUs duplex venous upper crmhxdtzq5397-49-77 15:25:21Hm Interface, Radiology Results 07/04/2020 3:28 PM CST EXAMINATION: [place] DUPLEX VENOUS UPPER EXTREMITY RIGHTCLINICAL HISTORY: 29years Male Arm swelling or pain DVT suspectedCOMPARISON: None.TECHNIQUE: Grayscale, color Doppler, and spectral waveform analysis of the right upper extremity deep venous system was performed.FINDINGS:The right internal jugular vein demonstrates normal flow and compressibility. The right subclavian, axillary, brachial, basilic, cephalic, and forearm veins reveal no evidence of thrombosis. The veins demonstrate normal Doppler flow and normal compressibility.Left subclavian vein is obscured by over lying bandagesIMPRESSION:Normal right upper extremity venous Doppler examination. No sonographic evidence of deep venous thrombosis of the right upper extremity.James MethodistECG 12 xptj8256-00-09 18:17:10 Test Item Value Reference Range Interpretation Comments Ventricular rate (test 82 code = 253) Atrial rate (test code 82 = 255) WI interval (test code 148 = 266) QRSD interval (test 104 code = 260) QT interval (test code 406 = 264) QTC interval (test code 474 = 265) P axis 1 (test code = 65 267) QRS axis 1 (test code = 82 268) T wave axis (test code 268 = 270) EKG impression (test Normal sinus code = 273) rhythm-Septal infarct , age undetermined-T wave abnormality, consider inferior ischemia-Abnormal ECG-In automated comparison with ECG of 01-JUL-2020 11:43,-Sinus rhythm has replaced Ectopic atrial ugyheb-Ysm-dyhkpvfe change in ST segment in Inferior leads-ST no longer depressed in Lateral leads-T wave inversion now evident in Inferior leads- [place] MethodistArterial Line Hrbymbdxd1962-47-99 16:52:23Laura Deleon NP 07/02/2020 4:54 PMArterial Line Insertion Date/Time: 07/02/2020 4:52 PMPerformed by: Laura Deleon NPAuthorized by: Laura eDleon NP Consent: Consent obtained: Written Consent given by: Healthcare agent Risks discussed: Bleeding, ischemia, repeat procedure, pain and infectionIndications: Indications: hemodynamic monitoring Pre-procedure de tails: Skin preparation: 2% Chlorhexidine Preparation: Patient was prepped and draped in sterilefashion Anesthesia (see MAR for exact dosages): Anesthesia method: Local infiltration Local anesthetic: Lidocaine 1% w/o epiProcedure details: Location: R radial Allan's test performed: yes Allan's test abnormal: no Needle gauge: 20 G Placement technique: Seldinger Ultrasound guidance: yes Number of attempts: 1 Transducer: waveform confirmed Post-procedure details: Post-procedure: Biopatch applied and sutured Patient tolerance of procedure: Tolerated well, no immediate complicationsComments: Right radial artery accessed with first stick. Bright red, pulsatile blood returned. Guidewire passed easily. Arterial catheter inserted using Seldinger tech. Bright red blood again returned. Good waveform on monitor. Tolerated procedure well. handling tech maintained.[facility] RenaissanceTransthoracic Echocardiogram Complete, (w Contrast, Strain and 3D if needed)2020-07-02 08:37:28 Test Item Value Reference Range Interpretation Comments Ao Root Diameter (test 2.83 cm code = 7894733082) AoV Area, Vmax (test 4.17 cm2 code = 2178442625) AoV Area, VTI (test 3.99 cm2 code = 2082535163) AoV Mean PG (test code 4.39 mmHg = 3490714226) AoV Peak PG (test code 6.31 mmHg = 8775873347) AoV Vmax (test code = 1.40 m/s 9832608983) AoV VTI (test code = 0.20 m 8244088676) IVS,d (test code = 1.82 cm 1787557136) IVS/LVPW,2D (test code 1.08 = 6865806739) Left Atrium Dimension 2.60 cm Anterior (test code = 5605807108) LV,d (test code = 4.35 cm 2144774869) LV EF,2D (test code = 62.08 % 5816445462) LV,s (test code = 3.15 cm 4171473123) LVOT area (test code = 4.15 cm2 6793454139) LVOT Diam,S (test code 2.30 cm = 2513946643) LVOT Vmax (test code = 1.26 m/s 9701775453) LVOT VTI (test code = 0.18 m 9702833958) LVPWD,d (test code = 1.69 cm 2765605965) PV Pk Grad (test code = 5.05 mmHg 2205699328) PV VMAX (test code = 1.12 m/s 3390205095) RVOT Vmax (test code = 1.05 m/s 6241331320) RVSP (TR) (test code = 32.85 mmHg 2718465260) TR Vpeak (test code = 2.81 mm/s 6252815172) MV E A ratio (test code 1.02 = 6875344144) RA pressure (test code 10.00 mmHg = 5863477824) TR pk grad (test code = 22.85 mmHg 0113130865) E wave decelartion time 219.47 msec (test code = 6853484291) MV Peak A Joseph (test 0.50 m/s code = 6423866243) MV valve area p 1/2 3.46 cm2 method (test code = 3281457013) MV Peak E Joseph (test 0.51 m/s code = 5019879820) MV stenosis pressure 63.65 ms 1/2 time (test code = 4011576091) AV LVOT peak gradient 6.38 mmHg (test code = 0275863889) RVSP (test code = 32.85 mmHg 5526430930) Ao Root Diameter (test 2.83 cm code = 9532513773) MV mean gradient (test 2.38 mmHg code = 7097251358) LV SYS VOL (test code = 39.48 ml 0717607675) LV DUMONT VOL (test code 85.57 ml = 2702836948) LA area s A4C (test 12.64 cm2 code = 8595645897) LV SV Teich 2D (test 46.10 ml code = 5864812019) LV Vol s Teich PSAX 39.48 ml (test code = 2243016679) MR peak grad (test code 8.01 mmHg = 6068713060) MV Vmax (test code = 1.41 m 5970848425) MV VTI Tips (test code 0.24 m = 1708707068) RVOT pk grad (test code 4.42 mmHg = 8731814689) AoV Vmn (test code = 0.98 2129094080) LV FS Teich 2D (test 27.62 code = 2713559426) MV AE ratio (test code 0.98 = 9333118398) LV FS Cube 2D (test 27.62 code = 0723444804) LVOT Vmn (test code = 0.73 8468719880) Aov area Vmn (test code 3.45 cm2 = 3836778879) LVOT mean grad (test 2.61 mmHg code = 1822508551) MAX Pred HR (test code 190.47 = 4260020407) 85 of MPHR (test code = 161.90 5689108295) Calc MPHR (test code = 190.47 bpm 6929765735) LV SV Cube 2D (test 51.26 ml code = 8638075954) LV vol d cube 2D (test 82.57 ml code = 6586938996) LV vol s cube 2D (test 31.31 ml code = 4867559850) MV Decel slope (test 2.34 m/s2 code = 7279863262) Pred Exer Dur R1 (test 13.38 code = 9223072760) Pred METS R1 (test code 13.57 = 5595228951) LA Vol MOD A4C (test 25.06 ml code = 5240623155) Velocity Ratio (V1/V2) 0.90 m/s (test code = 4689) EF (test code = 53.86 % 8777365040) E/A ratio (test code = 1.02 3955471355) YE (test code = YE) Left ventricular systolic function is in low normal. There is moderate left ventricular Left Ventricular ejection fraction is 50 - 55%. Normal left ventricular regional wall motion Normal right ventricular size, wall thickness and global function Mitral valve appears normal Mild tricuspid valve regurgitation. Normal pulmonary artery systolic pressure. Aortic valve appears normal and trileaflet. No pericardial effusion seen [place] WqmmmrzndXihxml4108-72-63 17:58:29Sabrina Kuo CRNA 06/30/2020 5:59 PMAirwayPerformed by: Sabrina Kuo CRNAAuthorized by: Dariusz Maki MD Location: ORUrgency: ElectiveDifficult Airway: No Preoxygenated with 100% O2: Yes C-spine Precautions Maintained Throughout: Yes Mask Ventilation: Not attemptedFinal Airway Type: Endotracheal airwayFinal Endotracheal Airway: ETTCuffed: Yes Technique Used: Video laryngoscopyDevices/Methods Used in Placement: Intubating styletInsertion Site: OralBlade type: Video Largyngoscope.ETT Size (mm): 8.0Cuff at minimum occlusion pressure: Yes Measured from: LipsETT to Lips (cm): 24Placement Verified by: CO2 detection and direct visualization Laryngoscopic view: Grade IIb - view of arytenoids or posterior of glottis onlyRapid Sequence Induction (RSI): No Modified RSI: No Number of Attempts at Approach: 3 or more Removed LMA. DL x 2 - once with Hendrickson 2, once with 3, with grade III view. Replaced LMA, then used glidescope. O2 sat >95% throughout.[facility] MethodistAirway 2020-06-30 09:21:54MoMessi valdez 06/30/2020 9:22 AMAirway Date/Time: 06/30/2020 9:00 AMPerformed by: Messi DialloAuthorized by: Dariusz Maki MD Location: ORUrgency: ElectiveDifficult Airway: No A nesthesiologist: Dariusz Maki, MDResident/SCHOOL SOCIAL WORKER/AA: Messi DialloPerformed by: resident/SCHOOL SOCIAL WORKER/AAPreoxygenated with 100% O2: Yes C-spine Precautions Maintained Throughout: Yes Mask Ventilation: Easy maskFinal Airway Type: Supraglottic airwayFinal LMA: I-GelLMA Size: 5Number of Attempts at Approach: 1[facility] MethodistECG Pre/Post [id number] 09:46:58 Test Item Value Reference Range Interpretation Comments Ventricular rate (test 70 code = 253) Atrial rate (test code 70 = 255) WI interval (test code 166 = 266) QRSD interval (test 92 code = 260) QT interval (test code 414 = 264) QTC interval (test code 447 = 265) P axis 1 (test code = 50 267) QRS axis 1 (test code = 72 268) T wave axis (test code 66 = 270) EKG impression (test Normal sinus code = 273) rhythm-Normal ECG-In automated comparison with ECG of 24-DEC-2019 10:37,-No significant change was found- [place] MethodistXR Chest 2 [id number] 12:29:47Hm Interface, Radiology Results Incoming - 06/26/2020 12:32 PM CST EXAMINATION: XR CHEST 2 VWCLINICAL HISTORY: Z01.818 Encounter for other preprocedural examination, PRE OPCOMPARISON: December 24, 2019 1108 hoursTECHNIQUE: Frontal and lateral views of the chest obtained.IMPRESSION:Cardiomegaly is similar to before. The cardiothoracic ratio is 19.1/31.0.Bilateral perihilar peribronchial cuffing, interstitial prominence, and ground-glass opacification suggest mild edema.Trace pleural effusions. No pneumothorax.No acute or suspicious osseous lesion is identified.[id number] [place] FmgfrrhssPbcaux1339-82-48 08:05:40Zonia Arriaza CRNA 12/31/2019 8:06 AMAirwayDate/Time: 12/31/2019 8:04 AMPerformed by: Zonia Arriaza CRNAAuthorized by: Helen Mcwilliams MD Location: ORUrgency: ElectiveDifficult Airway: No Anesthesiologist: Helen Mcwilliams MDResident/SCHOOL SOCIAL WORKER/AA: Zonia Arriaza CRNAPerformed by: resident/SCHOOL SOCIAL WORKER/AAPreoxygenated with 100% O2: Yes C-spine Precautions Maintained Throughout: Yes Mask Ventilation: Not attemptedFinal Airway Type: Supraglottic airwayFinal LMA: I-GelLMASize: 5Number of Attempts at Approach: 1[facility]
[2020-12-19 14:29] LABS: Absolute Lymphocytes (CBC) 0.5 K/uL (0.7-4.9); Basophils % 0.3 % (0-1.3); Hematocrit 35.7 % (39.6-49.0); Lymphocytes % 7.4 % (15.3-44.8); MPV 7.8 fL (7.6-11.3); RBC Red Blood Cell Count 4.06 M/uL (4.33-5.43)
[2020-12-19 14:46] LABS: Albumin 3.5 g/dL (3.4-5.0); Bilirubin Direct 0.2 mg/dL (0-0.2); Bilirubin Total 0.6 mg/dL (0.2-1.0); Potassium 4.2 mmol/L (3.5-5.1); Protein, Total 8.1 g/dL (6.4-8.2)
--- NOTE | 2020-12-19 14:55 | ER ---
Nurse's Notes [facility] Name: Clyde Juárez Age: 29 yrs Sex: Male : 1990 Arrival Date: 12/19/2020 Time: 12:34 Bed 5 Private MD: Diagnosis: Acute Gastroenteritis Presentation: 12/19 12:42 Chief complaint: Patient states: RLQ pain, vomiting and diarrhea that began yesterday. ss Coronavirus screen: Client denies travel out of the [place] in the last 14 days. Ebola Screen: Patient denies exposure to infectious person. Patient denies travel to an Ebola-affected area in the 21 days before illness onset. Initial Sepsis Screen: Does the patient meet any 2 criteria? No. Patient's initial sepsis screen is negative. Does the patient have a suspected source of infection? No. Patient's initial sepsis screen is negative. Risk Assessment: Do you want to hurt yourself or someone else? Patient reports no desire to harm self or others. Onset of symptoms was December 18, 2020. 12:42 Method Of Arrival: Ambulatory ss 12:42 Acuity: ROSSY 3 ss Historical: - Allergies: 12:44 No Known Allergies; ss - PMHx: 12:44 DIALYSIS MWF; ESRD; Hypertension; ss - PSHx: 12:44 pins put in right thumb; fistula left upper arm; ss - Immunization history:: Adult Immunizations unknown. - Social history:: Smoking status: Patient denies any tobacco usage or history of. Screenin:12 Abuse screen: Denies injuries from another. Abuse screen: Denies threats or abuse. kg Nutritional screening: No deficits noted. Tuberculosis screening: No symptoms or risk factors identified. Fall Risk None identified. Assessment: 14:20 General: Appears in no apparent distress. Behavior is calm, cooperative, appropriate kg for age, quiet. Pain: Denies pain. Neuro: No deficits noted. Cardiovascular: No deficits noted. Respiratory: No deficits noted. GI: Abdomen is flat, Bowel sounds present X 4 quads. Reports diarrhea, nausea, vomiting. : No deficits noted. EENT: No deficits noted. Derm: No deficits noted. Musculoskeletal: No deficits noted. Vital Signs: 12:42 BP 166 / 116; Pulse 73; Resp 16; Temp 98.0(TE); Pulse Ox 100% on R/A; Weight 97.52 kg; Height 6 ft. 2 in. (187.96 cm); Pain 8/10; 15:11 BP 172 / 102; Pulse 89; Resp 16; Pulse Ox 98% on R/A; kg 12:42 Body Mass Index 27.60 (97.52 kg, 187.96 cm) ED Course: 12:34 Patient arrived in ED. as 12:43 Triage completed. ss 12:44 Arm band placed on right wrist. 13:17 Urbano Felix PA is PHCP. jr8 13:17 Elan Harman MD is Attending Physician. jr8 13:23 Ann Marie Harrell is Primary Nurse. kg 14:20 Missed attempt(s): 22 gauge in left forearm. Bleeding controlled, band aid applied, ca1 catheter tip intact. 14:24 Initial lab(s) drawn, by me, sent to lab. Inserted saline lock: 22 gauge in left ca1 antecubital area, using aseptic technique. Blood collected. 15:11 IV discontinued, intact, bleeding controlled, No redness/swelling at site. Pressure kg dressing applied. 15:13 Patient has correct armband on for positive identification. Bed in low position. Call kg light in reach. Side rails up X 1. 15:13 No provider procedures requiring assistance completed. kg Administered Medications: No medications were administered Outcome: 14:54 Discharge ordered by . jr8 15:22 Discharged to home ambulatory. kg 15:22 Condition: good 15:22 Discharge instructions given to patient, significant other, Instructed on discharge instructions, follow up and referral plans. Demonstrated understanding of instructions, follow-up care, medications, Prescriptions given X 2. 15:22 Patient left the ED. kg Signatures: Fallon Ornelas Shelby, RN RN Urbano Felix PA PA jr8 Angie Ortiz RN RN ca1 Ann Marie Harrell kg
--- NOTE | 2020-12-19 14:55 | EDPHYS ---
Physician Documentation [facility] Name: Clyde Juárez Age: 29 yrs Sex: Male : 1990 Arrival Date: 12/19/2020 Time: 12:34 Bed 5 Private MD: ED Physician Elan Harman HPI: 12/19 13:23 This 29 yrs old Black Male presents to ER via Ambulatory with complaints of jr8 Vomiting/Diarrhea. 13:23 The patient presents to the emergency department with nausea, vomiting, diarrhea. jr8 Onset: The symptoms/episode began/occurred acutely, yesterday. Possible causes: unknown. The symptoms are aggravated by nothing. The symptoms are alleviated by nothing. Associated signs and symptoms: Pertinent negatives: fever. Severity of symptoms: At their worst the symptoms were mild in the emergency department the symptoms are unchanged. The patient has not experienced similar symptoms in the past. The patient has not recently seen a physician. Historical: - Allergies: 12:44 No Known Allergies; ss - PMHx: 12:44 DIALYSIS MWF; ESRD; Hypertension; ss - PSHx: 12:44 pins put in right thumb; fistula left upper arm; ss - Immunization history:: Adult Immunizations unknown. - Social history:: Smoking status: Patient denies any tobacco usage or history of. ROS: 13:23 Eyes: Negative for injury, pain, redness, and discharge, ENT: Negative for injury, jr8 pain, and discharge, Neck: Negative for injury, pain, and swelling, Cardiovascular: Negative for chest pain, palpitations, and edema, Respiratory: Negative for shortness of breath, cough, wheezing, and pleuritic chest pain, Back: Negative for injury and pain, MS/Extremity: Negative for injury and deformity, Skin: Negative for injury, rash, and discoloration, Neuro: Negative for headache, weakness, numbness, tingling, and seizure. 13:23 Abdomen/GI: Positive for nausea, vomiting, and diarrhea, abdominal cramps. Exam: 13:23 Eyes: Pupils equal round and reactive to light, extra-ocular motions intact. Lids and jr8 lashes normal. Conjunctiva and sclera are non-icteric and not injected. Cornea within normal limits. Periorbital areas with no swelling, redness, or edema. ENT: Nares patent. No nasal discharge, no septal abnormalities noted. Tympanic membranes are normal and external auditory canals are clear. Oropharynx with no redness, swelling, or masses, exudates, or evidence of obstruction, uvula midline. Mucous membranes moist. Neck: Trachea midline, no thyromegaly or masses palpated, and no cervical lymphadenopathy. Supple, full range of motion without nuchal rigidity, or vertebral point tenderness. No Meningismus. Cardiovascular: Regular rate and rhythm with a normal S1 and S2. No gallops, murmurs, or rubs. Normal PMI, no JVD. No pulse deficits. Respiratory: Lungs have equal breath sounds bilaterally, clear to auscultation and percussion. No rales, rhonchi or wheezes noted. No increased work of breathing, no retractions or nasal flaring. Back: No spinal tenderness. No costovertebral tenderness. Full range of motion. Skin: Warm, dry with normal turgor. Normal color with no rashes, no lesions, and no evidence of cellulitis. MS/ Extremity: Pulses equal, no cyanosis. Neurovascular intact. Full, normal range of motion. Neuro: Awake and alert, GCS 15, oriented to person, place, time, and situation. Cranial nerves II-XII grossly intact. Motor strength 5/5 in all extremities. Sensory grossly intact. 13:23 Abdomen/GI: Inspection: abdomen appears normal, Bowel sounds: active, all quadrants, Palpation: soft, in all quadrants, mild abdominal tenderness, in the abdomen diffusely, mass, is not appreciated, rebound tenderness, is not appreciated, voluntary guarding, is not appreciated, involuntary guarding, is not appreciated, no appreciated organomegaly, Indicators: McBurney's point is not tender, Vidal's sign is negative, Rovsing's sign is negative, Liver: tenderness, is not appreciated. Vital Signs: 12:42 BP 166 / 116; Pulse 73; Resp 16; Temp 98.0(TE); Pulse Ox 100% on R/A; Weight 97.52 kg; ss Height 6 ft. 2 in. (187.96 cm); Pain 8/10; 15:11 BP 172 / 102; Pulse 89; Resp 16; Pulse Ox 98% on R/A; kg 12:42 Body Mass Index 27.60 (97.52 kg, 187.96 cm) MDM: 13:17 Patient medically screened. jr8 14:54 Data reviewed: vital signs, nurses notes, lab test result(s), and as a result, I will jr8 discharge patient. Data interpreted: Pulse oximetry: on room air is 100 %. Interpretation: normal. Counseling: I had a detailed discussion with the patient and/or guardian regarding: the historical points, exam findings, and any diagnostic results supporting the discharge/admit diagnosis, lab results, the need for outpatient follow up, a family practitioner, to return to the emergency department if symptoms worsen or persist or if there are any questions or concerns that arise at home. 12/19 13:21 Order name: Basic Metabolic Panel; Complete Time: 14:53 [facility] 12/19 13:21 Order name: CBC with Diff; Complete Time: 14:36 [facility] 12/19 13:21 Order name: Hepatic Function; Complete Time: 14:53 [facility] 12/19 13:21 Order name: Lipase; Complete Time: 14:53 [facility] 12/19 13:21 Order name: IV Saline Lock; Complete Time: 14:24 [facility] 12/19 13:21 Order name: Labs collected and sent; Complete Time: 14:24 [facility] Administered Medications: No medications were administered Disposition: 15:47 Co-signature as Attending Physician, Elan Harman MD. rn Disposition: 12/19/20 14:54 Discharged to Home. Impression: Acute Gastroenteritis . - Condition is Stable. - Discharge Instructions: Viral Gastroenteritis, Adult. - Prescriptions for Bentyl 20 mg Oral Tablet - take 1 tablet by ORAL route every 12 hours As needed; 12 tablet. Zofran 4 mg Oral Tablet - take 1 tablet by ORAL route every 12 hours As needed; 20 tablet. - Medication Reconciliation Form, Thank You Letter, Antibiotic Education, Prescription Opioid Use form. - Follow up: Private Physician; When: 5 - 6 days; Reason: Recheck today's complaints, Continuance of care, Re-evaluation by your physician. - Problem is new. - Symptoms have improved. Signatures: Dispatcher [employer] EDMS Elan Harman MD MD rn Smirch, Shelby, RN RN ss Roszak, Josh, PA PA jr8 Ann Marie Harrell kg Corrections: (The following items were deleted from the chart) 13:25 13:23 CORONAVIRUS+MR.LAB.BRZ ordered. EDTN EDMS 14:18 13:23 CORONAVIRUS ordered. EDMS EDMS 15:22 14:54 12/19/2020 14:54 Discharged to Home. Impression: Acute Gastroenteritis . kg Condition is Stable. Forms are Medication Reconciliation Form, Thank You Letter, Antibiotic Education, Prescription Opioid Use. Follow up: Private Physician; When: 5 - 6 days; Reason: Recheck today's complaints, Continuance of care, Re-evaluation by your physician. Problem is new. Symptoms have improved. jr8
[2020-12-19 15:35] VITALS: TEMP 98
[2020-12-19 15:36] VITALS: BP 172/102; O2SAT 98
== END 2020-12-19 15:22 | disposition home or self-care (01) ==
LOC: ER 12:32
DX: U07.1 COVID-19 (principal); K52.9 Noninfective gastroenteritis and colitis, unspecified; I12.0 Hypertensive chronic kidney disease with stage 5 chronic kidney disease or end stage renal disease; N18.6 End stage renal disease; Z99.2 Dependence on renal dialysis
CPT/HCPCS: 85025; 80048; 36415; 80076; 83690; 99283; U0003